=== PATIENT | male | born 1955 | race Caucasian/White ===

== ENCOUNTER 2020-04-12 06:48 | Outpatient (REF) | payer MEDICARE, SELFPAY ==
[2020-04-12 07:55] LABS: MANUAL DIFF FLAG NO
[2020-04-12 07:59] LABS: Basophils Percent Auto 0.5 % (0-2); Eosinophils Absolute Auto 0.1 X10*3/uL (0.0-0.4); Eosinophils Percent Auto 1.5 % (0-4); Hematocrit 43.8 % (42-52); Hemoglobin 14.5 g/dl (14.0-18.0); Imm Gran Abs Auto 0.02 X10*3/uL (0.00-0.03); Imm Gran Pct Auto 0.3 % (0.0-0.4); Lymphocytes Absolute Auto 2.3 X10*3/uL (1.2-4.9); Lymphocytes Percent Auto 30.8 % (20-40); Mean Corpuscular HGB Conc 33.1 g/dl (31.0-36.0); Mean Corpuscular Hemoglobin 32.1 pg (27.0-33.0); Mean Corpuscular Volume 96.9 fL (80-98); Mean Platelet Volume 10.2 fL (9.4-12.4); Monocytes Absolute Auto 0.8 X10*3/uL (0.1-1.2); Monocytes Percent Auto 10.4 % (2-11); Neutrophils Absolute Auto 4.1 X10*3/uL (2.0-8.3); Neutrophils Percent Auto 56.5 % (45-73); Platelet Count 214 X10*3/uL (160-400); Red Blood Count 4.52 X10*6/uL (4.60-5.80); Red Cell Distribution Width 13.6 % (11.0-16.0); White Blood Count 7.3 X10*3/uL (4.8-10.8)
[2020-04-12 08:23] LABS: Alanine Aminotransferase 30 U/L (0-40); Albumin Level 4.4 g/dL (3.5-5.0); Alkaline Phosphatase 46 U/L (39-117); Anion Gap 12 (12-20); Aspartate Amino Transferase 23 U/L (5-37); Bilirubin Total 0.9 mg/dL (0.0-1.0); Blood Urea Nitrogen 14 mg/dL (9-16); Carbon Dioxide 29 mmol/L (22-29); Chloride 103 mmol/L (96-108); Cholesterol 180 mg/dL; Estimated Glomerular Filt Rate > 60; Glucose Fasting 126 mg/dL (60-99); HDL Cholesterol 50 mg/dL; LDL Cholesterol Calculated 84 mg/dl; Potassium 4.6 mmol/l (3.3-5.1); Sodium 139 mmol/L (135-145); Total Protein 7.1 g/dL (6.5-8.0); Triglycerides 233 mg/dL
[2020-04-12 08:25] LABS: Estimated Average Glucose 128 mg/dL; Hemoglobin A1c % 6.1 %
== END 2020-04-12 06:49 | disposition home or self-care (01) ==
LOC: HO.LAB 06:48
PROVIDERS: Visit Provider Internal Medicine Medical Oncology
DX: E11.9 Type 2 diabetes mellitus without complications (principal); I10 Essential (primary) hypertension; E78.00 Pure hypercholesterolemia, unspecified
CPT/HCPCS: 36415; 80053; 80061; 83036; 85025

== ENCOUNTER 2020-07-12 06:51 | Outpatient (REF) | payer MEDICARE, SELFPAY ==
[2020-07-12 08:09] LABS: MANUAL DIFF FLAG NO
[2020-07-12 08:21] LABS: Basophils Absolute Auto 0.1 X10*3/uL (0.0-0.2); Basophils Percent Auto 0.9 % (0-2); Eosinophils Absolute Auto 0.2 X10*3/uL (0.0-0.4); Hematocrit 42.2 % (42-52); Hemoglobin 13.8 g/dl (14.0-18.0); Imm Gran Abs Auto 0.01 X10*3/uL (0.00-0.03); Imm Gran Pct Auto 0.2 % (0.0-0.4); Lymphocytes Absolute Auto 2.1 X10*3/uL (1.2-4.9); Lymphocytes Percent Auto 37.4 % (20-40); Mean Corpuscular HGB Conc 32.7 g/dl (31.0-36.0); Mean Corpuscular Hemoglobin 32.1 pg (27.0-33.0); Mean Corpuscular Volume 98.1 fL (80-98); Monocytes Absolute Auto 0.6 X10*3/uL (0.1-1.2); Monocytes Percent Auto 10.5 % (2-11); Neutrophils Absolute Auto 2.7 X10*3/uL (2.0-8.3); Platelet Count 222 X10*3/uL (160-400); Red Cell Distribution Width 14.6 % (11.0-16.0); White Blood Count 5.6 X10*3/uL (4.8-10.8)
[2020-07-12 08:27] LABS: Estimated Average Glucose 114 mg/dL; Hemoglobin A1C 140.7385 umol/L; Hemoglobin A1c % 5.6 %
[2020-07-12 08:42] LABS: Alanine Aminotransferase 23 U/L (0-40); Albumin Level 4.2 g/dL (3.5-5.0); Alkaline Phosphatase 45 U/L (39-117); Anion Gap 11 (12-20); Aspartate Amino Transferase 20 U/L (5-37); Blood Urea Nitrogen 18 mg/dL (9-16); Calcium 9.3 mg/dL (8.4-10.2); Carbon Dioxide 30 mmol/L (22-29); Chloride 105 mmol/L (96-108); Cholesterol 178 mg/dL; Estimated Glomerular Filt Rate > 60; Glucose Random 138 mg/dL (60-115); HDL Cholesterol 47 mg/dL; LDL Cholesterol Calculated 95 mg/dl; Potassium 4.8 mmol/L (3.3-5.1); Sodium 141 mmol/L (135-145); Total Protein 7.1 g/dL (6.5-8.0); Triglycerides 181 mg/dL
== END 2020-07-12 06:52 | disposition home or self-care (01) ==
LOC: HO.LAB 06:51
PROVIDERS: Visit Provider Internal Medicine Medical Oncology
DX: E11.9 Type 2 diabetes mellitus without complications (principal); I10 Essential (primary) hypertension; E78.49 Other hyperlipidemia
CPT/HCPCS: 36415; 80053; 80061; 83036; 85025

== ENCOUNTER 2020-10-18 06:38 | Outpatient (REF) | payer MEDICARE, SELFPAY ==
[2020-10-18 07:17] LABS: MANUAL DIFF FLAG NO
[2020-10-18 07:20] LABS: Basophils Percent Auto 0.6 % (0-2); Eosinophils Absolute Auto 0.1 X10*3/uL (0.0-0.4); Hematocrit 45.8 % (42-52); Imm Gran Abs Auto 0.01 X10*3/uL (0.00-0.03); Imm Gran Pct Auto 0.2 % (0.0-0.4); Lymphocytes Absolute Auto 2.2 X10*3/uL (1.2-4.9); Lymphocytes Percent Auto 34.3 % (20-40); Mean Corpuscular HGB Conc 32.8 g/dl (31.0-36.0); Mean Corpuscular Hemoglobin 31.5 pg (27.0-33.0); Mean Corpuscular Volume 96.2 fL (80-98); Mean Platelet Volume 10.2 fL (9.4-12.4); Monocytes Absolute Auto 0.6 X10*3/uL (0.1-1.2); Monocytes Percent Auto 10.1 % (2-11); Neutrophils Absolute Auto 3.4 X10*3/uL (2.0-8.3); Neutrophils Percent Auto 52.8 % (45-73); Platelet Count 209 X10*3/uL (160-400); Red Blood Count 4.76 X10*6/uL (4.60-5.80); Red Cell Distribution Width 13.5 % (11.0-16.0); White Blood Count 6.4 X10*3/uL (4.8-10.8)
[2020-10-18 07:44] LABS: Alanine Aminotransferase 25 U/L (0-40); Albumin Level 4.3 g/dL (3.5-5.0); Alkaline Phosphatase 45 U/L (39-117); Anion Gap 11 (12-20); Aspartate Amino Transferase 19 U/L (5-37); Bilirubin Total 0.8 mg/dL (0.0-1.0); Blood Urea Nitrogen 18 mg/dL (9-16); Calcium 9.7 mg/dL (8.4-10.2); Carbon Dioxide 30 mmol/L (22-29); Chloride 104 mmol/L (96-108); Cholesterol 180 mg/dL; Estimated Glomerular Filt Rate > 60; Glucose Fasting 145 mg/dL (60-99); HDL Cholesterol 46 mg/dL; LDL Cholesterol Calculated 93 mg/dl; Potassium 4.9 mmol/L (3.3-5.1); Sodium 140 mmol/L (135-145); Total Protein 7.2 g/dL (6.5-8.0); Triglycerides 205 mg/dL
[2020-10-18 09:04] LABS: Estimated Average Glucose 117 mg/dL; Hemoglobin A1C 149.8652 umol/L; Hemoglobin A1c % 5.7 %
== END 2020-10-18 06:39 | disposition home or self-care (01) ==
LOC: HO.LAB 06:38
PROVIDERS: PCP Internal Medicine Medical Oncology; Visit Provider Internal Medicine Medical Oncology
DX: I10 Essential (primary) hypertension (principal); E78.00 Pure hypercholesterolemia, unspecified; E11.42 Type 2 diabetes mellitus with diabetic polyneuropathy
CPT/HCPCS: 36415; 80053; 80061; 83036; 85025

== ENCOUNTER 2020-11-09 10:19 | Outpatient (REF) | payer MEDICARE, SELFPAY ==
--- NOTE | ~2020-11-09 | XR_ITS ---
EXAMINATION: CR X-RAY KNEE BILATERAL STANDING, KNEE LEFT 2 VIEW CLINICAL INFORMATION: Left knee pain. COMPARISON: 11/23/2019 the radiographs. TECHNIQUE: Bilateral standing AP views of the bilateral knees and 2 views of the left knee were obtained. FINDINGS: Left: Minimal tricompartmental degenerative joint changes are seen. No acute fractures seen. There is a small to moderate suprapatellar joint effusion. The soft tissues are unremarkable. Right: Mild femoral-tibial degenerative joint changes most pronounced medially without significant change. No acute abnormality. XR/XR knee LT 2V IMPRESSION: 1. Minimal left knee tricompartment degenerative joint changes with small to moderate suprapatellar joint effusion. 2. Mild right knee tricompartmental degenerative joint changes without significant change.
--- NOTE | ~2020-11-09 | XR_ITS ---
EXAMINATION: CR X-RAY KNEE BILATERAL STANDING, KNEE LEFT 2 VIEW CLINICAL INFORMATION: Left knee pain. COMPARISON: 11/23/2019 the radiographs. TECHNIQUE: Bilateral standing AP views of the bilateral knees and 2 views of the left knee were obtained. FINDINGS: Left: Minimal tricompartmental degenerative joint changes are seen. No acute fractures seen. There is a small to moderate suprapatellar joint effusion. The soft tissues are unremarkable. Right: Mild femoral-tibial degenerative joint changes most pronounced medially without significant change. No acute abnormality. XR/XR knee standing BI IMPRESSION: 1. Minimal left knee tricompartment degenerative joint changes with small to moderate suprapatellar joint effusion. 2. Mild right knee tricompartmental degenerative joint changes without significant change.
== END 2020-11-09 10:20 | disposition home or self-care (01) ==
LOC: HO.HOSX 10:19
PROVIDERS: Visit Provider Orthopaedic Surgery
DX: M17.12 Unilateral primary osteoarthritis, left knee (principal)
CPT/HCPCS: 20610; 73560; 73565; 99212; J1040

== ENCOUNTER 2020-12-22 10:29 | Emergency (ER) | payer MEDICARE, SELFPAY ==
--- NOTE | ~2020-12-22 | XR_ITS ---
EXAMINATION: XR SHOULDER, LEFT CLINICAL INFORMATION: Limited range of motion and pain. COMPARISON: None TECHNIQUE: AP external rotation, Grashey, scapular Y, and axillary views of the left shoulder. FINDINGS: The bones and soft tissues are normal. No fracture. Glenohumeral and acromioclavicular alignment is anatomic with normal joint space. No abnormal soft tissue calcifications. XR/XR shoulder LT min 2V IMPRESSION: Unremarkable left shoulder.
[2020-12-22 10:55] VITALS: BP 118/80; PULSE 88; RESP 18; TEMP 36.3; O2SAT 98; BMI 35.9
--- NOTE | 2020-12-22 11:44 | ED.FALL ---
HPI - Fall General Chief Complaint: Fall Stated Complaint: FALL Time Seen by Provider: 12/22/20 11:26 History of Present Illness HPI Narrative: Patient complains of left shoulder pain and left knee abrasion after a slip and fall this morning on the sidewalk, no other injury no loss consciousness no headache no neck pain no back pain no numbness weakness or tingling, shoulder pain is mild but worse with movement, no blood thinner and he did not hit his head Related Data Home Medications Medication Instructions Recorded Confirmed simvastatin 5 mg tablet 5 mg PO DAILY 11/09/20 Allergies Allergy/AdvReac Type Severity Reaction Status Date / Time No Known Allergies [NKA] Allergy Verified 11/09/20 13:00 Review of Systems Review of Systems: Positive for bilateral knee pain and left shoulder pain Negatives are no headache no head injury no neck pain no numbness weakness or tingling no back pain no chest pain no preceding dizziness or lightheadedness no fainting no feeling faint no chest pain no palpitations, no numbness weakness or tingling Yes all other systems are reviewed and are negative [facility] Past Medical History Source: nursing notes reviewed Medical History (Updated 12/23/20 @ 00:01 by Vinicius Colvin) High blood pressure High cholesterol History of neuropathy Social History Social History (Updated 11/09/20 @ 13:02 by Kendal Ojeda) Alcohol intake: never Smoked in Last 30 Days: No Use of substances other than those prescribed or required for medical reasons: No Advance Directives: Yes Advance Directives Information Provided: Yes Advance Directives on File: No Current occupational status: retired and disabled 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 Physical Exam Vital Signs: Vital Signs: Last Vital Signs Temp 97.3 F 12/22/20 10:55 Pulse 88 12/22/20 10:55 Resp 18 12/22/20 10:55 BP 118/80 12/22/20 10:55 Pulse Ox 98 12/22/20 10:55 Body Mass Index 35.9 General appearance no acute distress, cooperative Head is normocephalic atraumatic The neck is supple and nontender The chest is clear to auscultation bilateral with no tenderness to the chest wall no rib tenderness no pleuritic pain The abdomen soft nontender The extremities there is good range of motion in both knees but there is some tenderness and abrasion, neurovascular intact distal The left shoulder had some anterior and lateral tenderness, range of motion was mildly limited by discomfort there was no swelling no deformity it is neurovascular intact distal and the skin was normal without wound or laceration Neuro cranial nerves 2-12 intact as tested, no motor deficit Course Course Course Narrative: X-rays were negative and well-appearing patient is discharged to follow with orthopedics if needed X-rays of left shoulder and both knees were done with no acute fractures a low of both knees did show osteoarthritis Discharge Plan Discharge Clinical Impression: Sprain of left shoulder, Abrasion of knee, left Patient Disposition: Home, Self-Care Additional Instructions: X-ray did not show any broken bone in the shoulder, but most shoulder injuries are soft tissue injuries which do not show up on x-ray follow Follow with orthopedist for further evaluation We gave you a sling for the shoulder but if you use it for too long you lose muscle tone and range of motion, so make sure to move the arm and test range of motion whenever possible We gave you a tetanus shot for the abrasion on her knee You can use Tylenol, or Naprosyn occasionally for pain as needed Return any time any concerns Referrals: Howie Rico MD [Physician] - 10 days (Left shoulder sprain) Interventions: ED Discharge Assessment Last Done: 12/22/20 11:54 Discharge Date/Time: 12/22/20 11:55
[2020-12-22] MEDS: Diphth,Pertus(ACell),Tet Adult 0.5 ML SYRINGE IM (11:49)
== END 2020-12-22 11:55 | disposition home or self-care (01) ==
PROVIDERS: Emergency Provider Emergency Medicine; PCP Internal Medicine Medical Oncology
DX: S43.402A Unspecified sprain of left shoulder joint, initial encounter (principal); S80.212A Abrasion, left knee, initial encounter; W01.0XXA Fall on same level from slipping, tripping and stumbling without subsequent striking against object, initial encounter; Y93.01 Activity, walking, marching and hiking; Y92.480 Sidewalk as the place of occurrence of the external cause; Y99.9 Unspecified external cause status
CPT/HCPCS: 73030; 90471; 90715; 99284

== ENCOUNTER 2021-01-30 07:01 | Outpatient (REF) | payer MEDICARE, SELFPAY ==
[2021-01-30 07:38] LABS: MANUAL DIFF FLAG NO
[2021-01-30 07:44] LABS: Basophils Absolute Auto 0.1 X10*3/uL (0.0-0.2); Basophils Percent Auto 0.8 % (0-2); Eosinophils Absolute Auto 0.1 X10*3/uL (0.0-0.4); Eosinophils Percent Auto 1.9 % (0-4); Hematocrit 41.6 % (42-52); Hemoglobin 13.9 g/dl (14.0-18.0); Imm Gran Abs Auto 0.01 X10*3/uL (0.00-0.03); Imm Gran Pct Auto 0.2 % (0.0-0.4); Lymphocytes Absolute Auto 2.2 X10*3/uL (1.2-4.9); Lymphocytes Percent Auto 37.9 % (20-40); Mean Corpuscular HGB Conc 33.4 g/dl (31.0-36.0); Mean Corpuscular Hemoglobin 32.2 pg (27.0-33.0); Mean Corpuscular Volume 96.3 fL (80-98); Mean Platelet Volume 10.2 fL (9.4-12.4); Monocytes Absolute Auto 0.7 X10*3/uL (0.1-1.2); Monocytes Percent Auto 12.2 % (2-11); Neutrophils Absolute Auto 2.8 X10*3/uL (2.0-8.3); Platelet Count 218 X10*3/uL (160-400); Red Blood Count 4.32 X10*6/uL (4.60-5.80); Red Cell Distribution Width 13.5 % (11.0-16.0); White Blood Count 5.9 X10*3/uL (4.8-10.8)
[2021-01-30 07:57] LABS: Microalbum/Creatinine Ratio Ur 7.3 ug/mg cr
[2021-01-30 07:59] LABS: Estimated Average Glucose 111 mg/dL; Hemoglobin A1c % 5.5 %
[2021-01-30 08:00] LABS: Alanine Aminotransferase 20 U/L (0-40); Albumin Level 4.2 g/dL (3.5-5.0); Alkaline Phosphatase 48 U/L (39-117); Anion Gap 11 (12-20); Aspartate Amino Transferase 18 U/L (5-37); Blood Urea Nitrogen 18 mg/dL (9-16); Calcium 9.4 mg/dL (8.4-10.2); Carbon Dioxide 28 mmol/L (22-29); Chloride 105 mmol/L (96-108); Cholesterol 174 mg/dL; Estimated Glomerular Filt Rate > 60; Glucose Fasting 129 mg/dL (60-99); HDL Cholesterol 43 mg/dL; LDL Cholesterol Calculated 92 mg/dl; Potassium 4.8 mmol/L (3.3-5.1); Sodium 139 mmol/L (135-145); Triglycerides 198 mg/dL
== END 2021-01-30 07:02 | disposition home or self-care (01) ==
LOC: HO.LAB 07:01
PROVIDERS: PCP Internal Medicine Medical Oncology; Visit Provider Internal Medicine Medical Oncology
DX: E11.9 Type 2 diabetes mellitus without complications (principal); I10 Essential (primary) hypertension; E78.00 Pure hypercholesterolemia, unspecified
CPT/HCPCS: 36415; 80053; 80061; 82043; 83036; 85025

== ENCOUNTER 2021-05-01 07:01 | Outpatient (REF) | payer MEDICARE, SELFPAY ==
[2021-05-01 07:10] LABS: MANUAL DIFF FLAG NO
[2021-05-01 07:20] LABS: Basophils Percent Auto 0.6 % (0-2); Eosinophils Absolute Auto 0.1 X10*3/uL (0.0-0.4); Hematocrit 44.5 % (42.0-52.0); Hemoglobin 14.8 g/dl (14.0-18.0); Imm Gran Abs Auto 0.02 X10*3/uL (0.00-0.03); Imm Gran Pct Auto 0.3 % (0.0-0.4); Lymphocytes Absolute Auto 2.4 X10*3/uL (1.2-4.9); Lymphocytes Percent Auto 35.1 % (20-40); Mean Corpuscular HGB Conc 33.3 g/dl (31.0-36.0); Mean Corpuscular Volume 96.3 fL (80.0-98.0); Mean Platelet Volume 9.9 fL (9.4-12.4); Monocytes Absolute Auto 0.8 X10*3/uL (0.1-1.2); Monocytes Percent Auto 11.6 % (2-11); Neutrophils Absolute Auto 3.5 x10*3/uL (2.0-8.3); Neutrophils Percent Auto 50.4 % (45-73); Platelet Count 203 X10*3/uL (160-400); Red Blood Count 4.62 X10*6/uL (4.60-5.80); Red Cell Distribution Width 13.7 % (11.0-16.0); White Blood Count 6.9 X10*3/uL (4.8-10.8)
[2021-05-01 07:32] LABS: Estimated Average Glucose 123 mg/dL; Hemoglobin A1c % 5.9 %
[2021-05-01 07:47] LABS: Alanine Aminotransferase 22 U/L (0-40); Albumin Level 4.2 g/dL (3.5-5.0); Alkaline Phosphatase 51 U/L (39-117); Anion Gap 12 (12-20); Aspartate Amino Transferase 19 U/L (5-37); Blood Urea Nitrogen 18 mg/dL (9-16); Calcium 9.5 mg/dL (8.4-10.2); Carbon Dioxide 27 mmol/L (22-29); Chloride 106 mmol/L (96-108); Cholesterol 187 mg/dL; Estimated Glomerular Filt Rate > 60; Glucose Fasting 134 mg/dL (60-99); HDL Cholesterol 42 mg/dL; LDL Cholesterol Calculated 106 mg/dl; Potassium 4.9 mmol/L (3.3-5.1); Sodium 140 mmol/L (135-145); Total Protein 7.2 g/dL (6.5-8.0); Triglycerides 199 mg/dL
[2021-05-01 09:49] LABS: Creatinine Urine 171.95 mg/dL; Microalbum/Creatinine Ratio Ur 8.1 ug/mg cr
== END 2021-05-01 07:02 | disposition home or self-care (01) ==
LOC: HO.LAB 07:01
PROVIDERS: PCP Internal Medicine Medical Oncology; Visit Provider Internal Medicine Medical Oncology
DX: E11.9 Type 2 diabetes mellitus without complications (principal); E78.01 Familial hypercholesterolemia
CPT/HCPCS: 36415; 80053; 80061; 82043; 83036; 85025

== ENCOUNTER 2021-07-31 06:58 | Outpatient (REF) | payer MEDICARE, SELFPAY ==
[2021-07-31 07:21] LABS: MANUAL DIFF FLAG NO
[2021-07-31 08:12] LABS: Basophils Percent Auto 0.5 % (0-2); Eosinophils Absolute Auto 0.1 X10*3/uL (0.0-0.4); Eosinophils Percent Auto 1.6 % (0-4); Hematocrit 45.3 % (42.0-52.0); Hemoglobin 14.9 g/dl (14.0-18.0); Imm Gran Abs Auto 0.02 X10*3/uL (0.00-0.03); Imm Gran Pct Auto 0.3 % (0.0-0.4); Lymphocytes Absolute Auto 2.1 X10*3/uL (1.2-4.9); Lymphocytes Percent Auto 32.9 % (20-40); Mean Corpuscular HGB Conc 32.9 g/dl (31.0-36.0); Mean Corpuscular Hemoglobin 31.4 pg (27.0-33.0); Mean Corpuscular Volume 95.6 fL (80.0-98.0); Mean Platelet Volume 10.4 fL (9.4-12.4); Monocytes Absolute Auto 0.7 X10*3/uL (0.1-1.2); Monocytes Percent Auto 10.4 % (2-11); Neutrophils Absolute Auto 3.5 x10*3/uL (2.0-8.3); Neutrophils Percent Auto 54.3 % (45-73); Platelet Count 213 X10*3/uL (160-400); Red Blood Count 4.74 X10*6/uL (4.60-5.80); Red Cell Distribution Width 13.8 % (11.0-16.0); White Blood Count 6.4 X10*3/uL (4.8-10.8)
[2021-07-31 08:28] LABS: Estimated Average Glucose 120 mg/dL; Hemoglobin A1C 148.8465 umol/L; Hemoglobin A1c % 5.8 %
[2021-07-31 08:49] LABS: Alanine Aminotransferase 20 U/L (0-40); Albumin Level 4.3 g/dL (3.5-5.0); Alkaline Phosphatase 52 U/L (39-117); Anion Gap 11 (12-20); Aspartate Amino Transferase 18 U/L (5-37); Bilirubin Total 0.8 mg/dL (0.0-1.0); Blood Urea Nitrogen 19 mg/dL (9-16); Calcium 9.8 mg/dL (8.4-10.2); Carbon Dioxide 29 mmol/L (22-29); Chloride 105 mmol/L (96-108); Cholesterol 194 mg/dL; Estimated Glomerular Filt Rate > 60; Glucose Fasting 135 mg/dL (60-99); HDL Cholesterol 45 mg/dL; LDL Cholesterol Calculated 109 mg/dl; Potassium 5.1 mmol/L (3.3-5.1); Sodium 140 mmol/L (135-145); Total Protein 7.3 g/dL (6.5-8.0); Triglycerides 201 mg/dL
== END 2021-07-31 06:59 | disposition home or self-care (01) ==
LOC: HO.LAB 06:58
PROVIDERS: PCP Internal Medicine Medical Oncology; Visit Provider Internal Medicine Medical Oncology
DX: E11.9 Type 2 diabetes mellitus without complications (principal); E66.9 Obesity, unspecified; E78.01 Familial hypercholesterolemia
CPT/HCPCS: 36415; 80053; 80061; 83036; 85025

== ENCOUNTER → 2021-09-26 08:33 | Outpatient (BNVA) | payer MEDICARE, SELFPAY | PROVIDERS: PCP Internal Medicine Medical Oncology; Visit Provider Orthopaedic Surgery | DX: M17.12 Unilateral primary osteoarthritis, left knee (principal); E11.9 Type 2 diabetes mellitus without complications | CPT/HCPCS: 20610; 99212; J1100 ==

== ENCOUNTER 2021-10-30 06:25 | Outpatient (REF) | payer MEDICARE, SELFPAY ==
[2021-10-30 06:37] LABS: MANUAL DIFF FLAG NO
[2021-10-30 07:18] LABS: Basophils Absolute Auto 0.1 X10*3/uL (0.0-0.2); Basophils Percent Auto 0.7 % (0-2); Eosinophils Absolute Auto 0.1 X10*3/uL (0.0-0.4); Eosinophils Percent Auto 1.6 % (0-4); Hematocrit 42.6 % (42.0-52.0); Hemoglobin 14.2 g/dl (14.0-18.0); Imm Gran Abs Auto 0.01 X10*3/uL (0.00-0.03); Imm Gran Pct Auto 0.1 % (0.0-0.4); Lymphocytes Absolute Auto 2.1 X10*3/uL (1.2-4.9); Lymphocytes Percent Auto 31.5 % (20-40); Mean Corpuscular HGB Conc 33.3 g/dl (31.0-36.0); Mean Corpuscular Hemoglobin 32.2 pg (27.0-33.0); Mean Corpuscular Volume 96.6 fL (80.0-98.0); Mean Platelet Volume 10.2 fL (9.4-12.4); Monocytes Absolute Auto 0.8 X10*3/uL (0.1-1.2); Monocytes Percent Auto 11.5 % (2-11); Neutrophils Absolute Auto 3.7 x10*3/uL (2.0-8.3); Neutrophils Percent Auto 54.6 % (45-73); Platelet Count 208 X10*3/uL (160-400); Red Blood Count 4.41 X10*6/uL (4.60-5.80); Red Cell Distribution Width 14.2 % (11.0-16.0); White Blood Count 6.7 X10*3/uL (4.8-10.8)
[2021-10-30 07:39] LABS: Alanine Aminotransferase 26 U/L (0-40); Albumin Level 4.1 g/dL (3.5-5.0); Alkaline Phosphatase 53 U/L (39-117); Anion Gap 10 (12-20); Aspartate Amino Transferase 16 U/L (5-37); Bilirubin Total 0.7 mg/dL (0.0-1.0); Blood Urea Nitrogen 17 mg/dL (9-16); Calcium 9.6 mg/dL (8.4-10.2); Carbon Dioxide 30 mmol/L (22-29); Chloride 105 mmol/L (96-108); Cholesterol 173 mg/dL; Estimated Glomerular Filt Rate > 60; Glucose Fasting 148 mg/dL (60-99); HDL Cholesterol 41 mg/dL; LDL Cholesterol Calculated 91 mg/dl; Potassium 4.7 mmol/L (3.3-5.1); Sodium 140 mmol/L (135-145); Total Protein 6.9 g/dL (6.5-8.0); Triglycerides 209 mg/dL
[2021-10-30 07:44] LABS: Estimated Average Glucose 123 mg/dL; Hemoglobin A1c % 5.9 %
[2021-10-30 09:08] LABS: Creatinine Urine 152.28 mg/dL; Microalbum/Creatinine Ratio Ur 4.5 ug/mg cr
== END 2021-10-30 06:26 | disposition home or self-care (01) ==
LOC: HO.LAB 06:25
PROVIDERS: PCP Internal Medicine Medical Oncology; Visit Provider Internal Medicine Medical Oncology
DX: E11.9 Type 2 diabetes mellitus without complications (principal); E66.9 Obesity, unspecified; E78.01 Familial hypercholesterolemia
CPT/HCPCS: 36415; 80053; 80061; 82043; 83036; 85025

== ENCOUNTER 2022-03-25 06:30 | Outpatient (REF) | payer MEDICARE, SELFPAY ==
[2022-03-25 06:40] LABS: MANUAL DIFF FLAG NO
[2022-03-25 07:38] LABS: Basophils Absolute Auto 0.1 X10*3/uL (0.0-0.2); Basophils Percent Auto 0.7 % (0-2); Eosinophils Absolute Auto 0.2 X10*3/uL (0.0-0.4); Eosinophils Percent Auto 2.2 % (0-4); Hematocrit 39.7 % (42.0-52.0); Hemoglobin 13.3 g/dl (14.0-18.0); Imm Gran Abs Auto 0.02 X10*3/uL (0.00-0.03); Imm Gran Pct Auto 0.3 % (0.0-0.4); Lymphocytes Absolute Auto 2.3 X10*3/uL (1.2-4.9); Lymphocytes Percent Auto 33.1 % (20-40); Mean Corpuscular HGB Conc 33.5 g/dl (31.0-36.0); Mean Corpuscular Hemoglobin 33.1 pg (27.0-33.0); Mean Corpuscular Volume 98.8 fL (80.0-98.0); Mean Platelet Volume 10.4 fL (9.4-12.4); Monocytes Absolute Auto 0.8 X10*3/uL (0.1-1.2); Monocytes Percent Auto 11.5 % (2-11); Neutrophils Absolute Auto 3.6 x10*3/uL (2.0-8.3); Neutrophils Percent Auto 52.2 % (45-73); Platelet Count 236 X10*3/uL (160-400); Red Blood Count 4.02 X10*6/uL (4.60-5.80); Red Cell Distribution Width 15.5 % (11.0-16.0); White Blood Count 6.8 X10*3/uL (4.8-10.8)
[2022-03-25 10:39] LABS: Alanine Aminotransferase 14 U/L (0-40); Albumin Level 4.3 g/dL (3.5-5.0); Alkaline Phosphatase 61 U/L (39-117); Anion Gap 17 (12-20); Aspartate Amino Transferase 15 U/L (5-37); Bilirubin Total 0.9 mg/dL (0.0-1.0); Blood Urea Nitrogen 19 mg/dL (9-16); Calcium 9.3 mg/dL (8.4-10.2); Carbon Dioxide 26 mmol/L (22-29); Chloride 105 mmol/L (96-108); Cholesterol 182 mg/dL; Estimated Glomerular Filt Rate > 60; Glucose Fasting 126 mg/dL (60-99); HDL Cholesterol 45 mg/dL; LDL Cholesterol Calculated 97 mg/dl; Potassium 4.8 mmol/L (3.3-5.1); Sodium 143 mmol/L (135-145); Total Protein 7.2 g/dL (6.5-8.0); Triglycerides 201 mg/dL
== END 2022-03-25 06:31 | disposition home or self-care (01) ==
LOC: HO.LAB 06:30
PROVIDERS: PCP Internal Medicine Medical Oncology; Visit Provider Internal Medicine Medical Oncology
DX: E11.9 Type 2 diabetes mellitus without complications (principal); E66.9 Obesity, unspecified; I10 Essential (primary) hypertension
CPT/HCPCS: 36415; 80053; 80061; 85025

== ENCOUNTER 2022-06-11 06:24 | Outpatient (REF) | payer MEDICARE, SELFPAY ==
[2022-06-11 06:29] LABS: MANUAL DIFF FLAG NO
[2022-06-11 07:09] LABS: Basophils Percent Auto 0.6 % (0-2); Eosinophils Absolute Auto 0.1 X10*3/uL (0.0-0.4); Eosinophils Percent Auto 1.8 % (0-4); Hematocrit 42.5 % (42.0-52.0); Imm Gran Abs Auto 0.01 X10*3/uL (0.00-0.03); Imm Gran Pct Auto 0.2 % (0.0-0.4); Lymphocytes Absolute Auto 2.4 X10*3/uL (1.2-4.9); Lymphocytes Percent Auto 35.9 % (20-40); Mean Corpuscular HGB Conc 32.9 g/dl (31.0-36.0); Mean Corpuscular Hemoglobin 31.8 pg (27.0-33.0); Mean Corpuscular Volume 96.6 fL (80.0-98.0); Mean Platelet Volume 10.3 fL (9.4-12.4); Monocytes Absolute Auto 0.7 X10*3/uL (0.1-1.2); Monocytes Percent Auto 11.2 % (2-11); Neutrophils Absolute Auto 3.3 x10*3/uL (2.0-8.3); Neutrophils Percent Auto 50.3 % (45-73); Platelet Count 217 X10*3/uL (160-400); Red Cell Distribution Width 13.4 % (11.0-16.0); White Blood Count 6.6 X10*3/uL (4.8-10.8)
[2022-06-11 07:26] LABS: Estimated Average Glucose 111 mg/dL; Hemoglobin A1c % 5.5 %
[2022-06-11 07:47] LABS: Alanine Aminotransferase 22 U/L (0-40); Albumin Level 4.3 g/dL (3.5-5.0); Alkaline Phosphatase 50 U/L (39-117); Anion Gap 13 (12-20); Aspartate Amino Transferase 17 U/L (5-37); Bilirubin Total 0.9 mg/dL (0.0-1.0); Blood Urea Nitrogen 18 mg/dL (9-16); Calcium 9.9 mg/dL (8.4-10.2); Carbon Dioxide 29 mmol/L (22-29); Chloride 105 mmol/L (96-108); Cholesterol 195 mg/dL; Estimated Glomerular Filt Rate > 60; Glucose Fasting 128 mg/dL (60-99); HDL Cholesterol 54 mg/dL; LDL Cholesterol Calculated 105 mg/dl; Sodium 142 mmol/L (135-145); Total Protein 7.2 g/dL (6.5-8.0); Triglycerides 181 mg/dL
[2022-06-11 08:04] LABS: Prostate Specific Antigen 0.23 ng/mL (<0.05-4.0); Vitamin D 25-OH Total 23.3 ng/mL (>30)
== END 2022-06-11 06:25 | disposition home or self-care (01) ==
LOC: HO.LAB 06:24
PROVIDERS: PCP Internal Medicine Medical Oncology; Visit Provider Internal Medicine Medical Oncology
DX: Z12.5 Encounter for screening for malignant neoplasm of prostate (principal); E11.9 Type 2 diabetes mellitus without complications; E78.01 Familial hypercholesterolemia
CPT/HCPCS: 36415; 80053; 80061; 82306; 83036; 84153; 85025

== ENCOUNTER 2022-07-28 07:07 | Day surgery (SDC) | payer MEDICARE, SELFPAY ==
[2022-07-28 07:14] VITALS: BMI 33.2
[2022-07-28 07:27] VITALS: BP 137/71; PULSE 68; RESP 16; TEMP 36.2; O2SAT 98
[2022-07-28 07:35] LABS: Glucose, Whole Blood 117 mg/dL (60-115)
[2022-07-28 09:55] VITALS: BP 84/56; PULSE 74; RESP 16; TEMP 36.8; O2SAT 96
--- NOTE | 2022-07-28 09:56 | P.BOP_ITS ---
Brief Operative Note Date of Service: 07/28/22 Pre-op diagnosis: Screening Post-op diagnosis: other (Diverticulosis) Procedure: Colonoscopy to the cecum Surgeon: Damon Colbert Anesthesia: MAC Was an Commercial Real Estate Appraiser used for this Procedure?: No Estimated blood loss (mL): 0 Pathology: none sent Condition: stable Disposition: PACU
[2022-07-28 10:10] VITALS: BP 105/70; PULSE 54; RESP 16; TEMP 36.8; O2SAT 98
--- NOTE | 2022-07-28 11:08 | OP_ITS ---
SURGEON: Damon Colbert MD INDICATIONS: The patient presents for followup of personal history of tubular adenoma of the colon and need for colorectal cancer screening. Full consent has been obtained from him for this, including risks of bleeding and perforation. PREOPERATIVE DIAGNOSIS: POSTOPERATIVE DIAGNOSIS: PROCEDURE PERFORMED: Colonoscopy to the cecum. ESTIMATED BLOOD LOSS: COMPLICATIONS: ANESTHESIA: Monitored anesthesia care. ASSISTANTS: SPECIMENS: PREOPERATIVE DIAGNOSES: Colorectal cancer screening and personal history of tubular adenomas of the colon. POSTOPERATIVE DIAGNOSES: Colorectal cancer screening and personal history of tubular adenomas of the colon, diverticulosis, internal hemorrhoids and limited prep. DESCRIPTION OF PROCEDURE: The patient was placed in the left lateral decubitus position. The digital rectal exam revealed no abnormalities. The Olympus video pediatric colonoscope was entered into the rectum and advanced to the cecum. Advancement to the cecum was difficult and required abdominal wall pressure. Once in the cecum, I did identify a normal-appearing cecal pouch with appendiceal orifice and a normal-appearing ileocecal valve. The entire cecum was well visualized and appeared normal without any sign of mass or ulceration. The scope was slowly withdrawn assessing all mucosal surfaces carefully. Preparation of the ascending and transverse colon was good. Preparation of the sigmoid and descending colon was definitely limited by some solid and liquid stool which was all irrigated and suctioned away as best as possible, but still limited visualization. I did not visualize any polyps, colitis nor angiodysplasias. There was mild amount of sigmoid diverticulosis. In the rectum, the scope was retroflexed visualizing internal hemorrhoids, but no other pathology. The rectal mucosa appeared normal. The scope was straightened and withdrawn from the patient. He tolerated the procedure well and was returned to the recovery area in stable condition. IMPRESSION: 1. Diverticulosis. 2. Internal hemorrhoids. PLAN: Given his previous history, I would recommend a followup colonoscopy in 5 years for further surveillance. I would recommend that he will have a complete 2-day prep at that time to facilitate a better clean out. Given colonoscopies in 2006, 2011, 2018 and today, along with no GI symptoms and no family history of colon cancer, I do not think a colonoscopy needs to be done any sooner than in 5 years. MD NERI Vinson/JOSEPH / [phone] [facility]
--- NOTE | 2022-07-28 13:49 | HO.ANESPROP2 ---
HPI - Anesthesia Eval Consult details Narrative: screening [facility] Active Problems Active Problems: All Active Problems (Updated 07/24/22 @ 13:51 by Saima Feliz RN) Primary osteoarthritis of left knee (Acute) Past Medical History Medical History (Updated 07/24/22 @ 13:51 by Saima Feliz RN) Diabetes High blood pressure High cholesterol History of neuropathy Family History Family history of problems with anesthesia: No Surgical History Surgical History (Updated 07/24/22 @ 13:52 by Saima Feliz RN) History of arthroscopy of left knee History of back surgery Hx of colonoscopy History of Problems with Anesthesia: No Social History Social History (Updated 09/26/21 @ 08:56 by Gema Recinos Gómez) Alcohol intake: never Patient Tobacco Use Status: Never used Tobacco Second Hand Smoke Exposure: No Use of substances other than those prescribed or required for medical reasons: No Are you DNR?: No Advance Directives: No Advance Directives Information Provided: Yes Advance Directives on File: No Current occupational status: retired and disabled 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 Meds Allergies Allergy/AdvReac Type Severity Reaction Status Date / Time No Known Allergies [NKA] Allergy Verified 09/26/21 08:50 Home Medications Medication Instructions Recorded Confirmed Last Taken Type simvastatin 5 mg tablet 40 mg PO DAILY 11/09/20 07/28/22 Unknown History aspirin 81 mg tablet,delayed 81 mg PO DAILY 09/26/21 07/28/22 07/21/22 History release lisinopril 40 mg tablet 40 mg PO DAILY 09/26/21 07/28/22 07/28/22 History metformin 500 mg tablet 500 mg PO DAILY 09/26/21 07/28/22 Unknown History omega 0-ktc-jot-fish oil 1,200 mg 1 cap PO DAILY 09/26/21 07/21/22 History (144 mg-216 mg) capsule (Fish Oil) pregabalin 150 mg capsule (Lyrica) 150 mg PO DAILY 09/26/21 07/28/22 Unknown History Exam Exam Date and Time: July 28, 2022 1349 Height,Weight and Vital Signs: Height 5 ft 9 in Weight 102.058 kg Last Vital Signs Temp 98.2 F 07/28/22 10:10 Pulse 54 07/28/22 10:10 Resp 16 07/28/22 10:10 BP 105/70 07/28/22 10:10 Pulse Ox 98 07/28/22 10:10 O2 Del Method 07/28/22 10:10 Pertinent Lab Results Pertinent Lab Results: Laboratory Tests 07/28/22 07:29 POC Glucose 117 H Airway Mallampati Class: II TM Dist: >3cm Neck ROM: Full Heart: rr Lungs: cta Assessment and Plan Final Anesthetic Review Family History of Problems with Anesthesia: No History of Problems with Anesthesia: No NPO: Yes ASA Class: II Final Preanesthetic Review: No Changes in Pt Med Stat, Meds/Allgs Chart Reviewed, Consent Obtained/Reviewed and Anes Risks/Benef Reviewed Patient Risk: Low Procedure Risk: Low Anesthetic Plan Anesthetic Plan: MAC: Disposition: Standard PACU
== END 2022-07-28 11:03 | disposition home or self-care (01) ==
PROVIDERS: PCP Internal Medicine Medical Oncology; Visit Provider Internal Medicine
PROC: 0DJD8ZZ Inspection of Lower Intestinal Tract, Via Natural or Artificial Opening Endoscopic (ICD-10-PCS; CPT 45378; principal; 2022-07-28 08:40)
DX: Z12.11 Encounter for screening for malignant neoplasm of colon (principal); Z86.010 Personal history of colon polyps; K57.30 Diverticulosis of large intestine without perforation or abscess without bleeding; K64.8 Other hemorrhoids; I10 Essential (primary) hypertension; E78.5 Hyperlipidemia, unspecified; E11.9 Type 2 diabetes mellitus without complications; Z79.82 Long term (current) use of aspirin; Z79.84 Long term (current) use of oral hypoglycemic drugs; Z79.899 Other long term (current) drug therapy
CPT/HCPCS: G0105; 82947

== ENCOUNTER 2022-09-24 06:23 | Outpatient (REF) | payer MEDICARE, SELFPAY ==
[2022-09-24 06:33] LABS: MANUAL DIFF FLAG NO
[2022-09-24 07:19] LABS: Basophils Percent Auto 0.8 % (0-2); Eosinophils Absolute Auto 0.1 X10*3/uL (0.0-0.4); Eosinophils Percent Auto 1.7 % (0-4); Hematocrit 39.7 % (42.0-52.0); Hemoglobin 13.4 g/dl (14.0-18.0); Imm Gran Abs Auto 0.01 X10*3/uL (0.00-0.03); Imm Gran Pct Auto 0.2 % (0.0-0.4); Lymphocytes Absolute Auto 1.6 X10*3/uL (1.2-4.9); Lymphocytes Percent Auto 30.8 % (20-40); Mean Corpuscular HGB Conc 33.8 g/dl (31.0-36.0); Mean Corpuscular Hemoglobin 32.8 pg (27.0-33.0); Mean Corpuscular Volume 97.1 fL (80.0-98.0); Monocytes Absolute Auto 0.6 X10*3/uL (0.1-1.2); Monocytes Percent Auto 11.3 % (2-11); Neutrophils Absolute Auto 2.9 x10*3/uL (2.0-8.3); Neutrophils Percent Auto 55.2 % (45-73); Platelet Count 241 X10*3/uL (160-400); Red Blood Count 4.09 X10*6/uL (4.60-5.80); Red Cell Distribution Width 13.4 % (11.0-16.0); White Blood Count 5.3 X10*3/uL (4.8-10.8)
[2022-09-24 07:33] LABS: Estimated Average Glucose 103 mg/dL; Hemoglobin A1c % 5.2 %
[2022-09-24 07:42] LABS: Alanine Aminotransferase 21 U/L (0-40); Albumin Level 4.5 g/dL (3.5-5.0); Alkaline Phosphatase 58 U/L (39-117); Anion Gap 12 (12-20); Aspartate Amino Transferase 20 U/L (5-37); Blood Urea Nitrogen 18 mg/dL (9-16); Calcium 9.9 mg/dL (8.4-10.2); Carbon Dioxide 28 mmol/L (22-29); Chloride 105 mmol/L (96-108); Cholesterol 175 mg/dL; Estimated Glomerular Filt Rate > 60; Glucose Random 99 mg/dL (60-115); HDL Cholesterol 44 mg/dL; LDL Cholesterol Calculated 99 mg/dl; Potassium 4.8 mmol/L (3.3-5.1); Sodium 140 mmol/L (135-145); Total Protein 7.3 g/dL (6.5-8.0); Triglycerides 163 mg/dL
== END 2022-09-24 06:24 | disposition home or self-care (01) ==
LOC: HO.LAB 06:23
PROVIDERS: PCP Internal Medicine Medical Oncology; Visit Provider Internal Medicine Medical Oncology
DX: E11.42 Type 2 diabetes mellitus with diabetic polyneuropathy (principal); I10 Essential (primary) hypertension; E78.01 Familial hypercholesterolemia
CPT/HCPCS: 36415; 80053; 80061; 83036; 85025

== ENCOUNTER 2023-02-05 06:44 | Outpatient (REF) | payer MEDICARE, SELFPAY ==
[2023-02-05 07:01] LABS: MANUAL DIFF FLAG NO
[2023-02-05 08:25] LABS: Estimated Average Glucose 97 mg/dL
[2023-02-05 08:32] LABS: Basophils Percent Auto 0.5 % (0-2); Eosinophils Absolute Auto 0.1 X10*3/uL (0.0-0.4); Eosinophils Percent Auto 1.7 % (0-4); Hematocrit 42.1 % (42.0-52.0); Hemoglobin 14.1 g/dl (14.0-18.0); Imm Gran Abs Auto 0.01 X10*3/uL (0.00-0.03); Imm Gran Pct Auto 0.2 % (0.0-0.4); Lymphocytes Absolute Auto 1.5 X10*3/uL (1.2-4.9); Lymphocytes Percent Auto 25.1 % (20-40); Mean Corpuscular HGB Conc 33.5 g/dl (31.0-36.0); Mean Corpuscular Hemoglobin 32.2 pg (27.0-33.0); Mean Corpuscular Volume 96.1 fL (80.0-98.0); Monocytes Absolute Auto 0.7 X10*3/uL (0.1-1.2); Monocytes Percent Auto 11.4 % (2-11); Neutrophils Absolute Auto 3.6 x10*3/uL (2.0-8.3); Neutrophils Percent Auto 61.1 % (45-73); Platelet Count 227 X10*3/uL (160-400); Red Blood Count 4.38 X10*6/uL (4.60-5.80); Red Cell Distribution Width 13.6 % (11.0-16.0); White Blood Count 5.9 X10*3/uL (4.8-10.8)
[2023-02-05 08:40] LABS: Alanine Aminotransferase 19 U/L (0-40); Albumin Level 4.3 g/dL (3.5-5.0); Alkaline Phosphatase 44 U/L (39-117); Anion Gap 10 (12-20); Aspartate Amino Transferase 21 U/L (5-37); Bilirubin Total 0.9 mg/dL (0.0-1.0); Blood Urea Nitrogen 24 mg/dL (9-16); Calcium 9.8 mg/dL (8.4-10.2); Carbon Dioxide 29 mmol/L (22-29); Chloride 107 mmol/L (96-108); Cholesterol 171 mg/dL (<200); Estimated Glomerular Filt Rate > 60; Glucose Fasting 115 mg/dL (60-99); HDL Cholesterol 45 mg/dL (>40); LDL Cholesterol Calculated 91 mg/dL (<100); Potassium 4.6 mmol/L (3.3-5.1); Sodium 141 mmol/L (135-145); Total Protein 7.2 g/dL (6.5-8.0); Triglycerides 176 mg/dL (<150)
[2023-02-05 10:58] LABS: Creatinine Urine 177.75 mg/dL; Microalbum/Creatinine Ratio Ur 2.8 ug/mg cr (<30)
== END 2023-02-05 06:45 | disposition home or self-care (01) ==
LOC: HO.LAB 06:44
PROVIDERS: PCP Internal Medicine Medical Oncology; Visit Provider Internal Medicine Medical Oncology
DX: E11.9 Type 2 diabetes mellitus without complications (principal); E78.01 Familial hypercholesterolemia; I10 Essential (primary) hypertension; N40.0 Benign prostatic hyperplasia without lower urinary tract symptoms
CPT/HCPCS: 36415; 80053; 80061; 82043; 82570; 83036; 85025

== ENCOUNTER 2023-04-01 06:39 | Outpatient (REF) | payer MEDICARE, SELFPAY ==
[2023-04-01 06:49] LABS: MANUAL DIFF FLAG NO
[2023-04-01 07:03] LABS: Basophils Percent Auto 0.5 % (0-2); Eosinophils Absolute Auto 0.1 X10*3/uL (0.0-0.4); Eosinophils Percent Auto 2.1 % (0-4); Hematocrit 40.8 % (42.0-52.0); Hemoglobin 13.5 g/dl (14.0-18.0); Imm Gran Abs Auto 0.02 X10*3/uL (0.00-0.03); Imm Gran Pct Auto 0.3 % (0.0-0.4); Lymphocytes Absolute Auto 2.2 X10*3/uL (1.2-4.9); Lymphocytes Percent Auto 35.9 % (20-40); Mean Corpuscular HGB Conc 33.1 g/dl (31.0-36.0); Mean Corpuscular Volume 96.7 fL (80.0-98.0); Mean Platelet Volume 9.6 fL (9.4-12.4); Monocytes Absolute Auto 0.7 X10*3/uL (0.1-1.2); Neutrophils Percent Auto 50.2 % (45-73); Platelet Count 206 X10*3/uL (160-400); Red Blood Count 4.22 X10*6/uL (4.60-5.80); Red Cell Distribution Width 13.4 % (11.0-16.0); White Blood Count 6.1 X10*3/uL (4.8-10.8)
[2023-04-01 07:18] LABS: Alanine Aminotransferase 20 U/L (0-40); Albumin Level 4.2 g/dL (3.5-5.0); Alkaline Phosphatase 50 U/L (39-117); Anion Gap 14 (12-20); Aspartate Amino Transferase 20 U/L (5-37); Bilirubin Total 0.5 mg/dL (0.0-1.0); Blood Urea Nitrogen 17 mg/dL (9-16); Calcium 9.6 mg/dL (8.4-10.2); Carbon Dioxide 26 mmol/L (22-29); Chloride 107 mmol/L (96-108); Cholesterol 172 mg/dL (<200); Estimated Glomerular Filt Rate > 60; Glucose Random 117 mg/dL (60-115); HDL Cholesterol 49 mg/dL (>40); LDL Cholesterol Calculated 95 mg/dL (<100); Potassium 4.7 mmol/L (3.3-5.1); Sodium 142 mmol/L (135-145); Total Protein 7.3 g/dL (6.5-8.0); Triglycerides 142 mg/dL (<150)
[2023-04-01 07:29] LABS: Estimated Average Glucose 97 mg/dL
== END 2023-04-01 06:40 | disposition home or self-care (01) ==
LOC: HO.LAB 06:39
PROVIDERS: PCP Internal Medicine Medical Oncology; Visit Provider Internal Medicine Medical Oncology
DX: E11.9 Type 2 diabetes mellitus without complications (principal); I10 Essential (primary) hypertension; E78.01 Familial hypercholesterolemia
CPT/HCPCS: 36415; 80053; 80061; 83036; 85025

== ENCOUNTER 2023-08-03 10:42 | Outpatient (AMB) | payer MEDICARE, SELFPAY ==
--- NOTE | 2023-08-03 10:44 | MHC.OFFVIS ---
Intake Vital Signs 08/03/23 10:45 Height 5 ft 9 in Weight 227 lb BMI 33.5 Intake Visit Reasons: New prob- left shoulder s/p falling 10/2022 Intake Note: Ivan is a 68 right hand dominant male who presents today for a new problem visit with complaints of left shoulder pain. Patient reports that he took a fall while at [facility] in December. He reports that he reported to the ED after the fall where he was given a sling and discharged. Since this fall he has had increased pain with certain acitivities like over the head movements like putting on a shirt. Denies numbness and tingling. He is interested in a possible injection Allergies No Known Allergies [NKA] Allergy (Verified 09/26/21 08:50) HPI New prob- left shoulder s/p falling 10/2022 HPI Details Ivan is a 68 year old Diabetic man who presents with complains of left shoulder pain, after a fall in 12/2022. He complains of pain primarily with overhead activities, such as putting on a T-shirt. He would like to request an injection. He denies any numbness or tingling. 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 Review of Systems Const All systems reviewed & are unremarkable except as noted in HPI and below Physical Exam Vital Signs: BMI result Body Mass Index 33.5 Const General: no acute distress, alert and awake Orientation/consciousness: patient oriented x3 HEENT Head: Yes normocephalic and Yes atraumatic Eyes General: appearance normal, both eyes and all related structures Alignment and Position: alignment normal Conjunctivae: conjunctivae normal EOM: EOMs intact bilaterally Neck Neck: Yes normal visual inspection and Yes trachea midline Resp Other: No rerpiratory distress Effort & Inspection: normal respiratory effort and able to speak in complete sentences Cardio Other: Palpable radial pulse with no appreciable rythmic abnormalities Jugular venous distension: no JVD GI Other: No abdominal distension Back/Spine/Pelvis Cervical Spine: normal cervical lordosis and cervical ROM normal Skin General skin exam: turgor normal Rashes: no rashes Neuro General: patient oriented x3 Extrem Other: Left shoulder with active abduction to 90 degrees with pain. Positive Man and Neer Tenderness to palpation bicipital groove Negative lift-off 35/90/120/S1 Psych Appearance: grossly normal Affect: normal affect Attitude: cooperative Office Procedures Joint Injection/Drain Joint Injection/Drain Details: Injected 1 mL of Decadron and 3 mL 1% lidocaine and 3 mL of 0.25% Marcaine. Site was prepped using aseptic technique. Patient tolerated the procedure well. Primary Site: left shoulder Approach Used: posterolateral Coding - Large joint Procedure code (CPT) selection complete Assessment & Plan Assessment & Plan (1) Internal derangement of left shoulder: Code(s): M24.812 - Other specific joint derangements of left shoulder, not elsewhere classified Plan: Left shoulder likely internal derangement. We discussed therapy but he would like to see how the injection does 1st. He will contact me if he feels he is not improved. Plan Prepared for Howie Rico MD by Emmanuel Mccrary, mobile paramedical examiner, on 08/03/23 at 10:48 AM, EST. Coding Level of Care Code Est Pt Level 3 (92973) Diagnoses Internal derangement of left shoulder M24.812 CPT Codes Coding - Large joint: 58856 - Large joint ([id number])
[2023-08-03 10:45] VITALS: BMI 33.5
== END 2023-08-03 11:32 | disposition home or self-care (01) ==
PROVIDERS: PCP Internal Medicine Medical Oncology; Visit Provider Orthopaedic Surgery
DX: M24.812 Other specific joint derangements of left shoulder, not elsewhere classified (principal)
CPT/HCPCS: 20610; 99213

== ENCOUNTER → 2023-08-03 10:42 | Outpatient (BNVA) | payer MEDICARE, SELFPAY | PROVIDERS: PCP Internal Medicine Medical Oncology; Visit Provider Orthopaedic Surgery | DX: M24.812 Other specific joint derangements of left shoulder, not elsewhere classified (principal) | CPT/HCPCS: 20610; 99212; J0665; J1100 ==

== ENCOUNTER 2023-08-05 06:37 | Outpatient (REF) | payer MEDICARE, SELFPAY ==
[2023-08-05 06:53] LABS: MANUAL DIFF FLAG NO
[2023-08-05 07:45] LABS: Basophils Percent Auto 0.7 % (0-2); Eosinophils Absolute Auto 0.1 X10*3/uL (0.0-0.4); Eosinophils Percent Auto 1.5 % (0-4); Hematocrit 39.8 % (42.0-52.0); Hemoglobin 13.2 g/dl (14.0-18.0); Imm Gran Abs Auto 0.02 X10*3/uL (0.00-0.03); Imm Gran Pct Auto 0.4 % (0.0-0.4); Lymphocytes Absolute Auto 2.3 X10*3/uL (1.2-4.9); Lymphocytes Percent Auto 42.7 % (20-40); Mean Corpuscular HGB Conc 33.2 g/dl (31.0-36.0); Mean Corpuscular Hemoglobin 32.3 pg (27.0-33.0); Mean Corpuscular Volume 97.3 fL (80.0-98.0); Mean Platelet Volume 10.1 fL (9.4-12.4); Monocytes Absolute Auto 0.6 X10*3/uL (0.1-1.2); Monocytes Percent Auto 10.6 % (2-11); Neutrophils Absolute Auto 2.4 x10*3/uL (2.0-8.3); Neutrophils Percent Auto 44.1 % (45-73); Platelet Count 213 X10*3/uL (160-400); Red Blood Count 4.09 X10*6/uL (4.60-5.80); Red Cell Distribution Width 13.7 % (11.0-16.0); White Blood Count 5.4 X10*3/uL (4.8-10.8)
[2023-08-05 07:56] LABS: Estimated Average Glucose 103 mg/dL; Hemoglobin A1C 111.2118 umol/L; Hemoglobin A1c % 5.2 % (<6.0)
[2023-08-05 08:23] LABS: Creatinine Urine 127.71 mg/dL; Microalbum/Creatinine Ratio Ur 5.4 ug/mg cr (<30)
[2023-08-05 08:26] LABS: Alanine Aminotransferase 19 U/L (0-40); Albumin Level 4.2 g/dL (3.5-5.0); Alkaline Phosphatase 45 U/L (39-117); Anion Gap 11 (12-20); Aspartate Amino Transferase 20 U/L (5-37); Bilirubin Total 0.8 mg/dL (0.0-1.0); Blood Urea Nitrogen 23 mg/dL (9-16); Calcium 9.4 mg/dL (8.4-10.2); Carbon Dioxide 29 mmol/L (22-29); Chloride 105 mmol/L (96-108); Cholesterol 187 mg/dL (<200); Estimated Glomerular Filt Rate > 60; Glucose Fasting 112 mg/dL (60-99); HDL Cholesterol 49 mg/dL (>40); LDL Cholesterol Calculated 103 mg/dL (<100); Potassium 4.5 mmol/L (3.3-5.1); Sodium 140 mmol/L (135-145); Total Protein 7.3 g/dL (6.5-8.0); Triglycerides 175 mg/dL (<150)
== END 2023-08-05 06:38 | disposition home or self-care (01) ==
LOC: HO.LAB 06:37
PROVIDERS: PCP Internal Medicine Medical Oncology; Visit Provider Internal Medicine Medical Oncology
DX: Z00.00 Encounter for general adult medical examination without abnormal findings (principal); E11.9 Type 2 diabetes mellitus without complications; E66.9 Obesity, unspecified; E78.01 Familial hypercholesterolemia
CPT/HCPCS: 36415; 80053; 80061; 82043; 82570; 83036; 85025

== ENCOUNTER 2023-11-25 06:38 | Outpatient (REF) | payer MEDICARE, SELFPAY ==
[2023-11-25 06:51] LABS: MANUAL DIFF FLAG NO
[2023-11-25 07:21] LABS: Basophils Percent Auto 0.6 % (0-2); Eosinophils Absolute Auto 0.1 X10*3/uL (0.0-0.4); Eosinophils Percent Auto 1.7 % (0-4); Hematocrit 40.9 % (42.0-52.0); Hemoglobin 13.8 g/dl (14.0-18.0); Imm Gran Abs Auto 0.02 X10*3/uL (0.00-0.03); Imm Gran Pct Auto 0.3 % (0.0-0.4); Lymphocytes Absolute Auto 1.6 X10*3/uL (1.2-4.9); Lymphocytes Percent Auto 24.8 % (20-40); Mean Corpuscular HGB Conc 33.7 g/dl (31.0-36.0); Mean Corpuscular Hemoglobin 32.5 pg (27.0-33.0); Mean Corpuscular Volume 96.5 fL (80.0-98.0); Mean Platelet Volume 10.2 fL (9.4-12.4); Monocytes Absolute Auto 0.7 X10*3/uL (0.1-1.2); Monocytes Percent Auto 10.5 % (2-11); Neutrophils Absolute Auto 4.1 x10*3/uL (2.0-8.3); Neutrophils Percent Auto 62.1 % (45-73); Platelet Count 194 X10*3/uL (160-400); Red Blood Count 4.24 X10*6/uL (4.60-5.80); White Blood Count 6.6 X10*3/uL (4.8-10.8)
[2023-11-25 07:31] LABS: Estimated Average Glucose 108 mg/dL; Hemoglobin A1c % 5.4 % (<6.0)
[2023-11-25 07:51] LABS: Alanine Aminotransferase 22 U/L (0-40); Albumin Level 4.2 g/dL (3.5-5.0); Alkaline Phosphatase 48 U/L (39-117); Anion Gap 14 (12-20); Aspartate Amino Transferase 17 U/L (5-37); Bilirubin Total 0.7 mg/dL (0.0-1.0); Blood Urea Nitrogen 21 mg/dL (9-16); Calcium 9.9 mg/dL (8.4-10.2); Carbon Dioxide 28 mmol/L (22-29); Chloride 104 mmol/L (96-108); Cholesterol 181 mg/dL (<200); Estimated Glomerular Filt Rate > 60; Glucose Random 122 mg/dL (60-115); HDL Cholesterol 47 mg/dL (>40); LDL Cholesterol Calculated 94 mg/dL (<100); Potassium 4.8 mmol/L (3.3-5.1); Sodium 141 mmol/L (135-145); Total Protein 7.2 g/dL (6.5-8.0); Triglycerides 201 mg/dL (<150)
== END 2023-11-25 06:39 | disposition home or self-care (01) ==
LOC: HO.LAB 06:38
PROVIDERS: PCP Internal Medicine Medical Oncology; Visit Provider Internal Medicine Medical Oncology
DX: E11.9 Type 2 diabetes mellitus without complications (principal); I10 Essential (primary) hypertension; E66.9 Obesity, unspecified
CPT/HCPCS: 36415; 80053; 80061; 83036; 85025

== ENCOUNTER 2024-04-04 06:31 | Outpatient (REF) | payer MEDICARE, SELFPAY ==
[2024-04-04 06:49] LABS: MANUAL DIFF FLAG NO
[2024-04-04 07:40] LABS: Basophils Percent Auto 0.5 % (0-2); Eosinophils Absolute Auto 0.1 X10*3/uL (0.0-0.4); Eosinophils Percent Auto 2.1 % (0-4); Hemoglobin 13.4 g/dl (14.0-18.0); Imm Gran Abs Auto 0.02 X10*3/uL (0.00-0.03); Imm Gran Pct Auto 0.4 % (0.0-0.4); Lymphocytes Absolute Auto 1.8 X10*3/uL (1.2-4.9); Lymphocytes Percent Auto 31.9 % (20-40); Mean Corpuscular HGB Conc 33.5 g/dl (31.0-36.0); Mean Corpuscular Hemoglobin 32.4 pg (27.0-33.0); Mean Corpuscular Volume 96.6 fL (80.0-98.0); Mean Platelet Volume 9.7 fL (9.4-12.4); Monocytes Absolute Auto 0.6 X10*3/uL (0.1-1.2); Monocytes Percent Auto 11.3 % (2-11); Neutrophils Percent Auto 53.8 % (45-73); Platelet Count 244 X10*3/uL (160-400); Red Blood Count 4.14 X10*6/uL (4.60-5.80); Red Cell Distribution Width 13.9 % (11.0-16.0); White Blood Count 5.6 X10*3/uL (4.8-10.8)
[2024-04-04 08:03] LABS: Estimated Average Glucose 103 mg/dL; Hemoglobin A1C 117.7463 umol/L; Hemoglobin A1c % 5.2 % (<6.0); Total Hemoglobin (HGBA1C) 3592.1193 umol/L
[2024-04-04 08:42] LABS: Creatinine Urine 143.78 mg/dL; Microalbum/Creatinine Ratio Ur 15.9 ug/mg cr (<30)
[2024-04-04 08:45] LABS: Alanine Aminotransferase 31 U/L (0-40); Albumin Level 4.1 g/dL (3.5-5.0); Alkaline Phosphatase 66 U/L (39-117); Anion Gap 15 (12-20); Aspartate Amino Transferase 29 U/L (5-37); Bilirubin Total 0.5 mg/dL (0.0-1.0); Blood Urea Nitrogen 16 mg/dL (9-16); Calcium 9.6 mg/dL (8.4-10.2); Carbon Dioxide 26 mmol/L (22-29); Chloride 106 mmol/L (96-108); Cholesterol 150 mg/dL (<200); Estimated Glomerular Filt Rate > 60; Glucose Fasting 115 mg/dL (60-99); HDL Cholesterol 42 mg/dL (>40); LDL Cholesterol Calculated 70 mg/dL (<100); Potassium 5.2 mmol/L (3.3-5.1); Sodium 142 mmol/L (135-145); Total Protein 7.4 g/dL (6.5-8.0); Triglycerides 190 mg/dL (<150)
[2024-04-04 08:52] LABS: Prostate Specific Antigen 1.17 ng/mL (<0.05-4.0)
== END 2024-04-04 06:32 | disposition home or self-care (01) ==
LOC: HO.LAB 06:31
PROVIDERS: PCP Internal Medicine Medical Oncology; Visit Provider Internal Medicine Medical Oncology
DX: E11.9 Type 2 diabetes mellitus without complications (principal); E66.9 Obesity, unspecified; N40.0 Benign prostatic hyperplasia without lower urinary tract symptoms; E78.01 Familial hypercholesterolemia; Z12.5 Encounter for screening for malignant neoplasm of prostate
CPT/HCPCS: 36415; 80053; 80061; 82043; 82570; 83036; 84153; 85025

== ENCOUNTER 2024-06-08 15:57 | Outpatient (REF) | payer MEDICARE, SELFPAY ==
--- NOTE | ~2024-06-08 | XR_ITS ---
CLINICAL HISTORY: LEFT SCIATICA PAIN 5 views lumbar spine Comparison: None Findings: Normal alignment. No acute fractures or dislocation. Multilevel degenerative disc disease, most pronounced at L4-L5. Facet osteoarthritis at L4-L5 and L5-S1. IMPRESSION: No acute findings. This document has been electronically signed by: Bernice Devlin MD on 06/08/2024 16:37:27
--- NOTE | ~2024-06-08 | XR_ITS ---
CLINICAL HISTORY: LEFT SCIATICA PAIN 3 views sacrum and coccyx Comparison: None Findings No acute fractures. No significant degenerative change of the sacroiliac joints. No erosions. IMPRESSION: No acute findings This document has been electronically signed by: Bernice Devlin MD on 06/08/2024 16:37:40
--- OUTSIDE RECORDS SUMMARY | 2024-06-08 15:59 | XMS_ITS ---
Author Organization Damon Alexander III, MD Address [address] [place] [place] [address] Care Team Providers Care Poultry Husbandry Worker Name Role Phone Damon Alexander Primary Care Provider REASON FOR VISIT Message Social History Sex Assigned At : Social History Observation Description Sex Assigned At Male Encounters Encounter Location Date Provider Diagnosis Damon Alexander III, MD [address] [place] [address] [place] [address] 05/17/2024 Damon Alexander Plan Of Treatment Next Appt Details Provider Name:Damon Alexander, 06/15/2024 02:45:00 PM, [address] [place] [address] [place], [phone], Provider Name:Damon Alexander, 04/14/2025 09:30:00 AM, [address] [place] [address] [place], [address], Progress Notes * James PROOB:[birth year] (68 yo M)Acc No.[id number]:05/17/2024 Patient:?Ivan PRO :1955???Age:68 Y???Sex:Male Address[address] [place] [address] * true * Date:? Generated for Sridevi chiang/Mick/Robitting on:?06/08/2024 03:59 PM EST
--- OUTSIDE RECORDS SUMMARY | 2024-06-08 15:59 | XMS_ITS ---
Author Organization Damon Alexander III, MD Address [address] [place] [address] Care Team Providers Care Laboratory Tech Name Role Phone Damon Alexander Primary Care Provider [phone] REASON FOR VISIT follow up Social History Sex Assigned At : Social History Observation Description Sex Assigned At Male Encounters Encounter Location Date Provider Diagnosis Damon Alexander III, MD [address] [place] [address] [place] [address] 05/10/2024 Damon Alexander Plan Of Treatment Next Appt Details Provider Name:Damon Alexander, 06/15/2024 02:45:00 PM, [address] [place] [address] [place], [address], Provider Name:Damon Alexander, 04/14/2025 09:30:00 AM, [address] [place] [address] [place], [address], Progress Notes * James PROOB:[birth year] (69 yo M)Acc No.[id number]:05/10/2024 Progress Notes Patient:?Iavn PRO Provider:?Damon Alexander MD :1955???Age:68 Y???Sex:Male Arun e:05/10/2024 Address:[address] [id number] Subjective: * Chief Complaints: * ???1. Follow up. * Medical History:? Objective: * Vitals:? Assessment: Plan: * Treatment: * Images: * The named appointment provid er may or may not be the originator of this progress note, and it is not deemed complete until electronically signed by the appointment provider. Sign off status: Pending * Provider:?Damon Alexander MD Date:?05/01 Generated for Sridevi chiang/Mick/eTransmitting on:?06/08/2024 03:59 PM EST
--- OUTSIDE RECORDS SUMMARY | 2024-06-08 16:00 | XMS_ITS | Patient Health Record ---
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 Name Role Phone Damon Alexander Primary Care Provider Allergies Allergen (clinical drug ingredient) Drug/Non Drug Allergy documented on EMR Reaction Allergy Type Onset Date Status No Known Drug Allergy Unknown Drug Allergy Active Results Component Value Reference Range Notes URINE DIP STICK Reviewed date:04/11/2024 01:27:53 PM Interpretation: Performing Lab: Notes/Report: SG 1.000 1.005 - 1.025 pH 5.0 5.0 - 9.0 DAVE 70+ Negative - NIT neg Negative - PRO neg Negative - Trace GLU neg Negative - KET neg Negative - UBG 0.2 0.1 - 1.8 LOIDA neg 0.2 - 1.3 BLD neg Negative - Menstrating N/A Complete Blood Count Auto Di ff Reviewed date:08/06/2023 10:02:18 AM Interpretation: Performing Lab:[facility], [address] [place] [address] Notes/Report: White Blood Count 5.4 4.8-10.8 X10*3/uL Red Blood Count 4.09 4.60-5.80 X10*6/uL Hemoglobin 13.2 14.0-18.0 g/dl Hematocrit 39.8 42.0-52.0 % Mean Corpuscular Volume 97.3 80.0-98.0 fL Mean Corpuscular Hemoglobin 32.3 27.0-33.0 pg Mean Corpuscular HGB Conc 33.2 31.0-36.0 g/dl Red Cell Distribution Width 13.7 11.0-16.0 % Platelet Count 213 160-400 X10*3/uL Mean Platelet Volume 10.1 9.4-12.4 fL Neutrophils Percent Auto 44.1 45-73 % Imm Gran Pct Auto 0.4 0.0-0.4 % Lymphocytes Percent Auto 42.7 20-40 % Monocytes Percent Auto 10.6 2-11 % Eosinophils Percent Auto 1.5 0-4 % Basophils Percent Auto 0.7 0-2 % NRBC Pct Auto 0.0 0.0-0.2 /100WBC Neutrophils Absolute Auto 2.4 2.0-8.3 x10*3/u L Imm Gran Abs Auto 0.02 0.00-0.03 X10*3/uL Lymphocytes Absolute Auto 2.3 1.2-4.9 X10*3/u L Monocytes Absolute Auto 0.6 0.1-1.2 X10*3/uL Eosinophils Absolute Auto 0.1 0.0-0.4 X10*3/u L Basophils Absolute Auto 0.0 0.0-0.2 X10*3/uL NRBC Abs Auto 0.000 0.0-0.012 X10*3/uL Comprehensive [place]. Panel Fa st Reviewed date:08/06/2023 10:02:18 AM Interpretation: Performing Lab:[facility], [address] [place] [phone] Notes/Report: Sodium 140 135-145 mmol/L Potassium 4.5 3.3-5.1 mmol/L Chloride 105 96-108 mmol/L Carbon Dioxide 29 22-29 mmol/L Anion Gap 11 12-20 Blood Urea Nitrogen 23 9-16 mg/dL Creatinine 1.03 0.5-1.4 mg/dL Estimated Glomerular Filt Rate > 60 NOTE: For -[place] individuals, multiply the result by 1.210. Chronic Kidney Disease: Estimated GFR < 60 mL/min/1.73m2 Severe Kidney Disease: Estimated GFR < 15 mL/min/1.73m2 Glucose Fasting 112 60-99 mg/dL A fasting glucose from 100-125 mg/dl is considered impaired (pre-diabetes). Calcium 9.4 8.4-10.2 mg/dL Bilirubin Total 0.8 0.0-1.0 mg/dL Aspartate Amino Transferase 20 5-37 U/L Alanine Aminotransferase 19 0-40 U/L Total Protein 7.3 6.5-8.0 g/dL Albumin Level 4.2 3.5-5.0 g/dL Alkaline Phosphatase 45 39-117 U/L Lipid Panel Reviewed date:08/06/2023 10:02:18 AM Interpretation: Performing Lab:[address] [phone] Notes/Report: Triglycerides 175 <150 mg/dL Desirable Triglyceride: less than 150 mg/dL Borderline High Triglyceride 150-199 mg/dL High Triglyceride: 200-499 mg/dL Very High Triglyceride: greater than or equal to 5OO mg/dL Cholesterol 187 <200 mg/dL Desirable Cholesterol: less than 200 mg/dL Borderline High Cholesterol: 200-239 mg/dL High Cholesterol: greater than 239 mg/dL LDL Cholesterol Calculated 103 <100 mg/dL Desirable LDL: less than 100 mg/dL Near Optimal/Above Optimal LDL: 110-129 mg/dL Borderline High LDL: 130-159 mg/dL High LDL: 160-189 mg/dL Very High LDL: greater than or equal to 190 mg/dL HDL Cholesterol 49 >40 mg/dL Desirable HDL: greater than 40 mg/dL Note: This HDL assay may give artificially low results in patients with liver disease. Microalbumin, Random Reviewed date:08/06/2023 10:02:18 AM Interpretation: Performing Lab:[facility], [address] [place] [phone] Notes/Report: Creatinine Urine 127.71 Microalbumin Urine 7.0 Microalbum/Creatinine Ratio Ur 5.4 <30 ug/mg cr Albumin/Creatinine Ratio Reference Ranges: Normal: < 30 ug/mg creatinine Microalbuminuria: 30 - 300 ug/mg creatinine Clinical Albuminuria: > 300 ug/mg creatinine Hemoglobin A1c Reviewed date:08/06/2023 10:02:18 AM Interpretation: Performing Lab:[address] [address] Notes/Report: Hemoglobin A1c % 5.2 <6.0 % Hemoglobin A1C Reference Range Adults: 4.8 - 6.0 % Non diabetic: < 6.0 % Goal: < 7.0 % Additional Action Suggested: > 8.0 % Note: Hemoglobin A1c results are invalid for patients with abnormal amounts of HbF. Blood transfusions may impact the HbA1c concentration in the patient sample. Estimated Average Glucose 103 eAG = Estimated average glucose which is %A1C expressed as average glucose, using the formula of the [id number] Average Glucose study (ADAG), Diabetes Care, Vol.31,#8, 2007 Complete Blood Count Auto Di ff Reviewed date:11/30/2023 04:41:12 PM Interpretation: Performing Lab:[facility], [address] [place] [phone] Notes/Report: White Blood Count 6.6 4.8-10.8 X10*3/uL Red Blood Count 4.24 4.60-5.80 X10*6/uL Hemoglobin 13.8 14.0-18.0 g/dl Hematocrit 40.9 42.0-52.0 % Mean Corpuscular Volume 96.5 80.0-98.0 fL Mean Corpuscular Hemoglobin 32.5 27.0-33.0 pg Mean Corpuscular HGB Conc 33.7 31.0-36.0 g/dl Red Cell Distribution Width 14.0 11.0-16.0 % Platelet Count 194 160-400 X10*3/uL Mean Platelet Volume 10.2 9.4-12.4 fL Neutrophils Percent Auto 62.1 45-73 % Imm Gran Pct Auto 0.3 0.0-0.4 % Lymphocytes Percent Auto 24.8 20-40 % Monocytes Percent Auto 10.5 2-11 % Eosinophils Percent Auto 1.7 0-4 % Basophils Percent Auto 0.6 0-2 % NRBC Pct Auto 0.0 0.0-0.2 /100WBC Neutrophils Absolute Auto 4.1 2.0-8.3 x10*3/u L Imm Gran Abs Auto 0.02 0.00-0.03 X10*3/uL Lymphocytes Absolute Auto 1.6 1.2-4.9 X10*3/u L Monocytes Absolute Auto 0.7 0.1-1.2 X10*3/uL Eosinophils Absolute Auto 0.1 0.0-0.4 X10*3/u L Basophils Absolute Auto 0.0 0.0-0.2 X10*3/uL NRBC Abs Auto 0.000 0.0-0.012 X10*3/uL Comprehensive Met. Panel Reviewed date:11/30/2023 04:41:12 PM Interpretation: Performing Lab:[facility], [address] [place] [phone] Notes/Report: Sodium 141 135-145 mmol/L Potassium 4.8 3.3-5.1 mmol/L Chloride 104 96-108 mmol/L Carbon Dioxide 28 22-29 mmol/L Anion Gap 14 12-20 Blood Urea Nitrogen 21 9-16 mg/dL Creatinine 1.16 0.5-1.4 mg/dL Estimated Glomerular Filt Rate > 60 NOTE: For -[place] individuals, multiply the result by 1.210. Chronic Kidney Disease: Estimated GFR < 60 mL/min/1.73m2 Severe Kidney Disease: Estimated GFR < 15 mL/min/1.73m2 Glucose Random 122 60-115 mg/dL Calcium 9.9 8.4-10.2 mg/dL Bilirubin Total 0.7 0.0-1.0 mg/dL Aspartate Amino Transferase 17 5-37 U/L Alanine Aminotransferase 22 0-40 U/L Total Protein 7.2 6.5-8.0 g/dL Albumin Level 4.2 3.5-5.0 g/dL Alkaline Phosphatase 48 39-117 U/L Lipid Panel Reviewed date:11/30/2023 04:41:12 PM Interpretation: Performing Lab:[facility], [address] [place] [phone] Notes/Report: Triglycerides 201 <150 mg/dL Desirable Triglyceride: less than 150 mg/dL Borderline High Triglyceride 150-199 mg/dL High Triglyceride: 200-499 mg/dL Very High Triglyceride: greater than or equal to 5OO mg/dL Cholesterol 181 <200 mg/dL Desirable Cholesterol: less than 200 mg/dL Borderline High Cholesterol: 200-239 mg/dL High Cholesterol: greater than 239 mg/dL LDL Cholesterol Calculated 94 <100 mg/dL Desirable LDL: less than 100 mg/dL Near Optimal/Above Optimal LDL: 110-129 mg/dL Borderline High LDL: 130-159 mg/dL High LDL: 160-189 mg/dL Very High LDL: greater than or equal to 190 mg/dL HDL Cholesterol 47 >40 mg/dL Desirable HDL: greater than 40 mg/dL Note: This HDL assay may give artificially low results in patients with liver disease. Hemoglobin A1c Reviewed date:11/30/2023 04:41:12 PM Interpretation: Performing Lab:[facility], [address] [place] [phone] Notes/Report: Hemoglobin A1c % 5.4 <6.0 % Hemoglobin A1C Reference Range Adults: 4.8 - 6.0 % Non diabetic: < 6.0 % Goal: < 7.0 % Additional Action Suggested: > 8.0 % Note: Hemoglobin A1c results are invalid for patients with abnormal amounts of HbF. Blood transfusions may impact the HbA1c concentration in the patient sample. Estimated Average Glucose 108 eAG = Estimated average glucose which is %A1C expressed as average glucose, using the formula of the [id number] Average Glucose study (ADAG), Diabetes Care, Vol.31,#8, Dec. 2007 Diabetic Eye Exam Reviewed date:05/09/2024 10:31:29 AM Interpretation:undefined Performing Lab: Notes/Report: undefined Complete Blood Count Auto Di ff Reviewed date:04/11/2024 09:48:47 AM Interpretation: Performing Lab:[facility], [address] [place] [phone] Notes/Report: White Blood Count 5.6 4.8-10.8 X10*3/uL Red Blood Count 4.14 4.60-5.80 X10*6/uL Hemoglobin 13.4 14.0-18.0 g/dl Hematocrit 40.0 42.0-52.0 % Mean Corpuscular Volume 96.6 80.0-98.0 fL Mean Corpuscular Hemoglobin 32.4 27.0-33.0 pg Mean Corpuscular HGB Conc 33.5 31.0-36.0 g/dl Red Cell Distribution Width 13.9 11.0-16.0 % Platelet Count 244 160-400 X10*3/uL Mean Platelet Volume 9.7 9.4-12.4 fL Neutrophils Percent Auto 53.8 45-73 % Imm Gran Pct Auto 0.4 0.0-0.4 % Lymphocytes Percent Auto 31.9 20-40 % Monocytes Percent Auto 11.3 2-11 % Eosinophils Percent Auto 2.1 0-4 % Basophils Percent Auto 0.5 0-2 % NRBC Pct Auto 0.0 0.0-0.2 /100WBC Neutrophils Absolute Auto 3.0 2.0-8.3 x10*3/u L Imm Gran Abs Auto 0.02 0.00-0.03 X10*3/uL Lymphocytes Absolute Auto 1.8 1.2-4.9 X10*3/u L Monocytes Absolute Auto 0.6 0.1-1.2 X10*3/uL Eosinophils Absolute Auto 0.1 0.0-0.4 X10*3/u L Basophils Absolute Auto 0.0 0.0-0.2 X10*3/uL NRBC Abs Auto 0.000 0.0-0.012 X10*3/uL Comprehensive [facility]. Panel Fa st Reviewed date:04/11/2024 09:48:47 AM Interpretation: Performing Lab:[address] [phone] Notes/Report: Sodium 142 135-145 mmol/L Potassium 5.2 3.3-5.1 mmol/L Chloride 106 96-108 mmol/L Carbon Dioxide 26 22-29 mmol/L Anion Gap 15 12-20 Blood Urea Nitrogen 16 9-16 mg/dL Creatinine 0.93 0.5-1.4 mg/dL Estimated Glomerular Filt Rate > 60 NOTE: For -[place] individuals, multiply the result by 1.210. Chronic Kidney Disease: Estimated GFR < 60 mL/min/1.73m2 Severe Kidney Disease: Estimated GFR < 15 mL/min/1.73m2 Glucose Fasting 115 60-99 mg/dL A fasting glucose from 100-125 mg/dl is considered impaired (pre-diabetes). Calcium 9.6 8.4-10.2 mg/dL Bilirubin Total 0.5 0.0-1.0 mg/dL Aspartate Amino Transferase 29 5-37 U/L Alanine Aminotransferase 31 0-40 U/L Total Protein 7.4 6.5-8.0 g/dL Albumin Level 4.1 3.5-5.0 g/dL Alkaline Phosphatase 66 39-117 U/L Lipid Panel Reviewed date:04/11/2024 09:48:47 AM Interpretation: Performing Lab:[facility], [address] [place] [phone] Notes/Report: Triglycerides 190 <150 mg/dL Desirable Triglyceride: less than 150 mg/dL Borderline High Triglyceride 150-199 mg/dL High Triglyceride: 200-499 mg/dL Very High Triglyceride: greater than or equal to 5OO mg/dL Cholesterol 150 <200 mg/dL Desirable Cholesterol: less than 200 mg/dL Borderline High Cholesterol: 200-239 mg/dL High Cholesterol: greater than 239 mg/dL LDL Cholesterol Calculated 70 <100 mg/dL Desirable LDL: less than 100 mg/dL Near Optimal/Above Optimal LDL: 110-129 mg/dL Borderline High LDL: 130-159 mg/dL High LDL: 160-189 mg/dL Very High LDL: greater than or equal to 190 mg/dL HDL Cholesterol 42 >40 mg/dL Desirable HDL: greater than 40 mg/dL Note: This HDL assay may give artificially low results in patients with liver disease. Prostate Specific Antigen Reviewed date:04/11/2024 09:48:47 AM Interpretation: Performing Lab:[facility], [address] [place] [phone] Notes/Report: Prostate Specific Antigen 1.17 <0.05-4.0 ng/mL PSA methodology: [employer] Alinity i Chemiluminescent Microparticle Immunoassay (CMIA) Microalbumin, Random Reviewed date:04/11/2024 09:48:47 AM Interpretation: Performing Lab:[facility], [address] [place] [phone] Notes/Report: Creatinine Urine 143.78 Microalbumin Urine 23.0 Microalbum/Creatinine Ratio Ur 15.9 <30 ug/mg cr Albumin/Creatinine Ratio Reference Ranges: Normal: < 30 ug/mg creatinine Microalbuminuria: 30 - 300 ug/mg creatinine Clinical Albuminuria: > 300 ug/mg creatinine Hemoglobin A1c Reviewed date:04/11/2024 09:48:47 AM Interpretation: Performing Lab:[facility], [address] [place] [phone] Notes/Report: Hemoglobin A1c % 5.2 <6.0 % Hemoglobin A1C Reference Range Adults: 4.8 - 6.0 % Non diabetic: < 6.0 % Goal: < 7.0 % Additional Action Suggested: > 8.0 % Note: Hemoglobin A1c results are invalid for patients with abnormal amounts of HbF. Blood transfusions may impact the HbA1c concentration in the patient sample. Estimated Average Glucose 103 eAG = Estimated average glucose which is %A1C expressed as average glucose, using the formula of the [id number] Average Glucose study (ADAG), Diabetes Care, Vol.31,#8, Dec. 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 Referral Priority Routine Medications Medication SIG (Take, Route, Frequency, Duration) Notes Start Date End Date Status OneTouch Test - as directed In Vitro Check blood glucose on Thursday, Thursday and Thursday Active Fish Oil 1000 MG 1 capsule with a yao l Orally Once a day Active Lisinopril 40 MG TAKE 1 TABLET BY NANCY TH EVERY DAY Active StreamTouch Ultra System w/Device Check blood glucose on Thursday, Thursday, and Thursday06/15/2023 Active StreamTouch Delica Lancing Dev Check blood glucose Thursday, Thursday and Thursday06/15/2023 Active OneTouch Delica Lancets 30G - as directed Test blood sugar Thursday, Thursday and thursday Active Lyrica 75 MG 1 capsule Orally twi ce a day Active dexAMETHasone 2 MG 1 tablet Orally ever y 12 hrs for 10 days 06/08/2024 Active metFORMIN HCl 500 MG TAKE 1 TABLET BY MO UTH EVERY DAY Active Ozempic (0.25 or 0.5 MG/DOSE) 2 MG/3ML 0.25 mg Subcutaneous weekly 12/02/2023 Active Simvastatin 40 MG TAKE 1 TABLET BY NANCY TH EVERYDAY AT BEDTIME Active Adult Aspirin EC Low Strength 81 MG 1 tablet Orally Once a day Active Immunizations Vaccine Route Administration Date Status Comme nts Pneumococcal Unknown 03/04/2014 Administered Influenza Unknown 01/26/2014 Administered Influenza IM Intramuscular 04/04/2015 Administered Influenza Unknown 02/27/2016 Administered Influenza IM Intramuscular 02/10/2017 Administered Influenza no Preserv 3 and > IM Intramuscular 02/11/2018 Administered Influenza no Preserv 3 and > IM Intramuscular 04/11/2019 Administered COVID- 19 Vaccine Unknown 06/10/2021 Administered Zostavax IM Intramuscular 01/03/2023 Administered This w as given to pt by [facility] pharmacy PCV20 Unknown 02/26/2023 Administered Tdap Unknown 12/22/2020 Administered COVID 19 Leesa Unknown 09/10/2020 Administered Influenza, quad Unknown 02/26/2023 Administered SHINGRIX Unknown 01/03/2023 Administered SHINGRIX Unknown 07/02/2023 Administered PPV 23 Unknown 03/04/2014 Administered Influenza, quad IM Intramuscular 04/19/2020 Pending Social History Tobacco Use: Social History Observation Description Date Details (start date - stop date) Never Smoker NA - NA Sex Assigned At : Social History Observation Description Sex Assigned At Male Tobacco Use/Smoking Question Answer Notes Patient is a nonsmoker Additional Findings: Tobacco Non-User Aggressive non-smoker Alcohol Screen Question Answer Notes Did you have a drink containing alcohol in the p ast year? No Points 0 Interpretation Negative Problems Problem Type SNOMED Code ICD Code Onset Dates Problem Status W/U Status Risk Notes Problem 384369438 Obesity (E66.9) Active confirmed His weight is stable. His body mass index is 33. We discussed diet and nutrition. We reviewed a diabetic weight loss diet. We made a plan to lose weight at a rate of one half of a pound per week. Problem [id number] Type 2 diabetes mellitus without complications (E11.9) Active confirmed He has been compliant with diet and therapy. His hemoglobin A1c was 5.2. His fasting glucose was 115. No change in his regimen was made. He was given an appointment to come to the office. Problem [id number] Tinea corporis (B35.4) Active confirmed The rash has resolved. Problem Benign prostatic hyperplasia (162469854) BPH (benign prostatic hyperplasia) (N40.0) Active confirmed He says he drinks fluids copiously after dinner and rises to her 3 times a night to urinate. We have addressed this issue by discussing lifestyle modification. Problem 71209208 Essential hypertension (I10) Active confirmed His blood pressure is currently stable. I have strongly recommended aggressive weight loss and sodium restriction. He will return to the office regularly for measurement of his vital signs. Problem 84179849 Diabetic polyneuropathy associated with type 2 diabetes mellitus (E11.42) Active confirmed He has mild sensory deficits in his lower extremities but is able to conduct all of the activities of daily living. Problem Pure hypercholesterolemi a (353491620) Hyperlipidemia type II (E78.01) Active confirmed His cholesterol values are in near target range. His triglycerides are slightly elevated. I strongly recommended a diet low in fat and calories and concentrated sweets. Vital Signs Heart Rate 60 /min 06/08/2024 Temperature 97.3 degrees Fahrenheit 06/08/2024 Blood pressure diastolic 75 mm Hg 06/08/2024 Height 69 in 06/08/2024 Blood pressure systolic 131 mm Hg 06/08/2024 Weight 223 lbs 06/08/2024 BMI 32.93 kg/m2 06/08/2024 Encounters Encounter Location Date Provider Diagnosis Damon Alexander III, MD [address] [place] [address] [place] [address] 06/08/2024 Damon Alexander Type 2 diabetes leonardo itus without complications E11.9 and Lumbar back pain M54.50 Damon Alexander III, MD [address] [place] [address] [place] [address] 08/12/2023 Damon Alexander Type 2 diabetes leonardo itus without complications E11.9 ; Essential hypertension I10 and Obesity E66.9 Damon Alexander III, MD [address] [place] [address] [place] [address] 12/02/2023 Damon Alexander Type 2 diabetes leonardo itus without complications E11.9 ; Obesity E66.9 ; BPH (benign prostatic hyperplasia) N40.0 and Hyperlipidemia type II E78.01 Damon Alexander III, MD [address] [place] [address] [place] [address] 12/07/2023 Damon Alexander Type 2 diabetes leonardo itus without complications E11.9 ; Obesity E66.9 ; Essential hypertension I10 and Acute midline low back pain without sciatica M54.50 Damon Alexander III, MD [address] [place] [address] [place] [address] 12/23/2023 Damon Alexander Type 2 diabetes leonardo itus without complications E11.9 ; Essential hypertension I10 ; Obesity E66.9 ; Diabetic polyneuropathy associated with type 2 diabetes mellitus E11.42 and Hyperlipidemia type II E78.01 Damon Alexander III, MD [address] [place] [address] [place] [address] 01/11/2024 Damon Alexander Type 2 diabetes leonardo itus without complications E11.9 ; Obesity E66.9 and Essential hypertension I10 Damon Alexander III, MD [address] [place] [address] [place] [address] 02/15/2024 Damon Alexander Type 2 diabetes leonardo itus without complications E11.9 ; Essential hypertension I10 ; Obesity E66.9 ; Diabetic polyneuropathy associated with type 2 diabetes mellitus E11.42 ; BPH (benign prostatic hyperplasia) N40.0 and Hyperlipidemia type II E78.01 Damon Alexander III, MD [address] [place] [address] [place] [address] 04/11/2024 Damon Alexander Type 2 diabetes leonardo itus without complications E11.9 ; Obesity E66.9 ; Essential hypertension I10 ; Hyperlipidemia type II E78.0 ; Tinea corporis B35.4 and BPH (benign prostatic hyperplasia) N40.0 Damon Alexander III, MD [address] [place] [address] [place] [address] 06/15/2023 Damon Alexander III, MD [address] [place] [address] [place] [address] 06/16/2023 Damon Alexander III, MD [address] [place] [address] [place] [address] 05/03/2024 Damon Alexander III, MD [address] [place] [address] [place] [address] 05/17/2024 Damon Alexander Assessments Encounter Date Diagnosis (ICD Code) Assessment Notes Treat ment Notes Treatment Clinical Notes 06/08/2024 Type 2 diabetes mellitus without complications (ICD-10 - E11.9) He has been compliant with diet and therapy. His hemoglobin A1c was 5.2. His fasting glucose was 115. No change in his regimen was made. He was given an appointment to come to the office. 08/12/2023 Type 2 diabetes mellitus without complications (ICD-10 - E11.9) He has been compliant with diet and therapy. His hemoglobin A1c is 5.2 No change in his regimen was made. I recommended weight loss. 08/12/2023 Essential hypertension (ICD-10 - I10) His blood pressure is currently stable. I have strongly recommended aggressive weight loss and sodium restriction. He will return to the office regularly for measurement of his vital signs. 12/02/2023 Obesity (ICD-10 - E66.9) He has gained 4 pounds. We discussed diet and nutrition. We reviewed a diabetic weight loss diet. We made a plan to lose weight at a rate of one half of a pound per week. 12/02/2023 Type 2 diabetes mellitus without complications (ICD-10 - E11.9) He has been compliant with diet and therapy. His hemoglobin A1c is 5.4 No change in his regimen was made. I recommended weight loss. 12/07/2023 Obesity (ICD-10 - E66.9) He has gained 4 pounds. We discussed diet and nutrition. We reviewed a diabetic weight loss diet. We made a plan to lose weight at a rate of one half of a pound per week. 12/07/2023 Type 2 diabetes mellitus without complications (ICD-10 - E11.9) He has been compliant with diet and therapy. His hemoglobin A1c is 5.4 No change in his regimen was made. I recommended weight loss. 12/23/2023 Type 2 diabetes mellitus without complications (ICD-10 - E11.9) He has been compliant with diet and therapy. His hemoglobin A1c is 5.4 No change in his regimen was made. I recommended weight loss. 12/23/2023 Essential hypertension (ICD-10 - I10) His blood pressure is currently stable. I have strongly recommended aggressive weight loss and sodium restriction. He will return to the office regularly for measurement of his vital signs. 01/11/2024 Obesity (ICD-10 - E66.9) He has gained 4 pounds. We discussed diet and nutrition. We reviewed a diabetic weight loss diet. We made a plan to lose weight at a rate of one half of a pound per week. 01/11/2024 Type 2 diabetes mellitus without complications (ICD-10 - E11.9) He has been compliant with diet and therapy. His hemoglobin A1c was 5.4 No change in his regimen was made. He was given an appointment to come to the office. 02/15/2024 Type 2 diabetes mellitus without complications (ICD-10 - E11.9) He has been compliant with diet and therapy. His hemoglobin A1c was 5.4 No change in his regimen was made. He was given an appointment to come to the office. 02/15/2024 Essential hypertension (ICD-10 - I10) His blood pressure is currently stable. I have strongly recommended aggressive weight loss and sodium restriction. He will return to the office regularly for measurement of his vital signs. 04/11/2024 Obesity (ICD-10 - E66.9) His weight is stable. His body mass index is 33. We discussed diet and nutrition. We reviewed a diabetic weight loss diet. We made a plan to lose weight at a rate of one half of a pound per week. 04/11/2024 Type 2 diabetes mellitus without complications (ICD-10 - E11.9) He has been compliant with diet and therapy. His hemoglobin A1c was 5.2. His fasting glucose was 115. No change in his regimen was made. He was given an appointment to come to the office. 06/08/2024 Lumbar back pain (ICD-10 - M54.50) 08/12/2023 Obesity (ICD-10 - E66.9) He has gained 8 pounds and his body mass index is 34.5. We discussed his diet and nutrition. We reviewed his weight loss strategy. We made a plan to lose weight at a rate of one half of a pound per week through regular physical activity and a diet restricted in flexion and sodium. 12/02/2023 BPH (benign prostati c hyperplasia) (ICD-10 - N40.0) He says he drinks fluids copiously after dinner and rises to her 3 times a night to urinate. We have addressed this issue by discussing lifestyle modification. 12/07/2023 Essential hypertension (ICD-10 - I10) His blood pressure is currently stable. I have strongly recommended aggressive weight loss and sodium restriction. He will return to the office regularly for measurement of his vital signs. 12/23/2023 Obesity (ICD-10 - E66.9) He has gained 4 pounds. We discussed diet and nutrition. We reviewed a diabetic weight loss diet. We made a plan to lose weight at a rate of one half of a pound per week. 01/11/2024 Essential hypertension (ICD-10 - I10) His blood pressure is currently stable. I have strongly recommended aggressive weight loss and sodium restriction. He will return to the office regularly for measurement of his vital signs. 02/15/2024 Obesity (ICD-10 - E66.9) He has lost 13 pounds. We discussed diet and nutrition. We reviewed a diabetic weight loss diet. We made a plan to lose weight at a rate of one half of a pound per week. 04/11/2024 Essential hypertension (ICD-10 - I10) His blood pressure is currently stable. I have strongly recommended aggressive weight loss and sodium restriction. He will return to the office regularly for measurement of his vital signs. 12/02/2023 Hyperlipidemia type II (ICD-10 - E78.01) His cholesterol values are in near target range. His triglycerides are slightly elevated. I strongly recommended a diet low in fat and calories and concentrated sweets. 12/07/2023 Acute midline low back pain without sciatica (ICD-10 - M54.50) Undergo conservative approach of the rest and ibuprofen 12/23/2023 Diabetic polyneuropathy associated with type 2 diabetes mellitus (ICD-10 - E11.42) He has mild sensory deficits in his lower extremities but is able to conduct all of the activities of daily living. 02/15/2024 Diabetic polyneuropathy associated with type 2 diabetes mellitus (ICD-10 - E11.42) He has mild sensory deficits in his lower extremities but is able to conduct all of the activities of daily living. 04/11/2024 Hyperlipidemia type II (ICD-10 - E78.0) His current fasting lipid profile shows good control of his lipids. I recommended a diet low in animal fat combined with aggressive weight loss. 12/23/2023 Hyperlipidemia type II (ICD-10 - E78.01) His cholesterol values are in near target range. His triglycerides are slightly elevated. I strongly recommended a diet low in fat and calories and concentrated sweets. 02/15/2024 BPH (benign prostati c hyperplasia) (ICD-10 - N40.0) He says he drinks fluids copiously after dinner and rises to her 3 times a night to urinate. We have addressed this issue by discussing lifestyle modification. 04/11/2024 Tinea corporis (ICD-10 - B35.4) The rash has resolved. 02/15/2024 Hyperlipidemia type II (ICD-10 - E78.01) His cholesterol values are in near target range. His triglycerides are slightly elevated. I strongly recommended a diet low in fat and calories and concentrated sweets. 04/11/2024 BPH (benign prostati c hyperplasia) (ICD-10 - N40.0) He says he drinks fluids copiously after dinner and rises to her 3 times a night to urinate. We have addressed this issue by discussing lifestyle modification. Plan Of Treatment Pending Test Test Name Order Date PROFILE, FASTING (COMPREHENSIVE METABOLI C) 02/07/2021 PROFILE, FASTING (COMPREHENSIVE METABOLI C) 10/25/2020 PROFILE, FASTING (COMPREHENSIVE METABOLI C) 10/02/2022 PROFILE, FASTING (COMPREHENSIVE METABOLI C) 04/02/2022 PROFILE, FASTING (COMPREHENSIVE METABOLI C) 07/19/2020 PROFILE, FASTING (COMPREHENSIVE METABOLI C) 12/02/2023 PROFILE, FASTING (COMPREHENSIVE METABOLI C) 01/09/2022 PROFILE, FASTING (COMPREHENSIVE METABOLI C) 08/08/2021 PROFILE, FASTING (COMPREHENSIVE METABOLI C) 04/08/2023 PROFILE, FASTING (COMPREHENSIVE METABOLI C) 04/11/2019 PROFILE, FASTING (COMPREHENSIVE METABOLI C) 01/26/2020 PROFILE, FASTING (COMPREHENSIVE METABOLI C) 08/11/2019 PROFILE, FASTING (COMPREHENSIVE METABOLI C) 05/09/2021 PROFILE, RANDOM (COMPREHENSIVE METABOLIC ) 02/12/2023 PROFILE, RANDOM (COMPREHENSIVE METABOLIC ) 06/18/2022 PROFILE, RANDOM (COMPREHENSIVE METABOLIC ) 04/19/2020 PROFILE, RANDOM (COMPREHENSIVE METABOLIC ) 08/12/2023 HEMOGLOBIN A1C (GLYCOHEMOGLOBIN) 020 HEMOGLOBIN A1C (GLYCOHEMOGLOBIN) 020 HEMOGLOBIN A1C (GLYCOHEMOGLOBIN) 021 HEMOGLOBIN A1C (GLYCOHEMOGLOBIN) 021 HEMOGLOBIN A1C (GLYCOHEMOGLOBIN) 023 HEMOGLOBIN A1C (GLYCOHEMOGLOBIN) 021 HEMOGLOBIN A1C (GLYCOHEMOGLOBIN) 023 HEMOGLOBIN A1C (GLYCOHEMOGLOBIN) 021 HEMOGLOBIN A1C (GLYCOHEMOGLOBIN) 023 HEMOGLOBIN A1C (GLYCOHEMOGLOBIN) 020 HEMOGLOBIN A1C (GLYCOHEMOGLOBIN) 022 HEMOGLOBIN A1C (GLYCOHEMOGLOBIN) 019 LIPID PANEL 04/11/2019 LIPID PANEL 01/26/2020 LIPID PANEL 08/11/2019 LIPID PANEL 02/12/2023 LIPID PANEL 10/25/2020 LIPID PANEL 10/02/2022 LIPID PANEL 07/19/2020 LIPID PANEL 06/18/2022 LIPID PANEL 01/09/2022 LIPID PANEL 04/19/2020 PSA, TOTAL 04/11/2019 PSA, TOTAL 04/02/2022 PSA, TOTAL 12/02/2023 MICROALBUMIN, RANDOM 08/08/2021 MICROALBUMIN, RANDOM 02/07/2021 MICROALBUMIN, RANDOM 08/11/2019 MICROALBUMIN, RANDOM 04/11/2019 MICROALBUMIN, RANDOM 10/25/2020 MICROALBUMIN, RANDOM 10/02/2022 CBC w DIFF 01/09/2022 CBC w DIFF 04/19/2020 CBC w DIFF 08/08/2021 CBC w DIFF 05/09/2021 CBC w DIFF 01/26/2020 CBC w DIFF 02/12/2023 CBC w DIFF 02/07/2021 CBC w DIFF 04/02/2022 CBC w DIFF 08/11/2019 CBC w DIFF 04/11/2019 CBC w DIFF 10/25/2020 CBC w DIFF 10/02/2022 CBC w DIFF 08/12/2023 CBC w DIFF 07/19/2020 CBC w DIFF 06/18/2022 CBC WITH AUTO DIFF 12/02/2023 CBC WITH AUTO DIFF 04/08/2023 Lipid Panel 12/02/2023 Lipid Panel 08/12/2023 Lipid Panel 04/08/2023 Lipid Panel 08/08/2021 Lipid Panel 05/09/2021 Lipid Panel 02/07/2021 Lipid Panel 04/02/2022 Vitamin D 25-OH Total 04/02/2022 Microalbumin, Random 12/02/2023 Microalbumin, Random 04/08/2023 XR lumbar spine 4V min 06/08/2024 XR sacrum coccyx min 2V 06/08/2024 Hemoglobin A1c 04/02/2022 Hemoglobin A1c 08/12/2023 Hemoglobin A1c 12/02/2023 Hemoglobin A1c 04/08/2023 Next Appt Details Provider Name:Damon Alexander, 06/15/2024 02:45:00 PM, [address] [place] [address] [place], [address], Provider Name:Damon Alexander, 04/14/2025 09:30:00 AM, [address] [place] [address] [address], [place], [address], Insurance Providers Payer Name Payer Address Payer Phone Subscriber Number Group Number Insured Name Patient Relationship to Insured Coverage Start Date Coverage End Date [employer] Medicare [address] [place] [phone] [id number] Ivan Haley Self - patient is the insured MEDICARE NGS [address] [place] [phone] [id number] Ivan Haley Self - patient is the insured Medical (General) History Medical History History ICD Code hypertension hyperlipidemia fracture right foot obesity adult-onset diabetes mellitus The patient has a history of colonoscopy, which is up to date. He also has a history of tingling in his feet and hearing loss in his right ear. Surgical History Surgery Date(Month/Year) No history Colonoscopy 07/2022 right knee surgery torn 07/2019 colonoscopy, tubular adenoma removed 06/02 018 colonoscopy 2010 neurogenic bladder after disc surgery 20 07 cataract removal - Dr. Dumont right ear surgery age 15 HNP [facility] - surgery 2006 Hospitalization History Reason Date(Month/Year) No history
--- OUTSIDE RECORDS SUMMARY | 2024-06-08 16:00 | XMS_ITS | Patient Health Record ---
Author Organization [facility] Address [address] [place] [address] Care Team Providers [employer] Consultant Name Role Phone Shon Alexander MD Primary Care Provider Shon Montejo Unavailable [phone] ALLERGIES No Known Allergies REASON FOR REFERRAL No Information MEDICATIONS Medication SIG (Take, Route, Fr equency, Duration) Notes Start Date End Date Status Lyrica 150 MG 1 capsule Orally Once a day Active Lisinopril 40 MG 1 tablet Orally Once a day Active Aspir-81 81 MG 1 tablet Orally Once a day Active metFORMIN HCl 500 MG 1 tablet with meals Orally Once a day Active Simvastatin 40 MG 1 tablet in the even ing Orally Once a day Active Fish Oil 1200 MG 1 capsule Orally Once a day Active IMMUNIZATIONS Vaccine Route Administration Date Status Comme nts Flu vaccine no Preserv 3 and > Unknown 02/04/2017 Admin istered Influenza Unknown 05/01/2022 Administered SOCIAL HISTORY Tobacco Use: Social History Observation Description Date Details (start date - stop date) Never Smoker NA - NA Sex Assigned At : Social History Observation Description Sex Assigned At Unknown Tobacco Use/Smoking Question Answer Notes Patient is a nonsmoker Alcohol Screen Question Answer Notes Did you have a drink contain ing alcohol in the past year? Yes How often did you have a dri nk containing alcohol in the past year? 4 or more times a week (4 points) How many drinks did you have on a typical day when you were drinking in the past year? 1 or 2 drinks (0 point) How often did you have 6 or more drinks on one occasion in the past year? Never (0 point) Points 4 Interpretation Positive PROBLEMS Problem Type ICD Code Onset Dates Problem Status W/U Status Risk SNOMED Code Notes Problem History of adenomatous polyp of colon (Z86.010) Active confirmed 119970575 Problem Encounter for screening for malignant neoplasm of colon (Z12.11) Active confirmed 566426198 Problem Long-term use of aspirin therapy (Z79.82) Active confirmed 579914632 Problem History of colon polyps (Z86.010) Active confirmed History of polyp of colon (242195332) Problem Diverticulosis of colon (K57.30) Active confirmed Diverticulosi s of colon (386083938) PLAN OF TREATMENT Future Test Test Name Order Date COLONOSCOPY 04/01/2017 COLONOSCOPY 05/14/2022 Insurance Providers Payer Name Payer Address Payer Phone Subscriber Number Group Number Insured Name Patient Relationship to Insured Coverage Start Date Coverage End Date MEDICARE OF [place] [address] [facility] [place] [id number] ELIJAH LAUREN Self - patient is the insured [facility] SUPPLEMENTAL PLAN [address] [place] [address] [phone] [id number] ELIJAH LAUREN Self - patient is the insured MEDICAL (GENERAL) HISTORY Medical History History ICD Code Denies OH,CVA,Lung disease,renal disease NIDDM HTN Hyperlipidemia Colonoscopies in 06/2006--rem oval of small tubular adenomas, mild diverticulosis, internal hemorrhoids; colonoscopy in January of 2012 at [facility] with removal of a small tubular adenoma. Colonoscopy 06/2017 with smal l tubular adenomas--incomplete colonoscopy but had a negative CT-colonography Surgical History Surgery Date(Month/Year) Back surgery x 2 2006 Left knee
== END 2024-06-08 15:58 | disposition home or self-care (01) ==
LOC: HO.XRAY 15:57
PROVIDERS: PCP Internal Medicine Medical Oncology; Visit Provider Internal Medicine Medical Oncology
DX: M54.50 Low back pain, unspecified (principal)
CPT/HCPCS: 72110; 72220

== ENCOUNTER → 2024-06-08 16:01 | Outpatient (BNV) | payer MEDICARE, SELFPAY | PROVIDERS: PCP Internal Medicine Medical Oncology; Visit Provider Radiology Diagnostic Radiology | DX: M54.32 Sciatica, left side (principal) | CPT/HCPCS: 72110; 72220 ==

== ENCOUNTER 2024-11-30 08:17 | Outpatient (AMB) | payer MEDICARE, SELFPAY ==
--- OUTSIDE RECORDS SUMMARY | 2024-11-15 05:30 | XMS_ITS ---
Author Organization Damon Alexander III, MD Address [address] [place] [address] Care Team Providers Care Fire Crew Worker Name Role Phone Damon Alexander Primary [...] 1 capsule Orally twice a day Active Wouzee Mediauch Delica Lancets 30G - as directed Test blood sugar Thursday, Thursday and thursday Active OneTouch Test - as directed In Vitro Check blood glucose on Thursday, Thursday and Thursday Active Fish Oil 1000 MG 1 capsule with a yao l Orally Once a day Active Adult Aspirin EC Low Strength 81 MG 1 tablet Orally Once a day Active Lisinopril 40 MG TAKE 1 TABLET BY MOUTH EVERY DAY Active TyraTechTouch Ultra System w/Device Check blood glucose on Thursday, Thursday, and Thursday06/15/2023 Active Simvastatin 40 MG TAKE 1 TABLET BY MOUTH EVERYDAY AT BEDTIME Active Ozempic (0.25 or 0.5 MG/DOSE) 2 MG/3ML 0.5mg once a week (increased from 0.25mg) Subcutaneous once a week for four weeks DX: Diabetes E 11.9 and Obesity E66.1 12/02/2023 Active Lino Mo Check blood glucose Thursday, Thursday and Thursday06/15/2023 [...] Date Provider Diagnosis Damon Alexander III, MD [address] [place] [address] [place] [address] 11/15/2024 Damon Alexander Type 2 diabetes leonardo [...] 500 MG TAKE 1 TABLET BY MO UT EVERY DAY Pending Test Test Name Order Date PROFILE, FASTING (COMPREHENSIVE METABOLI C) 11/15/2024 PSA, TOTAL 11/15/2024 CBC w DIFF 11/15/2024 Lipid Panel 11/15/2024 Microalbumin, Random 11/15/2024 Hemoglobin A1c 11/15/2024 Next Appt Details Follow Up: 6 Weeks, Reason: OV Provider Name:Damon Alexander, 12/27/2024 09:45:00 AM, [address] [facility] [place], [place], [phone], Provider Name:Damon Alexander, 04/14/2025 09:30:00 AM, [address] [facility] [place], [place], [phone], Progress Notes * Hans PROgeDOB:[birth year] (69 yo M)Acc No.[id number]:11/15/2024 Progress Notes Patient: Ivan PINZON Provider: Melissa Alexander MD :1955 A ge:69 Y S ex:Male Date:11/15/2024 Address:[place], [id number] Subjective: * Chief Complaints: * O zempic [...] * Medical History: * Surgical History: 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 He was born in [facility]. He has no toxic exposures. The [...] 1 TABLET BY MOUTH EVERY DAY; C ontinue OneTouch Ultra System Kit, w/Device, Check blood glucose on Thursday, Thursday, and Thursday; C ontinue OneTouch Delica Lancing Dev, Check blood glucose Thursday, Thursday and Thursday; C ontinue OneTouch Delica Lancets 30G Miscellaneous, -, as [...] MD Date: 0 11/15/2024 Generated for Sridevi chiang/Mick/eTsindyitting on: 11/30/2024 08:19 AM EDT History and Physical Notes * [...]
--- NOTE | 2024-11-30 08:32 | A.OFFVIS_ITS ---
Intake Visit Reasons: 3 month f/u Allergies No Known Allergies (NKA) Allergy (Verified 11/30/24 08:37) Medication List - Last Reconciled 11/30/24 by Jyoti Zuleta CNP aspirin 81 mg PO DAILY diltiazem HCl CD (Cardizem CD) 240 mg PO DAILY lisinopril 40 mg PO DAILY metformin 850 mg PO DAILY omega 3-rzv-ljc-fish oil 1,200 (144-216) mg (Fish Oil) 1 cap PO DAILY pregabalin (Lyrica) 200 mg PO BID semaglutide (Ozempic) 0.5 mg subcut QWEEK simvastatin 40 mg PO DAILY HPI Comments Details: Pain in legs was better with increased dose of pregabalin. No medication side effects. Sleep was okay and not waking with pain anymore. Still has some occasional numbness and tingling, mostly on the left, usually early in the morning. Goes for walks. No falls. Blood sugar has been under control, blood sugar this morning was 124. Started Ozempic about a month ago and has lost some weight. Previously was having more pain in legs when laying down, throbbing and not sleeping well because of pain.?Sometimes gets numbness/tingling in feet. No gout attacks. LBP is under control also. s/p 2 lumbar discectomies around [address] Patel for back pain. He presented with numbness in the lateral aspect of both feet but not on the dorsum of the soles. There was no sciatic or no significant back pain, no complaints of any gait problems. 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 Review of Systems Const Denies chills, Denies daytime sleepiness, Denies difficulty sleeping, Denies fatigue, Denies fever(s), Denies frequent falls, Denies headache(s), Denies increased appetite, Denies poor appetite, Denies snoring, Denies weakness, Denies weight gain and Denies weight loss Eyes Denies loss of vision ENT Denies vertigo, Denies dizziness, Denies headache(s) and Denies neck pain Card Denies chest pain at rest, Denies chest pain with activity, Denies syncope, Denies leg edema, Denies palpitations, Denies dyspnea and Denies dyspnea on exertion Resp Denies cough, Denies dyspnea, Denies dyspnea on exertion and Denies snoring GI Denies abdominal pain, Denies constipation, Denies heartburn, Denies diarrhea and Denies nausea Denies urinary frequency, Denies urinary incontinence and Denies urinary urgency Musc Denies abnormal gait, Denies back pain, Denies myalgias, Denies arthralgias, De nies neck pain, Reports numbness, Denies stiffness and Reports tingling Neuro Denies abnormal gait, Denies vertigo, Denies dizziness, Denies syncope, Denies frequent falls, Denies headache(s), Denies lack of coordination, Denies loss of vision, Denies memory loss, Reports numbness, Denies Other visual disturbances, Denies restless legs, Denies seizure-like activity, Reports tingling, Denies paresthesias, Denies tremor(s) and Denies weakness Psych Denies anxiety, Denies depression, Denies memory loss, Denies visual hallucinations and Denies hallucinations Endo Denies fatigue and Denies palpitations Physical Exam Const Other: General Appearance:? normal, in no acute distress. Heart:? S1, S2 normal, no murmurs. Lungs:? clear anteriorly and posteriorly. Musculoskeletal:? normal. Extremities:? no edema. Psych:? alert, oriented, cognitive function intact, cooperative with exam. Neuro Other: Abnormal Neurological Findings:?Inverted Linwood bottle legs. Absent ankle reflexes. High arches. Atrophy of the intrinsic foot muscles with weakness of EDB and toe flexors and everters of the ankle. Sensory exam is intact. Unable to walk on his heels or toes. Left dorsiflexors are 4+/ 5 Mental Status: alert and oriented X 3. Normal attention, orientation, memory, and affect. Cranial Nerves: Pupils are equal, round, and reactive to light. External ocular muscles are intact. Visual sexton are full, no ptosis. Face is symmetrical, no facial weakness or droop. Facial sensations are normal. Tongue protrudes in midline. Palate elevates symmetrically. Shoulder shrugging is normal Motor Examination: Weakness and atrophy in the foot muscles as reported above, otherwise Normal muscle tone, bulk and strength, No atrophy or fasciculations, No drift of the extended upper extremities, Deep tendon reflexes are 2+ with absent ankle reflexes , Plantars are flexor Straight Leg Raisin degrees. Sensory Exam: Normal light touch, temperature, pinprick, vibration, and joint- position sensations. Rhomberg sign is absent. Coordination: No ataxia. No titubation. Oqgnfr-mw-sxak, bawu-bpmu-wmwc test, and rapid alternating movements were normal. Gait Exam: Within normal limits. Cerebellar Signs: Fqaaon-en-mcwv and qvuc-gd-qifo is normal. No dysdiadochokinesia. Extrapyramidal System: No tremor, rigidity with normal facial expressions. No bradykinesia. No bradyphrenia. Normal arm swing and posture. No propulsion or retropulsion. Speech: Normal. No dysphasia or dysarthria. Assessment & Plan Assessment & Plan (1) Peripheral neuropathy: Code(s): G62.9 - Polyneuropathy, unspecified Category: Medical Qualifiers: Peripheral neuropathy type: polyneuropathy, unspecified Qualified Code(s): G62.9 - Polyneuropathy, unspecified Plan: Continue pregabalin 200mg 1 capsule orally twice a day (2) Diabetic peripheral neuropathy: Code(s): E11.42 - Type 2 diabetes mellitus with diabetic polyneuropathy Category: Medical Plan: He was educated on the importance of controlling blood sugar, stay physically active. Plan . Coding Level of Care Code Est Pt Level 3 (78172) Diagnoses Peripheral polyneuropathy G62.9 Peripheral neuropathy type: polyneuropathy, unspecified Diabetic peripheral neuropathy E11.42
== END 2024-11-30 08:50 | disposition home or self-care (01) ==
LOC: HO.HSM 08:18
PROVIDERS: Family Provider Internal Medicine Medical Oncology; PCP Internal Medicine Medical Oncology; Visit Provider Registered Nurse
DX: E11.42 Type 2 diabetes mellitus with diabetic polyneuropathy (principal)
CPT/HCPCS: 99213

== ENCOUNTER → 2024-11-30 08:17 | Outpatient (BNVA) | payer MEDICARE, SELFPAY | PROVIDERS: Family Provider Internal Medicine Medical Oncology; PCP Internal Medicine Medical Oncology; Visit Provider Registered Nurse | DX: E11.42 Type 2 diabetes mellitus with diabetic polyneuropathy (principal); Z79.84 Long term (current) use of oral hypoglycemic drugs; Z79.85 Long-term (current) use of injectable non-insulin antidiabetic drugs | CPT/HCPCS: 99212 ==

== ENCOUNTER 2024-12-20 06:38 | Outpatient (REF) | payer MEDICARE, SELFPAY ==
--- OUTSIDE RECORDS SUMMARY | 2024-11-15 05:30 | XMS_ITS ---
Author Organization Damon Alexander III, MD Address [address] [place] [address] Care Team Providers Care Freight Manager Name Role Phone Damon Alexander Primary Care [...] 1 capsule Orally twice a day Active Mimetogen Pharmaceuticalsuch Delica Lancets 30G - as directed Test [...] 1 TABLET BY MOUTH EVERY DAY Active FolioDynamixTouch Ultra System w/Device Check blood glucose on [...] Provider Diagnosis Damon Alexander III, MD [address] [place] [address] [place] [address] 11/15/2024 Damon Alexander Type 2 diabetes leonardo [...] Provider Name:Damon Alexander, 12/27/2024 09:45:00 AM, [address] [facility] [place], [place], [address], Provider Name:Damon Alexander, 04/14/2025 09:30:00 AM, [address] [facility] [place], [place], [address], Progress Notes * Hans PROgeDOB:[birth year] (69 yo M)Acc No.[id number]:11/15/2024 Progress Notes Patient: Ivan PINZON Provider: Melissa Alexander MD :1955 A ge:69 Y S ex:Male Date:11/15/2024 Address:[place], [id number] Subjective: * Chief Complaints: * O zempic [...] * Medical History: * Surgical History: 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 He was born in [facility]. He has no toxic exposures. The patient [...] 0 11/15/2024 Generated for Sridevi chiang/Mick/eTsindyitting on: 0 12/20/2024 06:40 AM EDT History and Physical Notes * [...]
[2024-12-20 06:48] LABS: MANUAL DIFF FLAG NO
[2024-12-20 07:23] LABS: Hematocrit 39.4 % (42.0-52.0); Hemoglobin 13.5 g/dl (14.0-18.0); Imm Gran Abs Auto 0.01 X10*3/uL (0.00-0.03); Imm Gran Pct Auto 0.2 % (0.0-0.4); Lymphocytes Absolute Auto 1.6 X10*3/uL (1.2-4.9); Mean Corpuscular HGB Conc 34.3 g/dl (31.0-36.0); Mean Corpuscular Hemoglobin 32.9 pg (27.0-33.0); Mean Corpuscular Volume 96.1 fL (80.0-98.0); NRBC Abs Auto 0.000 X10*3/uL (0.0-0.012); NRBC Pct Auto 0.0 /100WBC (0.0-0.2); Platelet Count 192 X10*3/uL (160-400); Red Blood Count 4.10 X10*6/uL (4.60-5.80); White Blood Count 5.2 X10*3/uL (4.8-10.8)
[2024-12-20 07:32] LABS: Hemoglobin A1C 119.0770 umol/L; Total Hemoglobin (HGBA1C) 3577.8016 umol/L
[2024-12-20 07:50] LABS: Alanine Aminotransferase 23 U/L (0-40); Albumin Level 4.5 g/dL (3.5-5.0); Alkaline Phosphatase 51 U/L (39-117); Anion Gap 10 (12-20); Aspartate Amino Transferase 23 U/L (5-37); Blood Urea Nitrogen 19 mg/dL (9-16); Calcium 9.1 mg/dL (8.4-10.2); Carbon Dioxide 27 mmol/L (22-29); Chloride 109 mmol/L (96-108); Cholesterol 159 mg/dL (<200); Estimated Glomerular Filt Rate > 60; HDL Cholesterol 45 mg/dL (>40); Potassium 5.4 mmol/L (3.3-5.1); Sodium 141 mmol/L (135-145); Total Protein 7.5 g/dL (6.5-8.0); Triglycerides 181 mg/dL (<150)
[2024-12-20 08:10] LABS: Prostate Specific Antigen 0.21 ng/mL (<0.05-4.0)
[2024-12-20 08:50] LABS: Microalbum/Creatinine Ratio Ur 15.2 ug/mg cr (<30)
== END 2024-12-20 06:39 | disposition home or self-care (01) ==
LOC: HO.LAB 06:38
PROVIDERS: PCP Internal Medicine Medical Oncology; Visit Provider Internal Medicine Medical Oncology
DX: E11.9 Type 2 diabetes mellitus without complications (principal); E66.9 Obesity, unspecified; N40.0 Benign prostatic hyperplasia without lower urinary tract symptoms; E78.49 Other hyperlipidemia
CPT/HCPCS: 36415; 80053; 80061; 82043; 82570; 83036; 84153; 85025

== ENCOUNTER 2025-02-02 08:35 | Outpatient (AMB) | payer MEDICARE, SELFPAY ==
--- OUTSIDE RECORDS SUMMARY | 2024-10-11 07:50 | XMS_ITS ---
Author Organization Damon Alexander III, MD Address [address] [place] [address] Care Team Providers Care Melter Loader Name Role Phone Damon Alexander Primary Care Provider REASON FOR VISIT [employer] Social History Sex Assigned At : Social History Observation Description Sex Assigned At Male Encounters Encounter Location Date Provider Diagnosis Damon Alexander III, MD [address] [place] [address] [place] [address] 10/11/2024 Damon Alexander Plan Of Treatment Next Appt Details Provider Name:Damon Alexander, 02/24/2025 09:15:00 AM, [address] [place] [address] [place], [address], Provider Name:Damon Alexander, 04/14/2025 09:30:00 AM, [address] [place] [address] [place], [address], Progress Notes * James PROOB:[birth year] (69 yo M)Acc No.[id number]:10/11/2024 Patient: Rachel Ivan JUAREZ :1955 A ge:69 Y S ex:Male Address[address] [place] [address] * true * Date: Generated for Sridevi chiang/Mick/Thuan on: 0 02/02/2025 09:07 AM EDT
--- OUTSIDE RECORDS SUMMARY | 2024-10-20 06:30 | XMS_ITS ---
Author Organization Damon Alexander III, MD Address [address] [place] [address] Care Team Providers Care Special Equipment Technician Name Role Phone Damon Alexander Primary Care Provider [phone] Allergies Allergen (clinical drug ingredient) Drug/Non Drug [...] 1 tablet Orally Once a day Active EdaytownTouch Delica Lancing Dev Check blood glucose Thursday, Thursday and Thursday06/15/2023 Active EdaytownTouch Ultra System w/Device Check blood glucose on [...] Date Provider Diagnosis Damon Alexander III, MD [address] [place] [address] [place] [address] 10/20/2024 Damon Alexander Type 2 diabetes mellitus [...] Weeks, Reason: ov no tests Provider Name:Damon Alexander, 02/24/2025 09:15:00 AM, [address] [place] [address] [place], [address], Provider Name:Damon Alexander, 04/14/2025 09:30:00 AM, [address] [place] [address] [place], [address], Progress Notes * Breana PRO:[birth year] (69 yo M)Acc No.[id number]:10/20/2024 Progress Notes Patient: Ivan PINZON Provider: Melissa Alexander MD :1955 A ge:69 Y S ex:Male Date:10/20/2024 Address: [id number] Subjective: * Chief Complaints: * O zempic [...] * Medical History: * Surgical History: 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 He was [facility] in [facility]. He has no toxic exposures. The patient [...] and Obesity E66.1, Notes: 09/23/[address] Benjamin Sorianoempic increased to 0.5mg once a week starting [...] and Obesity E66.1, Notes: 09/23/[address] Benjamin Sorianoempic increased to 0.5mg once a week starting [...] Examination: G eneral Examination: GENERAL APPEARANCE: p alexis, well nourished, well developed, in no acute [...] 1 TABLET BY MOUTH EVERY DAY; C [employer] EdaytownTouch Ultra System Kit, w/Device, Check blood glucose on Thursday, Thursday, and Thursday; C [employer] EdaytownTouch Delica Lancing Dev, Check blood glucose Thursday, Thursday and Thursday; C [employer] OneTouch Delica Lancets 30G Miscellaneous, -, as directed, Test blood sugar Thursday, Thursday and thursday; C [employer] OneTouch Test Strip, -, as directed, In Vitro, [...] MD Date: 0 10/20/2024 Generated for Sridevi chiang/Mick/Robitting on: 0 02/02/2025 09:07 AM EDT History and Physical Notes * [...]
--- OUTSIDE RECORDS SUMMARY | 2024-11-15 05:30 | XMS_ITS ---
Author Organization Damon Alexander III, MD Address [address] [place] [address] Care Team Providers Care Grill Prep Cook Name Role Phone Damon Alexander Primary Care [...] 1 capsule Orally twice a day Active AMKAIuch Delica Lancets 30G - as directed Test [...] 1 TABLET BY MOUTH EVERY DAY Active GeoOPTouch Ultra System w/Device Check blood glucose on [...] Date Provider Diagnosis Damon Alexander III, MD [address] [place] [address] [place] [address] 11/15/2024 Damon Alexander Type 2 diabetes leonardo [...] 6 Weeks, Reason: OV Provider Name:Damon Alexander, 02/24/2025 09:15:00 AM, [address] [place] [address] [address], [place], [address], Provider Name:Damon Alexander, 04/14/2025 09:30:00 AM, [address] [place] [address] [address], [place], [phone], Progress Notes * Hans PROgeDOB:[birth year] (69 yo M)Acc No.[id number]:11/15/2024 Progress Notes Patient: Ivan PINZON Provider: Melissa Alexander MD :1955 A ge:69 Y S ex:Male Date:11/15/2024 Address:[place], [id number] Subjective: * Chief Complaints: * O zempic [...] * Medical History: * Surgical History: 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 He was born in [facility]. He has no toxic exposures. The patient [...] 11/15/2024 Generated for Sridevi chiang/Mick/eTsindyitting on: 0 02/02/2025 09:06 AM EDT History and Physical Notes * [...]
--- OUTSIDE RECORDS SUMMARY | 2024-12-27 05:45 | XMS_ITS ---
Author Organization Damon Alexander III, MD Address [address] [place] [address] Care Team Providers Care Neon Pumper Name Role Phone Damon Alexander Primary Care Provider Allergies Allergen (clinical drug ingredient) Drug/Non Drug Allergy documented on EMR Reaction Allergy Type Onset Date Status No Known Drug Allergy Unknown Drug Allergy Active REASON FOR VISIT Obesity, diabetes, Hypertension, Lumbar back pain Medications Medication SIG (Take, Route, Frequency, Duration) Notes Start Date End Date Status Fish Oil 1000 MG 1 capsule with a yao l Orally Once a day Active Adult Aspirin EC Low Strength 81 MG 1 tablet Orally Once a day Active FoodistTouch Test - as directed In Vitro Check blood glucose on Thursday, Thursday and Thursday Active Lyrica 75 MG 1 capsule Orally twice a day Active metFORMIN HCl 500 MG TAKE 1 TABLET BY MOUTH EVERY DAY Active [employer] Delica Lancets 30G - as directed Test blood sugar Thursday, Thursday and thursday Active Ozempic (0.25 or 0.5 MG/DOSE) 2 MG/3ML 0.5mg once a week (increased from 0.25mg) Subcutaneous once a week for four weeks DX: Diabetes E 11.9 and Obesity E66.1 12/02/2023 Active Lisinopril 40 MG TAKE 1 TABLET BY MOUTH EVERY DAY Active Health Catalyst Ultra System w/Device Check blood glucose on Thursday, Thursday, and Thursday06/15/2023 Active Lino Govea Dev Check blood glucose Thursday, Thursday and Thursday06/15/2023 Active Simvastatin 40 MG TAKE 1 TABLET BY MOUTH EVERYDAY AT BEDTIME Active Social History Tobacco Use: Social History Observation Description Date Details (start date - stop date) Never Smoker NA - NA Sex Assigned At : Social History Observation Description Sex Assigned At Male Tobacco Use/Smoking Question Answer Notes Patient is a nonsmoker Additional Findings: Tobacco Non-User Aggressive non-smoker Problems Problem Type SNOMED Code ICD Code Onset Dates Problem Status W/U Status Risk Notes Problem [id number] Obesity (E66.9) Active confirmed He has decided to stop the Ozempic. We made a plan to lose weight at a rate of 1 pound per week through physical activity a healthy diet. Vital Signs Temperature 98.4 degrees Fahrenheit 12/28/19 25 Blood pressure systolic 119 mm Hg 12/28/19 25 Blood pressure diastolic 73 mm Hg 025 Heart Rate 71 /min 12/27/2024 Height 69 in 12/27/2024 Weight 227 lbs 12/27/2024 BMI 33.52 kg/m2 12/27/2024 Encounters Encounter Location Date Provider Diagnosis Damon Alexander III, MD [address] [place] [address] [place] [address] 12/27/2024 Damon Alexander Type 2 diabetes leonardo itus without complications E11.9 ; Hyperlipidemia type II E78.0 ; Obesity E66.9 ; Essential hypertension I10 ; BPH (benign prostatic hyperplasia) N40.0 and Lumbar back pain M54.50 Assessments Encounter Date Diagnosis (ICD Code) Assessment Notes Treat ment Notes Treatment Clinical Notes 12/27/2024 Type 2 diabetes mellitus without complications (ICD-10 - E11.9) His hemoglobin A1c is quite low as is his fasting glucose. He has been compliant with his treatment.. No change in his regimen was made. He was given A requisition for blood work to be done in the near future to include a hemoglobin A1c microalbumin and fasting glucose. 12/27/2024 Hyperlipidemia type II (ICD-10 - E78.0) His lipids are currently stable and controlled and no change in his regimen was needed. 12/27/2024 Obesity (ICD-10 - E66.9) He has decided to stop the Ozempic. We made a plan to lose weight at a rate of 1 pound per week through physical activity a healthy diet. 12/27/2024 Essential hypertension (ICD-10 - I10) His blood pressure is currently stable. I have strongly recommended aggressive weight loss and sodium restriction. He will return to the office regularly for measurement of his vital signs. 12/27/2024 BPH (benign prostati c hyperplasia) (ICD-10 - N40.0) He has been rising from sleep once a night to urinate. We discussed lifestyle modifications he could make to reduce nocturia. 12/27/2024 Lumbar back pain (ICD-10 - M54.50) He had a laminectomy many years ago for the same problem. This appears to be a disc problem at L5-S1. He was given gabapentin and dexamethasone. An MRI was requested. He was referred to physical therapy. Plan Of Treatment Medication Medication Name Sig Start Date Stop Date Notes Fish Oil 1000 MG 1 capsule with a yao l Orally Once a day Adult Aspirin EC Low Strength 81 MG 1 tablet Orally Once a day OneTouch Test - as directed In Vitro Check blood glucose on Thursday, Thursday and Thursday Lyrica 75 MG 1 capsule Orally twi ce a day metFORMIN HCl 500 MG TAKE 1 TABLET BY MO UTH EVERY DAY OneTouch Delica Lancets 30G - as directed Test blood sugar Thursday, Thursday and thursday Ozempic (0.25 or 0.5 MG/DOSE) 2 MG/3ML 0.5mg once a week (increased from 0.25mg) Subcutaneous once a week for four weeks 12/02/2023 DX: Diabetes E 11.9 and Obesity E66.1 Lisinopril 40 MG TAKE 1 TABLET BY NANCY TH EVERY DAY FoodistTouch Ultra System w/Device Check blood glucose on Thursday, Thursday, and Thursday06/15/2023 OneTouch Delica Lancing Dev Check blood glucose Thursday, Thursday and Thursday06/15/2023 Simvastatin 40 MG TAKE 1 TABLET BY NANCY TH EVERYDAY AT BEDTIME Next Appt Details Follow Up: 2 Months, Reason: OV Provider Name:Damon Alexander, 02/24/2025 09:15:00 AM, [address] [place] [address] , [place] [address], [place], [address], Provider Name:Damon Alexander, 04/14/2025 09:30:00 AM, [address] [place] [address] [place], [place], [address], Progress Notes * James PROOB:[birth year] (69 yo M)Acc No.[id number]:12/27/2024 Progress Notes Patient: Ivan PINZON Provider: Melissa Alexander MD :1955 A ge:69 Y S ex:Male Date:12/27/2024 Address: [place], [id number] Subjective: * Chief Complaints: * O besityDiabetesHypertensionLumbar back pain * HPI: C OVID-19 Screening: . He returns for a scheduled medical management. His disappointed with his Ozempic as he has not lost much weight. He does not want to continue that medication. He is determined to stop it and therefore I have not refilled it. He has had an episode of epistaxis but not recently. His hips and knees are painful but his back is not. Her worst joint of his right knee where thien has had surgery in the past. His left shoulder hurts as well. He is going back to orthopedics to discuss these issues with his orthopedic surgeon.His blood work was reviewed with him in detail. Questions H ave you had any new onset fever, chills, cough, congestion, sore throat, shortness of breath, muscle aches? N o * ROS: G eneral/Constitutional: pain R ight knee and left shoulder, hips. C hills d enies. F atigue a [...] enies.?Headache d enies. L ow back pain t hat is chronic. P sychiatric: Depressed mood d enies. 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 He was born in [facility]. He has no toxic exposures. The [...] for four weeks , Notes to Pharmacist: BETO: Diabetes E 11.9 and Obesity E66.1, Notes: [...] Verified] Objective: * Vitals: H t: 69, Wt:227, BMI:33.52, BP:119/73, HR:71, Temp:98.4, Ht-cm: 175.26, Wt-k.97. * P ast Orders: Lab:Prostate Specific Antige n * Collection Date 12/20/2024 04/04/2024 06/11/2022 Collection Time 06:47 AM 06:48 AM 06:27 AM Order Date 12/20/2024 04/04/2024 06/11/2022 Prostate Specific Antigen 0.21 (Ref Range: <0.05-4.0 ng/mL) 1.17 (Ref Range: <0.05-4.0 ng/mL) 0.23 (Ref Range: <0.05-4.0 ng/mL) * Lab:Microalbumin, Random * Collection Date 12/20/2024 04/04/2024 08/05/2023 Collection Time 06:44 AM 06:47 AM 06:40 AM Order Date 12/20/2024 04/04/2024 08/05/2023 Creatinine Urine 105.09 (Ref Range: mg/dL) 143.78 (Ref Range: mg/dL) 127.71 (Ref Range: mg/dL) Microalbumin Urine 16.0 (Ref Range: mg/L) 23.0 (Ref Range: mg/L) 7.0 (Ref Range: mg/L) Microalbum Creatinine Ratio Ur 15.2 (Ref Range: <30 ug/mg cr) 15.9 (Ref Range: <30 ug/mg cr) 5.4 (Ref Range: <30 ug/mg cr) * Lab:Hemoglobin A1c * Collection Date 12/20/2024 04/04/2024 11/25/2023 Collection Time 06:47 AM 06:48 AM 06:50 AM Order Date 12/20/2024 04/04/2024 11/25/2023 Hemoglobin A1c % 5.2 (Ref Range: <6.0 %) 5.2 (Ref Range: <6.0 %) 5.4 (Ref Range: <6.0 %) Estimated Average Glucose 103 (Ref Range: mg/dL) 103 (Ref Range: mg/dL) 108 (Ref Range: mg/dL) * Lab:Complete Blood Count Aut o Diff * Collection Date 12/20/2024 04/04/2024 11/25/2023 Collection Time 06:47 AM 06:48 AM 06:50 AM Order Date 12/20/2024 04/04/2024 11/25/2023 White Blood Count 5.2 (Ref Range: 4.8-10.8 X10*3/uL) 5.6 (Ref Range: 4.8-10.8 X10*3/uL) 6.6 (Ref Range: 4.8-10.8 X10*3/uL) Red Blood Count 4.10 L (Ref Range: 4.60-5.80 X10*6/uL) 4.14 L (Ref Range: 4.60-5.80 X10*6/uL) 4.24 L (Ref Range: 4.60-5.80 X10*6/uL) Hemoglobin 13.5 L (Ref Range: 14.0-18.0 g/dl) 13.4 L (Ref Range: 14.0-18.0 g/dl) 13.8 L (Ref Range: 14.0-18.0 g/dl) Hematocrit 39.4 L (Ref Range: 42.0-52.0 %) 40.0 L (Ref Range: 42.0-52.0 %) 40.9 L (Ref Range: 42.0-52.0 %) Mean Corpuscular Volume 96.1 (Ref Range: 80.0-98.0 fL) 96.6 (Ref Range: 80.0-98.0 fL) 96.5 (Ref Range: 80.0-98.0 fL) Mean Corpuscular Hemoglobin 32.9 (Ref Range: 27.0-33.0 pg) 32.4 (Ref Range: 27.0-33.0 pg) 32.5 (Ref Range: 27.0-33.0 pg) Mean Corpuscular HGB Conc 34.3 (Ref Range: 31.0-36.0 g/dl) 33.5 (Ref Range: 31.0-36.0 g/dl) 33.7 (Ref Range: 31.0-36.0 g/dl) Red Cell Distribution Width 14.1 (Ref Range: 11.0-16.0 %) 13.9 (Ref Range: 11.0-16.0 %) 14.0 (Ref Range: 11.0-16.0 %) Platelet Count 192 (Ref Range: 160-400 X10*3/uL) 244 (Ref Range: 160-400 X10*3/uL) 194 (Ref Range: 160-400 X10*3/uL) Mean Platelet Volume 9.8 (Ref Range: 9.4-12.4 fL) 9.7 (Ref Range: 9.4-12.4 fL) 10.2 (Ref Range: 9.4-12.4 fL) Neutrophils Percent Auto 52.2 (Ref Range: 45-73 %) 53.8 (Ref Range: 45-73 %) 62.1 (Ref Range: 45-73 %) Imm Gran Pct Auto 0.2 (Ref Range: 0.0-0.4 %) 0.4 (Ref Range: 0.0-0.4 %) 0.3 (Ref Range: 0.0-0.4 %) Lymphocytes Percent Auto 30.3 (Ref Range: 20-40 %) 31.9 (Ref Range: 20-40 %) 24.8 (Ref Range: 20-40 %) Monocytes Percent Auto 13.6 H (Ref Range: 2-11 %) 11.3 H (Ref Range: 2-11 %) 10.5 (Ref Range: 2-11 %) Eosinophils Percent Auto 3.1 (Ref Range: 0-4 %) 2.1 (Ref Range: 0-4 %) 1.7 (Ref Range: 0-4 %) Basophils Percent Auto 0.6 (Ref Range: 0-2 %) 0.5 (Ref Range: 0-2 %) 0.6 (Ref Range: 0-2 %) NRBC Pct Auto 0.0 (Ref Range: 0.0-0.2 /100WBC) 0.0 (Ref Range: 0.0-0.2 /100WBC) 0.0 (Ref Range: 0.0-0.2 /100WBC) Neutrophils Absolute Auto 2.7 (Ref Range: 2.0-8.3 x10*3/uL) 3.0 (Ref Range: 2.0-8.3 x10*3/uL) 4.1 (Ref Range: 2.0-8.3 x10*3/uL) Imm Gran Abs Auto 0.01 (Ref Range: 0.00-0.03 X10*3/uL) 0.02 (Ref Range: 0.00-0.03 X10*3/uL) 0.02 (Ref Range: 0.00-0.03 X10*3/uL) Lymphocytes Absolute Auto 1.6 (Ref Range: 1.2-4.9 X10*3/uL) 1.8 (Ref Range: 1.2-4.9 X10*3/uL) 1.6 (Ref Range: 1.2-4.9 X10*3/uL) Monocytes Absolute Auto 0.7 (Ref Range: 0.1-1.2 X10*3/uL) 0.6 (Ref Range: 0.1-1.2 X10*3/uL) 0.7 (Ref Range: 0.1-1.2 X10*3/uL) Eosinophils Absolute Auto 0.2 (Ref Range: 0.0-0.4 X10*3/uL) 0.1 (Ref Range: 0.0-0.4 X10*3/uL) 0.1 (Ref Range: 0.0-0.4 X10*3/uL) Basophils Absolute Auto 0.0 (Ref Range: 0.0-0.2 X10*3/uL) 0.0 (Ref Range: 0.0-0.2 X10*3/uL) 0.0 (Ref Range: 0.0-0.2 X10*3/uL) NRBC Abs Auto 0.000 (Ref Range: 0.0-0.012 X10*3/uL) 0.000 (Ref Range: 0.0-0.012 X10*3/uL) 0.000 (Ref Range: 0.0-0.012 X10*3/uL) * Lab:Candi Tracy * Collection Date 12/20/2024 04/04/2024 08/05/2023 Collection Time 06:47 AM 06:48 AM 06:52 AM Order Date 12/20/2024 04/04/2024 08/05/2023 Sodium 141 (Ref Range: 135-145 mmol/L) 142 (Ref Range: 135-145 mmol/L) 140 (Ref Range: 135-145 mmol/L) Bilirubin Total 1.0 (Ref Range: 0.0-1.0 mg/dL) 0.5 (Ref Range: 0.0-1.0 mg/dL) 0.8 (Ref Range: 0.0-1.0 mg/dL) Aspartate Amino Transferase 23 (Ref Range: 5-37 U/L) 29 (Ref Range: 5-37 U/L) 20 (Ref Range: 5-37 U/L) Alanine Aminotransferase 23 (Ref Range: 0-40 U/L) 31 (Ref Range: 0-40 U/L) 19 (Ref Range: 0-40 U/L) Total Protein 7.5 (Ref Range: 6.5-8.0 g/dL) 7.4 (Ref Range: 6.5-8.0 g/dL) 7.3 (Ref Range: 6.5-8.0 g/dL) Albumin Level 4.5 (Ref Range: 3.5-5.0 g/dL) 4.1 (Ref Range: 3.5-5.0 g/dL) 4.2 (Ref Range: 3.5-5.0 g/dL) Alkaline Phosphatase 51 (Ref Range: 39-117 U/L) 66 (Ref Range: 39-117 U/L) 45 (Ref Range: 39-117 U/L) Potassium 5.4 H (Ref Range: 3.3-5.1 mmol/L) 5.2 H (Ref Range: 3.3-5.1 mmol/L) 4.5 (Ref Range: 3.3-5.1 mmol/L) Chloride 109 H (Ref Range: 96-108 mmol/L) 106 (Ref Range: 96-108 mmol/L) 105 (Ref Range: 96-108 mmol/L) Carbon Dioxide 27 (Ref Range: 22-29 mmol/L) 26 (Ref Range: 22-29 mmol/L) 29 (Ref Range: 22-29 mmol/L) Anion Gap 10 L (Ref Range: 12-20) 15 (Ref Range: 12-20) 11 L (Ref Range: 12-20) Blood Urea Nitrogen 19 H (Ref Range: 9-16 mg/dL) 16 (Ref Range: 9-16 mg/dL) 23 H (Ref Range: 9-16 mg/dL) Creatinine 0.99 (Ref Range: 0.5-1.4 mg/dL) 0.93 (Ref Range: 0.5-1.4 mg/dL) 1.03 (Ref Range: 0.5-1.4 mg/dL) Estimated Glomerular Filt Rate > 60 > 60 > 60 Glucose Fasting 97 (Ref Range: 60-99 mg/dL) 115 H (Ref Range: 60-99 mg/dL) 112 H (Ref Range: 60-99 mg/dL) Calcium 9.1 (Ref Range: 8.4-10.2 mg/dL) 9.6 (Ref Range: 8.4-10.2 mg/dL) 9.4 (Ref Range: 8.4-10.2 mg/dL) * Lab:Lipid Panel * Collection Date 12/20/2024 04/04/2024 11/25/2023 Collection Time 06:47 AM 06:48 AM 06:50 AM Order Date 12/20/2024 04/04/2024 11/25/2023 Triglycerides 181 H (Ref Range: <150 mg/dL) 190 H (Ref Range: <150 mg/dL) 201 H (Ref Range: <150 mg/dL) Cholesterol 159 (Ref Range: <200 mg/dL) 150 (Ref Range: <200 mg/dL) 181 (Ref Range: <200 mg/dL) LDL Cholesterol Calculated 78 (Ref Range: <100 mg/dL) 70 (Ref Range: <100 mg/dL) 94 (Ref Range: <100 mg/dL) HDL Cholesterol 45 (Ref Range: >40 mg/dL) 42 (Ref Range: >40 mg/dL) 47 (Ref Range: >40 mg/dL) * Examination: G eneral Examination: GENERAL APPEARANCE: p leasant, well nourished, well developed, in no acute distress, calm and relaxed: obese: man. HEAD: a traumatic, normocephalic. EYES: e katie, perrla, anicteric, conjugate. EARS: n ormal. NOSE: s eptum intact, No current bleeding. ORAL CAVITY: n ormal, unremarkable. NECK/THYROID: n [...] sounds normal, no ascites, no organomegaly, no mass: centripital obesity. RECTAL EXAM: n ot examined. MUSCULOSKELETAL: e xtremities unremarkable, no clubbing, cyanosis or edema. PERIPHERAL PULSES: n ormal. NEUROLOGIC: a lert and oriented, cranial nerves 2-12 grossly intact, deep tendon reflexes 2+ symmetrical, motor strength normal upper and lower extremities, sensory exam intact. PSYCH: a lert, oriented. Assessment: * Assessment: 1. H yperlipidemia type II - E78.0 (Primary) N otes :His lipids are currently stable and controlled and no change in his regimen was needed. 2 . T ype 2 diabetes mellitus without complications - E11.9 N otes :His hemoglobin A1c is quite low as is his fasting glucose. He has been compliant with his treatment.. No change in his regimen was made. He was given A requisition for blood work to be done in the near future to include a hemoglobin A1c microalbumin and fasting glucose. 3 . O besity - E66.9 N otes :He has decided to stop the Ozempic. We made a plan to lose weight at a rate of 1 pound per week through physical activity a healthy diet. 4 . E ssential hypertension - I10 N otes :His blood pressure is currently stable. I have strongly recommended aggressive weight loss and sodium restriction. He will return to the office regularly for measurement of his vital signs. 5 . B PH (benign prostatic hyperplasia) - N40.0 N otes :He has been rising from sleep once a night to urinate. We discussed lifestyle modifications he could make to reduce nocturia. 6 . L umbar back pain - M54.50 N otes :He had a laminectomy many years ago for the same problem. This appears to be a disc problem at L5-S1. He was given gabapentin and dexamethasone. An MRI was requested. He was referred to physical therapy. Plan: * Treatment: 2. O thers Continue [...] Follow-up D ietary management education, guidance, and counseling DM Care Plan: P atient Lifestyle Goals P atient wants to be able to manage diabetes without too much effort. T reatment Goals H bA1C < 7.0. B arriers n o barriers. S elf-Managment Goals W ork on weight loss, with a goal of losing 1 lb per week. * Follow Up: 2 Months (Reason: OV) * Images: * Sign off status: Completed true * Provider: Melissa Alexander MD Date: 12/27/2024 Generated for Sridevi chiang/Mick/Robitting on: 02/02/2025 09:07 AM EDT History and Physical Notes * HPI (History of Present Illness) Category Sub-Category Detail Notes COVID-19 Screening Questions Have you had any new onset fever, chills, cough, congestion, sore throat, shortness of breath, muscle aches?: No Examination Category Sub-Category Detail Notes General Examination GENERAL APPEARANCE: pleasant , well nourished, well developed, in no acute distress, calm and relaxed: obese: man HEAD: atraumatic, normocep halic EYES: eomi, perrla, anicte caroline, conjugate EARS: normal NOSE: septum intact, No cu rrent bleeding NECK/THYROID: no jugular venous di stention, no carotid bruit, thyroid normal HEART: no clicks, gallops, murmurs, or rubs, regular rhythm, S1, S2 normal, no s3, or vascular bruits LUNGS: clear to auscultatio n ABDOMEN: bowel sounds normal, no ascites, no organomegaly, no mass: centripital obesity NEUROLOGIC: alert and oriented, cranial [...]
--- OUTSIDE RECORDS SUMMARY | 2025-01-12 05:46 | XMS_ITS ---
Author Organization Damon Alexander III, MD Address [address] [place] [address] Care Team Providers Care Sales Outfitter Name Role Phone Damon Alexander Primary Care Provider REASON FOR VISIT stopped taking Ozempic Social History Sex Assigned At : Social History Observation Description Sex Assigned At Male Encounters Encounter Location Date Provider Diagnosis Damon Alexander III, MD [address] [place] [address] [place] [address] 01/12/2025 Damon Alexander Plan Of Treatment Next Appt Details Provider Name:Damon Alexander, 02/24/2025 09:15:00 AM, [address] [place] [address] [place], [phone], Provider Name:Damon Alexander, 04/14/2025 09:30:00 AM, [address] [place] [address] [place], [address], Progress Notes * James PROOB:[birth year] (69 yo M)Acc No.[id number]:01/12/2025 Patient: Rachel Ivan JUAREZ :1955 A ge:69 Y S ex:Male [address] [place] [address] * true * Date: Generated for Sridevi chiang/Mick/Robitting on: 0 02/02/2025 09:06 AM EDT
--- NOTE | 2025-02-02 08:38 | MHC.OFFVIS ---
Vital Signs 02/02/25 08:50 Height 5 ft 9 in Weight 222 lb BMI 32.8 Intake Visit Reasons: OV-left shoulder s/p falling last inj 08/02/24 Intake Note: Ivan is a 68 right hand dominant male who presents today for a follow up of his Left Shoulder. Injury while [place] in December. At his last visit on 08/03/23 we injected the left shoulder. He reports that this injection was helpful for more than three months, since then this pain has returned. He continues to have limited ROM. Allergies No Known Allergies (NKA) Allergy (Verified 11/30/24 08:37) HPI HPI OV-left shoulder s/p falling last inj 08/02/24: Details: Ivan is a 68 right hand dominant male who presents today for a follow up of his Left Shoulder. Injury while [place] in December. At his last visit on 08/03/23 we injected the left shoulder. He reports that this injection was helpful for more than three months, since then this pain has returned. He continues to have limited ROM. He describes benefitting tremendously from the last shoulder injection. 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 Physical Exam Exam Exam: Pleasant gentleman in no acute distress 30/90/130/L5 4+/5 empty can Negative lift-off Positive Man/Neer Vital Signs: BMI result Body Mass Index 32.8 Const General: no acute distress, alert and awake Orientation/consciousness: patient oriented x3 HEENT Head: Yes normocephalic and Yes atraumatic Eyes General: appearance normal, both eyes and all related structures Alignment and Position: alignment normal Conjunctivae: conjunctivae normal EOM: EOMs intact bilaterally Neck Neck: Yes normal visual inspection and Yes trachea midline Resp Other: No rerpiratory distress Effort & Inspection: normal respiratory effort and able to speak in complete sentences Cardio Other: Palpable radial pulse with no appreciable rythmic abnormalities Jugular venous distension: no JVD GI Other: No abdominal distension Back/Spine/Pelvis Cervical Spine: normal cervical lordosis and cervical ROM normal Skin General skin exam: turgor normal Rashes: no rashes Neuro General: patient oriented x3 Psych Appearance: grossly normal Affect: normal affect Attitude: cooperative Office Procedures Joint Inj/Aspir; Non-Pain Clin Joint Injection/Drain Details: Injected 1 mL of Decadron and 3 mL 1% lidocaine and 3 mL of 0.25% Marcaine. Site was prepped using aseptic technique. Patient tolerated the procedure well. Shoulders, Hips, Knees, Shoulder Injection Large joint : Left Shoulder Coding Procedure code (CPT) selection complete Assessment & Plan Assessment & Plan (1) Dysfunction of left rotator cuff: Code(s): M67.912 - Unspecified disorder of synovium and tendon, left shoulder Category: Medical Plan: This is a 69-year-old with dysfunction of his left rotator cuff. Injections have been helpful and I injected his shoulder again today. I also ordered an MRI as he is pretty weak in abduction I suspect he has underlying rotator cuff arthropathy. Coding Level of Care Code Est Pt Level 3 (27750) Diagnoses Dysfunction of left rotator cuff M67.912 CPT Codes Shoulders, Hips, Knees, - Shoulder Injection Large joint : Left Shoulder ([id number])
[2025-02-02 08:50] VITALS: BMI 32.8
--- OUTSIDE RECORDS SUMMARY | 2025-02-02 09:07 | XMS_ITS | Patient Health Record ---
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 Panel Fa st Reviewed date:04/11/2024 09:48:47 AM Interpretation: Performing Lab:[facility], [address] [place] [phone] Notes/Report: Sodium 142 135-145 mmol/L Potassium 5.2 3.3-5.1 mmol/L Chloride 106 96-108 mmol/L Carbon Dioxide 26 22-29 mmol/L Anion Gap 15 12-20 Blood Urea Nitrogen 16 9-16 mg/dL Creatinine 0.93 0.5-1.4 mg/dL Estimated Glomerular Filt Rate > 60 NOTE: For -[place] individuals, multiply the result by 1.210. Chronic [...] Panel Reviewed date:04/11/2024 09:48:47 AM Interpretation: Performing Lab:[address] [address] Notes/Report: Triglycerides 190 <150 mg/dL Desirable Triglyceride: [...] Antigen Reviewed date:04/11/2024 09:48:47 AM Interpretation: Performing Lab:[facility], [address] [place] [phone] Notes/Report: Prostate Specific Antigen 1.17 <0.05-4.0 ng/mL PSA methodology: [employer] Alinity i Chemiluminescent Microparticle Immunoassay (CMIA) Microalbumin, Random Reviewed date:04/11/2024 09:48:47 AM Interpretation: Performing Lab:[address] [address] Notes/Report: Creatinine Urine 143.78 Microalbumin Urine 23.0 Microalbum/Creatinine Ratio Ur 15.9 <30 ug/mg cr Albumin/Creatinine Ratio Reference Ranges: Normal: < 30 ug/mg creatinine Microalbuminuria: 30 - 300 ug/mg creatinine Clinical Albuminuria: > 300 ug/mg creatinine Hemoglobin A1c Reviewed date:04/11/2024 09:48:47 AM Interpretation: Performing Lab:[facility], [address] [place] [phone] Notes/Report: Hemoglobin A1c % 5.2 <6.0 % [...] average glucose, using the formula of the U1R-Fxrxywt Average Glucose study (ADAG), Diabetes Care, Vol.31,#8, 2007 Complete Blood Count Auto Di ff Reviewed date:12/27/2024 09:58:12 AM Interpretation: Performing Lab:[facility], [address] [place] [phone] Notes/Report: White Blood Count 5.2 4.8-10.8 X10*3/uL Red Blood Count 4.10 4.60-5.80 X10*6/uL Hemoglobin 13.5 14.0-18.0 g/dl Hematocrit 39.4 42.0-52.0 % Mean Corpuscular Volume 96.1 80.0-98.0 fL Mean Corpuscular Hemoglobin 32.9 27.0-33.0 pg Mean Corpuscular HGB Conc 34.3 31.0-36.0 g/dl Red Cell Distribution Width 14.1 11.0-16.0 % Platelet Count 192 160-400 X10*3/uL Mean Platelet Volume 9.8 9.4-12.4 fL Neutrophils Percent Auto 52.2 45-73 % Imm Gran Pct Auto 0.2 0.0-0.4 % Lymphocytes Percent Auto 30.3 20-40 % Monocytes Percent Auto 13.6 2-11 % Eosinophils Percent Auto 3.1 0-4 % Basophils Percent Auto 0.6 0-2 % NRBC Pct Auto 0.0 0.0-0.2 /100WBC Neutrophils Absolute Auto 2.7 2.0-8.3 x10*3/u L Imm Gran Abs Auto 0.01 0.00-0.03 X10*3/uL Lymphocytes Absolute Auto 1.6 1.2-4.9 X10*3/u L Monocytes Absolute Auto 0.7 0.1-1.2 X10*3/uL Eosinophils Absolute Auto 0.2 0.0-0.4 X10*3/u L Basophils Absolute Auto 0.0 0.0-0.2 X10*3/uL NRBC Abs Auto 0.000 0.0-0.012 X10*3/uL Comprehensive [place]. Panel Fa st Reviewed date:12/27/2024 09:58:12 AM Interpretation: Performing Lab:[address] [address] Notes/Report: Sodium 141 135-145 mmol/L Potassium 5.4 3.3-5.1 mmol/L Chloride 109 96-108 mmol/L Carbon Dioxide 27 22-29 mmol/L Anion Gap 10 12-20 Blood Urea Nitrogen 19 9-16 mg/dL Creatinine 0.99 0.5-1.4 mg/dL Estimated Glomerular Filt Rate > 60 Chronic Kidney Disease: Estimated GFR < 60 mL/min/1.73m2 Severe Kidney Disease: Estimated GFR < 15 mL/min/1.73m2 Glucose Fasting 97 60-99 mg/dL Calcium 9.1 8.4-10.2 mg/dL Bilirubin Total 1.0 0.0-1.0 mg/dL Aspartate Amino Transferase 23 5-37 U/L Alanine Aminotransferase 23 0-40 U/L Total Protein 7.5 6.5-8.0 g/dL Albumin Level 4.5 3.5-5.0 g/dL Alkaline Phosphatase 51 39-117 U/L Lipid Panel Reviewed date:12/27/2024 09:58:12 AM Interpretation: Performing Lab:[address] [address] Notes/Report: Triglycerides 181 <150 mg/dL Desirable Triglyceride: less than 150 mg/dL Borderline High Triglyceride 150-199 mg/dL High Triglyceride: 200-499 mg/dL Very High Triglyceride: greater than or equal to 5OO mg/dL Cholesterol 159 <200 mg/dL Desirable Cholesterol: less than 200 mg/dL Borderline High Cholesterol: 200-239 mg/dL High Cholesterol: greater than 239 mg/dL LDL Cholesterol Calculated 78 <100 mg/dL Desirable LDL: less than 100 mg/dL Near Optimal/Above Optimal LDL: 110-129 mg/dL Borderline High LDL: 130-159 mg/dL High LDL: 160-189 mg/dL Very High LDL: greater than or equal to 190 mg/dL HDL Cholesterol 45 >40 mg/dL Desirable HDL: greater than 40 mg/dL Note: This HDL assay may give artificially low results in patients with liver disease. Prostate Specific Antigen Reviewed date:12/27/2024 09:58:12 AM Interpretation: Performing Lab:[address] [address] Notes/Report: Prostate Specific Antigen 0.21 <0.05-4.0 ng/mL PSA methodology: [employer] Alinity i Chemiluminescent Microparticle Immunoassay (CMIA) Microalbumin, Random Reviewed date:12/27/2024 09:58:12 AM Interpretation: Performing Lab:[address] [address] Notes/Report: Creatinine Urine 105.09 Microalbumin Urine 16.0 Microalbum/Creatinine Ratio Ur 15.2 <30 ug/mg cr Albumin/Creatinine Ratio Reference Ranges: Normal: < 30 ug/mg creatinine Microalbuminuria: 30 - 300 ug/mg creatinine Clinical Albuminuria: > 300 ug/mg creatinine Hemoglobin A1c Reviewed date:12/27/2024 09:58:12 AM Interpretation: Performing Lab:[address] [address] Notes/Report: Hemoglobin A1c % 5.2 <6.0 % [...] average glucose, using the formula of the O3L-Ptpgrhk Average Glucose study (ADAG), Diabetes Care, Vol.31,#8, 2007 Reason For Referral Reason Evaluate and Treat Lumbar Back Pain Diagnosis 1 Acute midline low ba ck pain without sciatica (M54.50) Diagnosis 2 Lumbar back pain (M5 4.50) Referral Organization Damon Alexander III, MD Referring Provider First Name Damon Referring Provider Last Name Benjamin Referring Provider Speciality Internal M edicine Referred Organization [facility] nter Referred Provider [facility] [employer] [facility], [facility] Referred Address [address] [place] [address],[place], [id number], Referred Provider Specialty Physical [employer] Notes Brooke Ricardo 06/13/2024 04:34:06 PM > Referral faxed with progress note, Brooke Ricardo 09/26/2024 03:17:53 PM > Office stated they have reached out to patient and patient stated he is doing better and does not need physical therapy. Referral Priority Routine Medications Medication SIG (Take, Route, Frequency, Duration) Notes Start Date End Date Status Fish Oil 1000 MG 1 capsule with a yao l Orally Once a day Active Adult Aspirin EC Low Strength 81 MG 1 tablet Orally Once a day Active NexampTouch Delica Lancets 30G - as directed Test blood sugar Thursday, Thursday and thursday Active OneTouch Test - as directed In Vitro Check blood glucose on Thursday, Thursday and Thursday Active Simvastatin 40 MG TAKE 1 TABLET BY MOUTH EVERYDAY AT BEDTIME Active Ozempic (0.25 or 0.5 MG/DOSE) 2 MG/3ML 0.5mg once a week (increased from 0.25mg) Subcutaneous once a week for four weeks DX: Diabetes E 11.9 and Obesity E66.1 12/02/2023 Active Lyrica 75 MG 1 capsule Orally twice a day Active metFORMIN HCl 500 MG TAKE 1 TABLET BY MOUTH EVERY DAY Active Lisinopril 40 MG TAKE 1 TABLET BY MOUTH EVERY DAY Active NexampTouch Ultra System w/Device Check blood glucose on Thursday, Thursday, and Thursday06/15/2023 Active OneTouch Delica Lancing Dev Check blood glucose Thursday, Thursday and Thursday06/15/2023 Active Immunizations Vaccine Route Administration Date Status [...] This w as given to pt by [facility] pharmacy [id number] Unknown 02/26/2023 Administered Tdap [...] Problem Status W/U Status Risk Notes Problem Obesity (390662796) Obesity (BMI 30-39.9) (278.00) Active confirmed Problem 044637459 Obesity (E66.9) Active confirmed He has decided to stop the Ozempic. We made a plan to lose weight at a rate of 1 pound per week through physical activity a healthy diet. Problem 81256484 Type 2 diabetes mellitus without complications (E11.9) Active confirmed His hemoglobin A1c is quite low as is his fasting glucose. He has been compliant with his treatment.. No change in his regimen was made. He was given A requisition for blood work to be done in the near future to include a hemoglobin A1c microalbumin and fasting glucose. Problem 93758773 Tinea corporis (B35.4) Active confirmed The rash has resolved. Problem Low back pain (559829369) Low back pain (M54.5) Active confirmed Problem Benign prostatic hyperplasia (303378334) BPH (benign prostatic hyperplasia) (N40.0) Active confirmed He has been rising from sleep once a night to urinate. We discussed lifestyle modifications he could make to reduce nocturia. Problem 59580088 Essential hypertension (I10) Active confirmed His blood pressure is currently stable. I have strongly recommended aggressive weight loss and sodium restriction. He will return to the office regularly for measurement of his vital signs. 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 His memory will be tested next month and action taken if necessary. Problem 780606979 Hyperlipidemia type II (E78.0) Active confirmed His lipids a re currently stable and controlled and no change in his regimen was needed. Problem 12962782 Diabetic polyneuropathy associated with type 2 diabetes mellitus (E11.42) Active confirmed He has mild sensory deficits in his lower extremities but is able to conduct all of the activities of daily living.He saw a nneurologist recently for foot pain and was begun on Lyrica 75 mg by mouth twice a day. This has improved the pain some. Problem Pure hypercholesterolemi a (206497879) Hyperlipidemia type II (E78.01) Active confirmed In the near future. He will have a fasting lipid profile done to assess the status of his lipids. Current therapy was continued. We discussed a healthy diet. Problem Low back pain (finding) (843160565) Lumbar back pain (M54.50) Active confirmed He had a laminectomy many years ago for the same problem. This appears to be a disc problem at L5-S1. He was given gabapentin and dexamethasone. An MRI was requested. He was referred to physical therapy. Problem [id number] Recurrent epistaxis (R04.0) Active confirmed He has fitted for recent episodes of epistaxis from the ight nostril.He takes 81 mg of aspirin daily. We discussed how to stop epistaxis. We discussed the effect of aspirin on platelet function. He will put a coating a petroleum jelly on the right side of his nasal septum twice a day for the next week. If bleeding occurs it will not stopped he will go to the emergency room for silver nitrate. Vital Signs Heart Rate 71 /min 12/27/2024 Temperature 98.4 degrees Fahrenheit 12/27/2024 Blood pressure diastolic 73 mm Hg 12/27/2024 Height 69 in 12/27/2024 Blood pressure systolic 119 mm Hg 12/27/2024 Weight 227 lbs 12/27/2024 BMI 33.52 kg/m2 12/27/2024 Encounters Encounter Location Date Provider Diagnosis Damon Alexander III, MD [address] [place] [address] [place] [address] 02/15/2024 Damon Alexander Type 2 diabetes leonardo itus without complications E11.9 ; Essential hypertension I10 ; Obesity E66.9 ; Diabetic polyneuropathy associated with type 2 diabetes mellitus E11.42 ; BPH (benign prostatic hyperplasia) N40.0 and Hyperlipidemia type II E78.01 Damon Alexander III, MD [address] [place] [address] [place] [address] 04/11/2024 Damon Alexander Type 2 diabetes leonardo itus without complications E11.9 ; Obesity E66.9 ; Essential hypertension I10 ; Hyperlipidemia type II E78.0 ; Tinea corporis B35.4 and BPH (benign prostatic hyperplasia) N40.0 Damon Alexander III, MD [address] [place] [address] [place] [address] 06/08/2024 Damon Alexander Type 2 diabetes leonardo itus without complications E11.9 ; Lumbar back pain M54.50 ; Essential hypertension I10 ; Obesity E66.9 ; Hyperlipidemia type II E78.0 and BPH (benign prostatic hyperplasia) N40.0 Damon Alexander III, MD [address] [place] [address] [place] [address] 06/15/2024 Damon Alexander Type 2 diabetes leonardo itus without complications E11.9 ; Obesity E66.9 ; Essential hypertension I10 ; Hyperlipidemia type II E78.0 ; BPH (benign prostatic hyperplasia) N40.0 and Low back pain M54.5 Damon Alexander III, MD [address] [place] [address] [place] [address] 07/06/2024 Damon Alexander Type 2 diabetes leonardo itus without complications E11.9 ; Low back pain M54.5 ; Recurrent epistaxis R04.0 ; Essential hypertension I10 and Obesity E66.9 Damon Alexander III, MD [address] [place] [address] [place] [address] 08/19/2024 Damon Alexander Type 2 diabetes leonardo itus without complications E11.9 ; Diabetic polyneuropathy associated with type 2 diabetes mellitus E11.42 ; Essential hypertension I10 ; Obesity E66.9 ; Lumbar back pain M54.50 ; BPH (benign prostatic hyperplasia) N40.0 and Hyperlipidemia type II E78.01 Damon Alexander III, MD [address] [place] [address] [place] [address] 09/23/2024 Damon Alexander Type 2 diabetes leonardo itus without complications E11.9 ; Essential hypertension I10 ; Obesity E66.9 ; Lumbar back pain M54.50 ; Hyperlipidemia type II E78.01 and Memory loss R41.3 Damon Alexander III, MD [address] [place] [address] [place] [address] 10/20/2024 Damon Alexander Type 2 diabetes leonardo itus without complications E11.9 ; Obesity E66.9 ; Essential hypertension I10 ; Lumbar back pain M54.50 and BPH (benign prostatic hyperplasia) N40.0 Damon Alexander III, MD [address] [place] [address] [place] [address] 11/15/2024 Damon Alexander Type 2 diabetes leonardo itus without complications E11.9 ; Obesity E66.9 ; BPH (benign prostatic hyperplasia) N40.0 ; Hyperlipidemia type II E78.01 and Lumbar back pain M54.50 Damon Alexander III, MD [address] [place] [address] [place] [address] 12/27/2024 Damon Alexander Type 2 diabetes leonardo itus without complications E11.9 ; Hyperlipidemia type II E78.0 ; Obesity E66.9 ; Essential hypertension I10 ; BPH (benign prostatic hyperplasia) N40.0 and Lumbar back pain M54.50 Damon Alexander III, MD [address] [place] [address] [place] [address] 05/03/2024 Damon Alexander III, MD [address] [place] [address] [place] [address] 05/17/2024 Damon Alexander III, MD [address] [place] [address] [place] [address] 06/10/2024 Damon Alexander III, MD [address] [place] [address] [place] [address] 06/17/2024 Damon Alexander III, MD [address] [place] [address] [place] [address] 07/12/2024 Damon Alexander Type 2 diabetes leonardo itus without complications E11.9 Damon Alexander III, MD [address] [place] [address] [place] [address] 08/30/2024 Damon Alexander III, MD [address] [place] [address] [place] [address] 10/05/2024 Damon Alexander III, MD [address] [place] [address] [place] [address] 10/11/2024 Damon Alexander III, MD [address] [place] [address] [place] [address] 01/12/2025 Damon Alexander Assessments Encounter Date Diagnosis (ICD Code) Assessment Notes Treat ment Notes Treatment Clinical Notes 02/15/2024 Type 2 diabetes mellitus without complications [...] appointment to come to the office. 06/08/2024 Type 2 diabetes mellitus without complications (ICD-10 - E11.9) He has been compliant with diet and therapy. His hemoglobin A1c was 5.2. His fasting glucose was 115. No change in his regimen was made. He was given an appointment to come to the office. 06/08/2024 Lumbar back pain (ICD-10 - M54.50) He had a laminectomy many years ago for the same problem. This appears to be a disc problem at L5-S1. He was given gabapentin and dexamethasone. An MRI was requested. He was referred to physical therapy. 06/15/2024 Obesity (ICD-10 - E66.9) His weight is stable. His body mass index is 32. We discussed diet and nutrition. We reviewed a diabetic weight loss diet. We made a plan to lose weight at a rate of one half of a pound per week. 06/15/2024 Type 2 diabetes mellitus without complications (ICD-10 - E11.9) He has been compliant with diet and therapy. His hemoglobin A1c was 5.2. His fasting glucose was 115. No change in his regimen was made. He was given an appointment to come to the office. 07/06/2024 Type 2 diabetes mellitus without complications (ICD-10 - E11.9) He has been compliant with diet and therapy. His hemoglobin A1c was 5.2. His fasting glucose was 115. No change in his regimen was made. He was given an appointment to come to the office. 07/06/2024 Low back pain (ICD-1 0 - M54.5) 08/19/2024 Type 2 diabetes mellitus without complications (ICD-10 - E11.9) He has been compliant with diet and therapy. His hemoglobin A1c was 5.2 In April 2024. His fasting glucose was 115. No change in his regimen was made. He was given an appointment to come to the office. 08/19/2024 Diabetic polyneuropathy associated with type 2 diabetes mellitus (ICD-10 - E11.42) He has mild sensory deficits in his lower extremities but is able to conduct all of the activities of daily living.He saw a nneurologist recently for foot pain and was begun on Lyrica 75 mg by mouth twice a day. This has improved the pain some. 09/23/2024 Type 2 diabetes mellitus without complications (ICD-10 - E11.9) He has been compliant with diet and therapy. His hemoglobin A1c was 5.2 In April 2024. His fasting glucose was 115. No change in his regimen was made. He was given an appointment to come to the office after comprehensive blood work to evaluate his A1c. 09/23/2024 Essential hypertension (ICD-10 - I10) His blood pressure is currently stable at 139/71. I have strongly recommended aggressive weight loss and sodium restriction. He will return to the office regularly for measurement of his vital signs. 10/20/2024 Obesity (ICD-10 - E66.9) His weight is stable. His body mass index is 32. We discussed diet and nutrition. We reviewed a diabetic weight loss diet. We made a plan to lose weight at a rate of one half of a pound per week.He was continued on the same dose of Ozempic. 10/20/2024 Type 2 diabetes mellitus without complications [...] in his regimen was made today. 11/15/2024 Type 2 diabetes mellitus without complications (ICD-10 - E11.9) He has been compliant with diet and therapy. His hemoglobin A1c was 5.2 In April 2024. His fasting glucose was 115. No change in his regimen was made. He was given A requisition for blood work to be done in the near future to include a hemoglobin A1c microalbumin and fasting glucose. 12/27/2024 Type 2 diabetes mellitus without complications [...] no change in his regimen was needed. 07/12/2024 Type 2 diabetes mellitus without complications (ICD-10 - E11.9) He has been compliant with diet and therapy. His hemoglobin A1c was 5.2. His fasting glucose was 115. No change in his regimen was made. He was given an appointment to come to the office. 02/15/2024 Obesity (ICD-10 - E66.9) He has [...] regularly for measurement of his vital signs. 06/08/2024 Essential hypertension (ICD-10 - I10) His blood pressure is currently stable. I have strongly recommended aggressive weight loss and sodium restriction. He will return to the office regularly for measurement of his vital signs. 06/15/2024 Essential hypertension (ICD-10 - I10) His blood pressure is currently stable. I have strongly recommended aggressive weight loss and sodium restriction. He will return to the office regularly for measurement of his vital signs. 07/06/2024 Recurrent epistaxis (ICD-10 - R04.0) He has fitted for recent episodes of epistaxis from the ight nostril.He takes 81 mg of aspirin daily. We discussed how to stop epistaxis. We discussed the effect of aspirin on platelet function. He will put a coating a petroleum jelly on the right side of his nasal septum twice a day for the next week. If bleeding occurs it will not stopped he will go to the emergency room for silver nitrate. 08/19/2024 Essential hypertension (ICD-10 - I10) His blood pressure is currently stable at 139/71. I have strongly recommended aggressive weight loss and sodium restriction. He will return to the office regularly for measurement of his vital signs. 09/23/2024 Obesity (ICD-10 - E66.9) His weight is stable. His body mass index is 32. We discussed diet and nutrition. We reviewed a diabetic weight loss diet. We made a plan to lose weight at a rate of one half of a pound per week.He has gained a pound. 10/20/2024 Essential hypertension (ICD-10 - I10) His blood pressure is currently stable at 139/71. I have strongly recommended aggressive weight loss and sodium restriction. He will return to the office regularly for measurement of his vital signs. 11/15/2024 BPH (benign prostati c hyperplasia) (ICD-10 - N40.0) He has been rising from sleep once a night to urinate. We discussed lifestyle modifications he could make to reduce nocturia. 12/27/2024 Obesity (ICD-10 - E66.9) He has decided to stop the Ozempic. We made a plan to lose weight at a rate of 1 pound per week through physical activity a healthy diet. 02/15/2024 Diabetic polyneuropathy associated with type 2 [...] animal fat combined with aggressive weight loss. 06/08/2024 Obesity (ICD-10 - E66.9) His weight is stable. His body mass index is 32. We discussed diet and nutrition. We reviewed a diabetic weight loss diet. We made a plan to lose weight at a rate of one half of a pound per week. 06/15/2024 Hyperlipidemia type II (ICD-10 - E78.0) His current fasting lipid profile shows good control of his lipids. I recommended a diet low in animal fat combined with aggressive weight loss. 07/06/2024 Essential hypertension (ICD-10 - I10) His blood pressure is currently stable. I have strongly recommended aggressive weight loss and sodium restriction. He will return to the office regularly for measurement of his vital signs. 08/19/2024 Obesity (ICD-10 - E66.9) His weight is stable. His body mass index is 32. We discussed diet and nutrition. We reviewed a diabetic weight loss diet. We made a plan to lose weight at a rate of one half of a pound per week. 09/23/2024 Lumbar back pain (ICD-10 - M54.50) He had a laminectomy many years ago for the same problem. This appears to be a disc problem at L5-S1. He was given gabapentin and dexamethasone. An MRI was requested. He was referred to physical therapy. 10/20/2024 Lumbar back pain (ICD-10 - M54.50) He had a laminectomy many years ago for the same problem. This appears to be a disc problem at L5-S1. He was given gabapentin and dexamethasone. An MRI was requested. He was referred to physical therapy. 11/15/2024 Hyperlipidemia type II (ICD-10 - E78.01) In the near future. He will have a fasting lipid profile done to assess the status of his lipids. Current therapy was continued. We discussed a healthy diet. 12/27/2024 Essential hypertension (ICD-10 - I10) His blood pressure is currently stable. I have strongly recommended aggressive weight loss and sodium restriction. He will return to the office regularly for measurement of his vital signs. 02/15/2024 BPH (benign prostati c hyperplasia) (ICD-10 - N40.0) He says he drinks fluids copiously after dinner and rises to her 3 times a night to urinate. We have addressed this issue by discussing lifestyle modification. 04/11/2024 Tinea corporis (ICD-10 - B35.4) The rash has resolved. 06/08/2024 Hyperlipidemia type II (ICD-10 - E78.0) His current fasting lipid profile shows good control of his lipids. I recommended a diet low in animal fat combined with aggressive weight loss. 06/15/2024 BPH (benign prostati c hyperplasia) (ICD-10 - N40.0) He says he drinks fluids copiously after dinner and rises to her 3 times a night to urinate. We have addressed this issue by discussing lifestyle modification. 07/06/2024 Obesity (ICD-10 - E66.9) His weight is stable. His body mass index is 32. We discussed diet and nutrition. We reviewed a diabetic weight loss diet. We made a plan to lose weight at a rate of one half of a pound per week. 08/19/2024 Lumbar back pain (ICD-10 - M54.50) He had a laminectomy many years ago for the same problem. This appears to be a disc problem at L5-S1. He was given gabapentin and dexamethasone. An MRI was requested. He was referred to physical therapy. 09/23/2024 Hyperlipidemia type II (ICD-10 - E78.01) His cholesterol values are in near target range. His triglycerides are slightly elevated. I strongly recommended a diet low in fat and calories and concentrated sweets. 10/20/2024 BPH (benign prostati c hyperplasia) (ICD-10 - N40.0) He says he drinks fluids copiously after dinner and rises to her 3 times a night to urinate. We have addressed this issue by discussing lifestyle modification. 11/15/2024 Lumbar back pain (ICD-10 - M54.50) He had a laminectomy many years ago for the same problem. This appears to be a disc problem at L5-S1. He was given gabapentin and dexamethasone. An MRI was requested. He was referred to physical therapy. 12/27/2024 BPH (benign prostati c hyperplasia) (ICD-10 - N40.0) He has been rising from sleep once a night to urinate. We discussed lifestyle modifications he could make to reduce nocturia. 02/15/2024 Hyperlipidemia type II (ICD-10 - E78.01) [...] addressed this issue by discussing lifestyle modification. 06/08/2024 BPH (benign prostati c hyperplasia) (ICD-10 - N40.0) He says he drinks fluids copiously after dinner and rises to her 3 times a night to urinate. We have addressed this issue by discussing lifestyle modification. 06/15/2024 Low back pain (ICD-1 0 - M54.5) 08/19/2024 BPH (benign prostati c hyperplasia) (ICD-10 - N40.0) He says he drinks fluids copiously after dinner and rises to her 3 times a night to urinate. We have addressed this issue by discussing lifestyle modification. 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 His memory will be tested next month and action taken if necessary. 12/27/2024 Lumbar back pain (ICD-10 - M54.50) He had a laminectomy many years ago for the same problem. This appears to be a disc problem at L5-S1. He was given gabapentin and dexamethasone. An MRI was requested. He was referred to physical therapy. 08/19/2024 Hyperlipidemia type II (ICD-10 - E78.01) His cholesterol values are in near target range. His triglycerides are slightly elevated. I strongly recommended a diet low in fat and calories and concentrated sweets. Plan Of Treatment Pending Test Test Name Order Date PROFILE, FASTING (COMPREHENSIVE METABOLI C) 12/02/2023 PROFILE, FASTING (COMPREHENSIVE METABOLI C) 01/09/2022 PROFILE, FASTING (COMPREHENSIVE METABOLI C) 08/08/2021 PROFILE, FASTING (COMPREHENSIVE METABOLI C) 04/11/2019 PROFILE, FASTING (COMPREHENSIVE METABOLI C) 04/08/2023 PROFILE, FASTING (COMPREHENSIVE METABOLI C) 01/26/2020 PROFILE, FASTING (COMPREHENSIVE METABOLI C) 08/11/2019 PROFILE, FASTING (COMPREHENSIVE METABOLI C) 05/09/2021 PROFILE, FASTING (COMPREHENSIVE METABOLI C) 02/07/2021 PROFILE, FASTING (COMPREHENSIVE METABOLI C) 10/02/2022 PROFILE, FASTING (COMPREHENSIVE METABOLI C) 11/15/2024 PROFILE, FASTING (COMPREHENSIVE METABOLI C) 10/25/2020 PROFILE, FASTING (COMPREHENSIVE METABOLI C) 04/02/2022 PROFILE, FASTING (COMPREHENSIVE METABOLI C) 07/19/2020 PROFILE, RANDOM (COMPREHENSIVE METABOLIC ) 04/19/2020 PROFILE, RANDOM (COMPREHENSIVE METABOLIC ) 08/12/2023 PROFILE, RANDOM (COMPREHENSIVE METABOLIC ) 02/12/2023 PROFILE, RANDOM (COMPREHENSIVE METABOLIC ) 06/18/2022 HEMOGLOBIN A1C (GLYCOHEMOGLOBIN) 023 HEMOGLOBIN A1C (GLYCOHEMOGLOBIN) 021 HEMOGLOBIN A1C (GLYCOHEMOGLOBIN) 020 HEMOGLOBIN A1C (GLYCOHEMOGLOBIN) 022 HEMOGLOBIN A1C (GLYCOHEMOGLOBIN) 019 HEMOGLOBIN A1C (GLYCOHEMOGLOBIN) 020 HEMOGLOBIN A1C (GLYCOHEMOGLOBIN) 020 HEMOGLOBIN A1C (GLYCOHEMOGLOBIN) 021 HEMOGLOBIN A1C (GLYCOHEMOGLOBIN) 023 HEMOGLOBIN A1C (GLYCOHEMOGLOBIN) 021 HEMOGLOBIN A1C (GLYCOHEMOGLOBIN) 023 HEMOGLOBIN A1C (GLYCOHEMOGLOBIN) 021 LIPID PANEL 10/02/2022 LIPID PANEL 10/25/2020 LIPID PANEL 06/18/2022 LIPID PANEL 07/19/2020 LIPID PANEL 01/09/2022 LIPID PANEL 04/19/2020 LIPID PANEL 04/11/2019 LIPID PANEL 01/26/2020 LIPID PANEL 08/11/2019 LIPID PANEL 02/12/2023 PSA, TOTAL 12/02/2023 PSA, TOTAL 11/15/2024 PSA, TOTAL 04/11/2019 PSA, TOTAL 04/02/2022 MICROALBUMIN, RANDOM 08/11/2019 MICROALBUMIN, RANDOM 04/11/2019 MICROALBUMIN, RANDOM 10/02/2022 MICROALBUMIN, RANDOM 10/25/2020 MICROALBUMIN, RANDOM 08/08/2021 MICROALBUMIN, RANDOM 02/07/2021 CBC w DIFF 11/15/2024 CBC w DIFF 04/02/2022 CBC w DIFF 02/12/2023 CBC w DIFF 02/07/2021 CBC w DIFF 08/11/2019 CBC w DIFF 04/11/2019 CBC w DIFF 10/02/2022 CBC w DIFF 10/25/2020 CBC w DIFF 06/18/2022 CBC w DIFF 08/12/2023 CBC w DIFF 07/19/2020 CBC w DIFF 01/09/2022 CBC w DIFF 04/19/2020 CBC w DIFF 08/08/2021 CBC w DIFF 05/09/2021 CBC w DIFF 01/26/2020 CBC WITH AUTO DIFF 12/02/2023 CBC WITH AUTO DIFF 04/08/2023 Lipid Panel 08/08/2021 Lipid Panel 05/09/2021 Lipid Panel 11/15/2024 Lipid Panel 04/02/2022 Lipid Panel 02/07/2021 Lipid Panel 12/02/2023 Lipid Panel 08/12/2023 Lipid Panel 04/08/2023 Vitamin D 25-OH Total 04/02/2022 Microalbumin, Random 11/15/2024 Microalbumin, Random 12/02/2023 Microalbumin, Random 04/08/2023 XR lumbar spine 4V min 06/08/2024 XR sacrum coccyx min 2V 06/08/2024 Hemoglobin A1c 04/08/2023 Hemoglobin A1c 11/15/2024 Hemoglobin A1c 04/02/2022 Hemoglobin A1c 08/12/2023 Hemoglobin A1c 12/02/2023 Next Appt Details Provider Name:Damon Alexander, 02/24/2025 09:15:00 AM, [address] [place] [address] [place], [address], Provider Name:Damon Alexander, 04/14/2025 09:30:00 AM, [address] [place] [address] [place], [address], Insurance Providers Payer Name Payer Address Payer Phone Subscriber Number Group Number Insured Name Patient Relationship to Insured Coverage Start Date Coverage End Date [employer] Medicare [address] [place] [phone] [id number] Ricarda jimenesHanskatherine Self - patient is the insured MEDICARE NGS [address] [place] [phone] [id number] Ricarda jimenesHanskatherine Self - patient is the insured Medical (General) History Medical History History ICD Code hypertension hyperlipidemia fracture right foot obesity adult-onset diabetes mellitus The patient has a history of colonoscopy, which is up to date. He also has a history of tingling in his feet and hearing loss in his right ear. No history Surgical History Surgery Date(Month/Year) Back surgery - date not specified No history Colonoscopy 07/2022 right knee surgery torn 07/2019 colonoscopy, tubular adenoma removed 06/02 018 colonoscopy 2010 neurogenic bladder after disc surgery 20 07 cataract removal - Dr. Dumont right ear surgery age 15 HNP LSS - surgery 2006 Hospitalization History Reason Date(Month/Year) No history
== END 2025-02-02 09:24 | disposition home or self-care (01) ==
LOC: HO.HOS 08:36
PROVIDERS: PCP Internal Medicine Medical Oncology; Visit Provider Orthopaedic Surgery
DX: M67.912 Unspecified disorder of synovium and tendon, left shoulder (principal)
CPT/HCPCS: 20610; 99213

== ENCOUNTER → 2025-02-02 08:35 | Outpatient (BNVA) | payer MEDICARE, SELFPAY | PROVIDERS: PCP Internal Medicine Medical Oncology; Visit Provider Orthopaedic Surgery | DX: M67.912 Unspecified disorder of synovium and tendon, left shoulder (principal) | CPT/HCPCS: 20610; 99212; J0665; J1100; J2003 ==

== ENCOUNTER → 2025-03-03 07:16 | Outpatient (BNV) | payer MEDICARE, SELFPAY | PROVIDERS: PCP Internal Medicine Medical Oncology; Visit Provider Radiology Diagnostic Radiology | DX: M75.122 Complete rotator cuff tear or rupture of left shoulder, not specified as traumatic (principal); M19.012 Primary osteoarthritis, left shoulder; M25.462 Effusion, left knee | CPT/HCPCS: 73221 ==

== ENCOUNTER 2025-03-03 07:21 | Outpatient (REF) | payer MEDICARE, SELFPAY ==
--- OUTSIDE RECORDS SUMMARY | 2024-10-20 06:30 | XMS_ITS ---
Author Organization Damon Alexander III, MD Address [address] [place] [address] Care Team Providers Care Calibration Engineer Name Role Phone Dr. Damon Alexander III Primary Care Provider Allergies Allergen (clinical drug ingredient) Drug/Non Drug Allergy documented on EMR Reaction Allergy Type Onset Date Status No Known Drug Allergy Unknown Drug Allergy Active REASON FOR VISIT Ozempic weight loss program, Type 2 diabetes, Hypertension, Obesity, Lumbar spine pain, Recent recurrent epistaxis Medications Medication SIG (Take, Route, Frequency, Duration) Notes Start Date End Date Status Lyrica 75 MG 1 capsule Orally twice a day Active Simvastatin 40 MG TAKE 1 TABLET BY MOUTH EVERYDAY AT BEDTIME Active metFORMIN HCl 500 MG TAKE 1 TABLET BY MOUTH EVERY DAY Active Lisinopril 40 MG TAKE 1 TABLET BY MOUTH EVERY DAY Active Ozempic (0.25 or 0.5 MG/DOSE) 2 MG/3ML 0.5mg once a week (increased from 0.25mg) Subcutaneous once a week for four weeks DX: Diabetes E 11.9 and Obesity E66.1 12/02/2023 Active OneTouch Delica Lancets 30G - as directed Test blood sugar Thursday, Thursday and thursday Active Fish Oil 1000 MG 1 capsule with a yao l Orally Once a day Active OneTouch Test - as directed In Vitro Check blood glucose on Thursday, Thursday and Thursday Active Adult Aspirin EC Low Strength 81 MG 1 tablet Orally Once a day Active ShopAdvisorTouch Delica Lancing Dev Check blood glucose Thursday, Thursday and Thursday06/15/2023 Active ShopAdvisorTouch Ultra System w/Device Check blood glucose on Thursday, Thursday, and Thursday06/15/2023 Active Social History Tobacco Use: Social History Observation Description Date Details (start date - stop date) Never Smoker NA - NA Sex Assigned At : Social History Observation Description Sex Assigned At Male Tobacco Use/Smoking Question Answer Notes Patient is a nonsmoker Additional Findings: Tobacco Non-User Aggressive non-smoker Vital Signs Temperature 97.5 degrees Fahrenheit 10/21/19 25 Blood pressure systolic 140 mm Hg 10/21/19 25 Blood pressure diastolic 75 mm Hg 025 Heart Rate 59 /min 10/20/2024 Height 69 in 10/20/2024 Weight 224 lbs 10/20/2024 BMI 33.08 kg/m2 10/20/2024 Encounters Encounter Location Date Provider Diagnosis Damon Alexander III, MD [address] [place] [address] [place] [address] 10/20/2024 Damon Alexander Type 2 diabetes mellitus without complications E11.9 ; Obesity E66.9 ; Essential hypertension I10 ; Lumbar back pain M54.50 and BPH (benign prostatic hyperplasia) N40.0 Assessments Encounter Date Diagnosis (ICD Code) Assessment Notes Treat ment Notes Treatment Clinical Notes 10/20/2024 Type 2 diabetes mellitus without complications (ICD-10 - E11.9) He has been compliant with diet and therapy. His hemoglobin A1c was 5.2 In April 2024. His fasting glucose was 115. No change in his regimen was made. He was given A requisition for blood work to be done in the near future to include a hemoglobin A1c microalbumin and fasting glucose. 10/20/2024 Obesity (ICD-10 - E66.9) His weight is stable. His body mass index is 32. We discussed diet and nutrition. We reviewed a diabetic weight loss diet. We made a plan to lose weight at a rate of one half of a pound per week.He was continued on the same dose of Ozempic. 10/20/2024 Essential hypertension (ICD-10 - I10) His blood pressure is currently stable at 139/71. I have strongly recommended aggressive weight loss and sodium restriction. He will return to the office regularly for measurement of his vital signs. 10/20/2024 Lumbar back pain (ICD-10 - M54.50) He had a laminectomy many years ago for the same problem. This appears to be a disc problem at L5-S1. He was given gabapentin and dexamethasone. An MRI was requested. He was referred to physical therapy. 10/20/2024 BPH (benign prostatic hyperplasia) (ICD-10 - N40.0) He says he drinks fluids copiously after dinner and rises to her 3 times a night to urinate. We have addressed this issue by discussing lifestyle modification. Plan Of Treatment Medication Medication Name Sig Start Date Stop Date Notes Lyrica 75 MG 1 capsule Orally twi ce a day Simvastatin 40 MG TAKE 1 TABLET BY NANCY TH EVERYDAY AT BEDTIME metFORMIN HCl 500 MG TAKE 1 TABLET BY MO UTH EVERY DAY Lisinopril 40 MG TAKE 1 TABLET BY NANCY TH EVERY DAY Ozempic (0.25 or 0.5 MG/DOSE) 2 MG/3ML 0.5mg once a week (increased from 0.25mg) Subcutaneous once a week for four weeks 12/02/2023 DX: Diabetes E 11.9 and Obesity E66.1 OneTouch Delica Lancets 30G - as directed Test blood sugar Thursday, Thursday and thursday Fish Oil 1000 MG 1 capsule with a yao l Orally Once a day OneTouch Test - as directed In Vitro Check blood glucose on Thursday, Thursday and Thursday Adult Aspirin EC Low Strength 81 MG 1 tablet Orally Once a day OneTouch Delica Lancing Dev Check blood glucose Thursday, Thursday and Thursday06/15/2023 OneTouch Ultra System w/Device Check blood glucose on Thursday, Thursday, and Thursday06/15/2023 Next Appt Details Follow Up: 4 Weeks, Reason: ov no tests Provider Name:Damon Alexander , 06/15/2025 09:30:00 AM, [address] [place] [address] [address], [place], [address], Progress Notes * James PROOB:[birth year] (69 yo M)Acc No.[id number]:10/20/2024 Progress Notes Patient: Ivan PINZON Provider: Melissa Alexander MD :1955 A ge:69 Y S ex:Male Date:10/20/2024 Address:[id number] Subjective: * Chief Complaints: * O zempic weight loss programType 2 diabetesHypertensionObesityLumbar spine painRecent recurrent epistaxis * HPI: C OVID-19 Screening: He is being seen once a month while he is on the Ozempic to regulate the dose and monitor his weight loss. He has had 2 doses so far. His fasting glucose yesterday was 119. His back is feeling much better. He has pain in his left knee and left shoulder which have been injured in the past. He is under the care of orthopedics for this. He has tolerated the injected medicine without side effects. He has had 2 episodes of nose bleeding recently from the right nostril. On examination there was an apparent polyp in the anterior right nares at about 11:00. The septum was intact. He was referred to ENT for further evaluation. He was given advice to use fluticasone. Questions H ave you had any new onset fever, chills, cough, congestion, sore throat, shortness of breath, muscle aches? N o * ROS: G eneral/Constitutional: pain S houlders and knees. C hills d enies. F atigue a dmits. F ever d enies. E NT: Decreased hearing d enies. R espiratory: Cough d enies. C ardiovascular: Chest pain with exertion d enies. D yspnea on exertion?denies. S hortness of breath d enies. G astrointestinal: Constipation d enies. D ecreased appetite d enies.?Diarrhea d enies. H eartburn d enies. N ausea d enies. R ectal bleeding?denies. V omiting d enies. H ematology: bruising d enies. p etechiae d enies. S wollen glands n one have been noted. G enitourinary: Frequent urination d enies. M usculoskeletal: Muscle aches d enies. P ainful joints S houlders, knees and lumbar spine. S ciatica d enies. W eakness d enies. S kin: Itching d enies. R kannan d enies. S kin lesion(s)?denies. N eurologic: Difficulty speaking d enies. D izziness d enies.?Headache d enies. L ow back pain d enies. P sychiatric: Depressed mood d enies. * Medical History: * Surgical History: H INTERNAL REVIEW AND AUDIT COMPLIANCE LSS - surgery 2007right ear surgery age 15 cataract removal - Dr. Dumont neurogenic bladder after disc surgery 2006colonoscopy 2010colonoscopy, tubular adenoma removed 06/2017right knee surgery torn 07/2019Colonoscopy 07/2022No history Back surgery - date not specified * Hospitalization/Major Diagno stic Procedure: N o history * Family History: F ather: 75 yrs, cardiomyopathy. M other: 70 yrs, myocardial infarction.?Siblings: alive. 5 brother(s) , 2 sister(s) . . He has no children. One brother of a myocardial infarct. Three brothers ae living who have had myocardial infarcts. * Social History: T obacco Use: T obacco Use/Smoking P atflorecita is a n onsmoker A dditional Findings: Tobacco Non-User A ggressive non-smoker Smooth quinones is and not working. He was born in [facility], [place]. He has no toxic exposures. The patient is retired and has been for eight years. He is careful while driving. The patient lives with his brother and does housework and spends time in his garage. He also drives his brother around as his brother no longer drives. * Medications: T akingSimvastatin 40 MG Tablet TAKE 1 TABLET BY MOUTH EVERYDAY AT BEDTIME Ozempic (0.25 or 0.5 MG/DOSE) 2 MG/3ML Solution Pen-injector 0.5mg once a week (increased from 0.25mg) Subcutaneous once a week for four weeks , Notes to Pharmacist: DX: Diabetes E 11.9 and Obesity E66.1, Notes: 09/23/[address] Alexander Ozempic increased to 0.5mg once a week starting 09/26/2024Lisinopril 40 MG Tablet TAKE 1 TABLET BY MOUTH EVERY DAY OneTouch Ultra System w/Device Kit Check blood glucose on Thursday, Thursday, and Thursday OneTouch Delica Lancing Dev Check blood glucose Thursday, Thursday and Thursday OneTouch Delica Lancets 30G - Miscellaneous as directed Test blood sugar Thursday, Thursday and thursday OneTouch Test - Strip as directed In Vitro Check blood glucose on Thursday, Thursday and Thursday Fish Oil 1000 MG Capsule 1 capsule with a meal Orally Once a day Adult Aspirin EC Low Strength 81 MG Tablet Delayed Release 1 tablet Orally Once a day Lyrica 75 MG Capsule 1 capsule Orally twice a day metFORMIN HCl 500 MG Tablet TAKE 1 TABLET BY MOUTH EVERY DAY Medication List reviewed and reconciled with the patientTaking Simvastatin 40 MG Tablet TAKE 1 TABLET BY MOUTH EVERYDAY AT BEDTIME Taking Ozempic (0.25 or 0.5 MG/DOSE) 2 MG/3ML Solution Pen-injector 0.5mg once a week (increased from 0.25mg) Subcutaneous once a week for four weeks , Notes to Pharmacist: DX: Diabetes E 11.9 and Obesity E66.1, Notes: 09/23/[address] Alexander Ozempic increased to 0.5mg once a week starting 09/26/2024Taking Lisinopril 40 MG Tablet TAKE 1 TABLET BY MOUTH EVERY DAY Taking OneTouch Ultra System w/Device Kit Check blood glucose on Thursday, Thursday, and Thursday Taking OneTouch Delica Lancing Dev Check blood glucose Thursday, Thursday and Thursday Taking OneTouch Delica Lancets 30G - Miscellaneous as directed Test blood sugar Thursday, Thursday and thursday Taking OneTouch Test - Strip as directed In Vitro Check blood glucose on Thursday, Thursday and Thursday Taking Fish Oil 1000 MG Capsule 1 capsule with a meal Orally Once a day Taking Adult Aspirin EC Low Strength 81 MG Tablet Delayed Release 1 tablet Orally Once a day Taking Lyrica 75 MG Capsule 1 capsule Orally twice a day Taking metFORMIN HCl 500 MG Tablet TAKE 1 TABLET BY MOUTH EVERY DAY Medication List reviewed and reconciled with the patient * Allergies: N o Known Drug Allergyno[Allergies Verified] Objective: * Vitals: H t: 69, Wt:224, BMI:33.08, BP:140/75, HR:59, Temp:97.5, Ht-cm: 175.26, Wt-k.6. * Examination: G eneral Examination: GENERAL APPEARANCE: p leasant, well nourished, well developed, in no acute distress, calm and relaxed, obese, man. HEAD: a traumatic, normocephalic. EYES: e katie, perrla, anicteric, conjugate. EARS: n ormal. NOSE: s eptum intact. ORAL CAVITY: n ormal, unremarkable. NECK/THYROID: n o jugular venous distention, no carotid bruit, thyroid normal. LYMPH NODES: n o enlarged lymph nodes,spleen normal. SKIN: n o suspicious lesions, anicteric. HEART: n o clicks, gallops, murmurs, or rubs, regular rhythm, S1, S2 normal, no s3, or vascular bruits. LUNGS: c lear to auscultation . BREASTS: no masses palpable bilaterally. ABDOMEN: b owel sounds normal, no ascites, no organomegaly, no mass, centripital obesity. RECTAL EXAM: n ot examined. MUSCULOSKELETAL: e xtremities unremarkable, no clubbing, cyanosis or edema,.Decreased range of motion shoulders and lumbar spine. PERIPHERAL PULSES: n ormal. NEUROLOGIC: a lert and oriented, cranial nerves 2-12 grossly intact, deep tendon reflexes 2+ symmetrical, motor strength normal upper and lower extremities, sensory exam intact. PSYCH: a lert, oriented. Assessment: * Assessment: 1. T ype 2 diabetes mellitus without complications - E11.9 (Primary) N otes :He has been compliant with diet and therapy. His hemoglobin A1c was 5.2 In April 2024. His fasting glucose was 115. No change in his regimen was made. He was given A requisition for blood work to be done in the near future to include a hemoglobin A1c microalbumin and fasting glucose. 2 . O besity - E66.9 N otes :His weight is stable. His body mass index is 32. We discussed diet and nutrition. We reviewed a diabetic weight loss diet. We made a plan to lose weight at a rate of one half of a pound per week.He was continued on the same dose of Ozempic. 3 . E ssential hypertension - I10 N otes :His blood pressure is currently stable at 139/71. I have strongly recommended aggressive weight loss and sodium restriction. He will return to the office regularly for measurement of his vital signs. 4 . L umbar back pain - M54.50 N otes :He had a laminectomy many years ago for the same problem. This appears to be a disc problem at L5-S1. He was given gabapentin and dexamethasone. An MRI was requested. He was referred to physical therapy. 5 . B PH (benign prostatic hyperplasia) - N40.0 N otes :He says he drinks fluids copiously after dinner and rises to her 3 times a night to urinate. We have addressed this issue by discussing lifestyle modification. Plan: * Treatment: 2. O thers Continue Simvastatin Tablet, 40 MG, TAKE 1 TABLET BY MOUTH EVERYDAY AT BEDTIME; C ontinue Lisinopril Tablet, 40 MG, TAKE 1 TABLET BY MOUTH EVERY DAY; C [employer] ShopAdvisorTouch Ultra System Kit, w/Device, Check blood glucose on Thursday, Thursday, and Thursday; C [employer] [employer] Delica Lancing Dev, Check blood glucose Thursday, Thursday and Thursday; C [employer] ShopAdvisorTouch Delica Lancets 30G Miscellaneous, -, as directed, Test blood sugar Thursday, Thursday and thursday; C [employer] ShopAdvisorTouch Test Strip, -, as directed, In Vitro, Check blood glucose on Thursday, Thursday and Thursday. * Procedure Codes: * Preventive Medicine: Counseling: C are goal follow-up plan: Counseling for abnormal BMI given Y es Above Normal BMI Follow-up D ietary management education, guidance, and counseling, Dietary needs education, Exercise promotion: strength training, Exercise promotion: stretching, Feeding regime, Giving encouragement to exercise, Lifestyle education regarding diet, Nutrition / feeding management, Nutrition therapy, Prescribed activity/exercise education, Prescribed diet education, Prescribed dietary intake, Special diet education, Weight monitoring , Intervention, Order not done: Medical or Other reason not done DM Care Plan: P atient Lifestyle Goals P atient wants to be able to manage diabetes without too much effort. T reatment Goals B lood Sugars less than < 115.? B arriers n o barriers. S elf-Managment Goals W ork on weight loss, with a goal of losing 1 lb per week. * Follow Up: 4 Weeks (Reason: ov no tests) * Images: * Sign off status: Completed true * Provider: Melissa Alexander MD Date: 0 10/20/2024 Generated for Sridevi chiang/Mick/Thuan on: 1 07:32 AM EDT History and Physical Notes * HPI (History of Present Illness) Category Sub-Category Detail Notes COVID-19 Screening Questions Have you had any new onset fever, chills, cough, congestion, sore throat, shortness of breath, muscle aches?: No Examination Category Sub-Category Detail Notes General Examination GENERAL APPEARANCE: pleasant , well nourished, well developed, in no acute distress, calm and relaxed, obese, man HEAD: atraumatic, normocep halic EYES: eomi, perrla, anicte caroline, conjugate EARS: normal NOSE: septum intact NECK/THYROID: no jugular venous di stention, no carotid bruit, thyroid normal HEART: no clicks, gallops, murmurs, or rubs, regular rhythm, S1, S2 normal, no s3, or vascular bruits LUNGS: clear to auscultatio n ABDOMEN: bowel sounds normal, no ascites, no organomegaly, no mass, centripital obesity NEUROLOGIC: alert and oriented, cranial nerves 2-12 grossly intact, deep tendon reflexes 2+ symmetrical, motor strength normal upper and lower extremities, sensory exam intact SKIN: no suspicious lesion s, anicteric PERIPHERAL PULSES: normal BREASTS: no masses palpable b ilaterally MUSCULOSKELETAL: extremities unremark able, no clubbing, cyanosis or edema,.Decreased range of motion shoulders and lumbar spine LYMPH NODES: no enlarged lymph no akin,spleen normal RECTAL EXAM: not examined PSYCH: alert, oriented ORAL CAVITY: normal, unremarkable
--- OUTSIDE RECORDS SUMMARY | 2024-11-15 05:30 | XMS_ITS ---
Author Organization Damon Alexander III, MD Address [address] [place] [address] Care Team Providers Care Blackjack Dealer Name Role Phone Dr. Damon Alexander III Primary Care Provider Allergies Allergen (clinical drug ingredient) Drug/Non Drug Allergy documented on EMR Reaction Allergy Type Onset Date Status No Known Drug Allergy Unknown Drug Allergy Active REASON FOR VISIT Ozempic weight-loss program, Obesity, Diabetes, Hypertension, Benign prostatic hypertrophy, Hyperlipidemia Medications Medication SIG (Take, Route, Frequency, Duration) Notes Start Date End Date Status Lyrica 75 MG 1 capsule Orally twice a day Active PathoQuest Delica Lancets 30G - as directed Test blood sugar Thursday, Thursday and thursday Active TruzipTouch Test - as directed In Vitro Check blood glucose on Thursday, Thursday and Thursday Active Fish Oil 1000 MG 1 capsule with a yao l Orally Once a day Active Adult Aspirin EC Low Strength 81 MG 1 tablet Orally Once a day Active Lisinopril 40 MG TAKE 1 TABLET BY MOUTH EVERY DAY Active TruzipToInitiative Gaming Ultra System w/Device Check blood glucose on Thursday, Thursday, and Thursday06/15/2023 Active Simvastatin 40 MG TAKE 1 TABLET BY MOUTH EVERYDAY AT BEDTIME Active Ozempic (0.25 or 0.5 MG/DOSE) 2 MG/3ML 0.5mg once a week (increased from 0.25mg) Subcutaneous once a week for four weeks DX: Diabetes E 11.9 and Obesity E66.1 12/02/2023 Active Lino Govea Dev Check blood glucose Thursday, Thursday and Thursday06/15/2023 Active metFORMIN HCl 500 MG TAKE 1 TABLET BY MOUTH EVERY DAY Active Social History Tobacco Use: Social History Observation Description Date Details (start date - stop date) Never Smoker NA - NA Sex Assigned At : Social History Observation Description Sex Assigned At Male Tobacco Use/Smoking Question Answer Notes Patient is a nonsmoker Additional Findings: Tobacco Non-User Aggressive non-smoker Vital Signs Temperature 97.5 degrees Fahrenheit 11/16/19 25 Blood pressure systolic 135 mm Hg 11/16/19 25 Blood pressure diastolic 74 mm Hg 025 Heart Rate 62 /min 11/15/2024 Height 69 in 11/15/2024 Weight 222 lbs 11/15/2024 BMI 32.78 kg/m2 11/15/2024 Encounters Encounter Location Date Provider Diagnosis Damon Alexander III, MD [address] [place] [address] [place] [address] 11/15/2024 Damon Alexander Type 2 diabetes leonardo itus without complications E11.9 ; Obesity E66.9 ; BPH (benign prostatic hyperplasia) N40.0 ; Hyperlipidemia type II E78.01 and Lumbar back pain M54.50 Assessments Encounter Date Diagnosis (ICD Code) Assessment Notes Treat ment Notes Treatment Clinical Notes 11/15/2024 Type 2 diabetes mellitus without complications (ICD-10 - E11.9) He has been compliant with diet and therapy. His hemoglobin A1c was 5.2 In April 2024. His fasting glucose was 115. No change in his regimen was made. He was given A requisition for blood work to be done in the near future to include a hemoglobin A1c microalbumin and fasting glucose. 11/15/2024 Obesity (ICD-10 - E66.9) He continues a gradual healthy weight loss. No change in his regimen was made today. 11/15/2024 BPH (benign prostati c hyperplasia) (ICD-10 - N40.0) He has been rising from sleep once a night to urinate. We discussed lifestyle modifications he could make to reduce nocturia. 11/15/2024 Hyperlipidemia type II (ICD-10 - E78.01) In the near future. He will have a fasting lipid profile done to assess the status of his lipids. Current therapy was continued. We discussed a healthy diet. 11/15/2024 Lumbar back pain (ICD-10 - M54.50) He had a laminectomy many years ago for the same problem. This appears to be a disc problem at L5-S1. He was given gabapentin and dexamethasone. An MRI was requested. He was referred to physical therapy. Plan Of Treatment Medication Medication Name Sig Start Date Stop Date Notes Lyrica 75 MG 1 capsule Orally twi ce a day OneTouch Delica Lancets 30G - as directed Test blood sugar Thursday, Thursday and thursday OneTouch Test - as directed In Vitro Check blood glucose on Thursday, Thursday and Thursday Fish Oil 1000 MG 1 capsule with a yao l Orally Once a day Adult Aspirin EC Low Strength 81 MG 1 tablet Orally Once a day Lisinopril 40 MG TAKE 1 TABLET BY NANCY TH EVERY DAY OneTouch Ultra System w/Device Check blood glucose on Thursday, Thursday, and Thursday06/15/2023 Simvastatin 40 MG TAKE 1 TABLET BY NANCY TH EVERYDAY AT BEDTIME Ozempic (0.25 or 0.5 MG/DOSE) 2 MG/3ML 0.5mg once a week (increased from 0.25mg) Subcutaneous once a week for four weeks 12/02/2023 DX: Diabetes E 11.9 and Obesity E66.1 OneTouch Delica Lancing Dev Check blood glucose Thursday, Thursday and Thursday06/15/2023 metFORMIN HCl 500 MG TAKE 1 TABLET BY MO UTH EVERY DAY Pending Test Test Name Order Date PROFILE, FASTING (COMPREHENSIVE METABOLI C) 11/15/2024 PSA, TOTAL 11/15/2024 CBC w DIFF 11/15/2024 Lipid Panel 11/15/2024 Microalbumin, Random 11/15/2024 Hemoglobin A1c 11/15/2024 Next Appt Details Follow Up: 6 Weeks, Reason: OV Provider Name:Damon Alexander , 06/15/2025 09:30:00 AM, [address] [place] [address] [address] [place], [place], [address], Progress Notes * James PROOB:[birth year] (69 yo M)Acc No.[id number]:11/15/2024 Progress Notes Patient: Ivan PINZON Provider: Melissa Alexander MD :1955 A ge:69 Y S ex:Male Date:11/15/2024 Address:[id number] Subjective: * Chief Complaints: * O zempic weight-loss programObesityDiabetesHypertensionBenign prostatic hypertrophyHyperlipidemia * HPI: C OVID-19 Screening: He is being treated with Ozempic 0.25 mg every week. He has lost another 2 pounds.? He feels healthy and well and has no complaints of nausea or abdominal pain or diarrhea. He says his diabetes is better controlled. He is rising from sleep once a night to urinate. H is dose of Ozempic was continued without change. He will followup in 6 weeks. He is doing well. Questions H ave you had any new onset fever, chills, cough, congestion, sore throat, shortness of breath, muscle aches? N o * ROS: G eneral/Constitutional: pain o nly normal aches and pains. C hills d enies.?Fatigue a dmits. F ever d enies. E NT: Decreased hearing d enies. R espiratory: Cough d enies. C ardiovascular: Chest pain with exertion d enies. D yspnea on exertion?denies. S hortness of breath d enies. G astrointestinal: Constipation o ccasional. D ecreased appetite d enies. D iarrhea d enies. H eartburn d enies. N ausea d enies. R ectal bleeding d enies. V omiting d enies. H ematology: bruising d enies. p etechiae d enies. S wollen glands n one have been noted. G enitourinary: Frequent urination o nce a night. M usculoskeletal: Muscle aches d enies. P ainful joints d enies. S ciatica d enies. W eakness d enies. S kin: Itching d enies. R kannan d enies. S kin lesion(s)?denies. N eurologic: Difficulty speaking d enies. D izziness d enies.?Headache d enies. L ow back pain d enies. P sychiatric: Depressed mood d enies. 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 He was born in [facility]. He has no toxic exposures. The patient [...] TAKE 1 TABLET BY MOUTH EVERY DAY PathoQuest Ultra System w/Device Kit Check blood glucose [...] Verified] Objective: * Vitals: H t: 69, Wt:222, BMI:32.78, BP:135/74, HR:62, Temp:97.5, Ht-cm: 175.26, Wt-k.7. * Examination: G eneral Examination: GENERAL APPEARANCE: [...] e xtremities unremarkable, no clubbing, cyanosis or edema. PERIPHERAL PULSES: n ormal. NEUROLOGIC: a lert and oriented, cranial nerves 2-12 grossly intact, deep tendon reflexes 2+ symmetrical, motor strength normal upper and lower extremities, sensory exam intact. PSYCH: a lert, oriented. Assessment: * Assessment: 1. O besity - E66.9 (Primary) N otes :He continues a gradual healthy weight loss. No change in his regimen was made today. 2 . T ype 2 diabetes mellitus without complications - E11.9 N otes :He has been compliant with diet and therapy. His hemoglobin A1c was 5.2 In April 2024. His fasting glucose was 115. No change in his regimen was made. He was given A requisition for blood work to be done in the near future to include a hemoglobin A1c microalbumin and fasting glucose. 3 . B PH (benign prostatic hyperplasia) - N40.0 N otes :He has been rising from sleep once a night to urinate. We discussed lifestyle modifications he could make to reduce nocturia. 4 . H yperlipidemia type II - E78.01 N otes :In the near future. He will have a fasting lipid profile done to assess the status of his lipids. Current therapy was continued. We discussed a healthy diet. 5 . L umbar back pain - M54.50 N otes :He had a laminectomy many years ago for the same problem. This appears to be a disc problem at L5-S1. He was given gabapentin and dexamethasone. An MRI was requested. He was referred to physical therapy. Plan: * Treatment: 2. T ype 2 diabetes mellitus without complications Continue Ozempic (0.25 or 0.5 MG/DOSE) Solution Pen-injector, 2 MG/3ML, 0.5mg once a week (increased from 0.25mg), Subcutaneous, once a week for four weeks, Notes to Pharmacist: DX: Diabetes E 11.9 and Obesity E66.1, Notes: 09/23/[address] Alexander Ozempic increased to 0.5mg once a week starting 09/26/2024; C ontinue Fish Oil Capsule, 1000 MG, 1 capsule with a meal, Orally, Once a day; C ontinue Adult Aspirin EC Low Strength Tablet Delayed Release, 81 MG, 1 tablet, Orally, Once a day;?Continue Lyrica Capsule, 75 MG, 1 capsule, Orally, twice a day; C ontinue metFORMIN HCl Tablet, 500 MG, TAKE 1 TABLET BY MOUTH EVERY DAY. L AB: PROFILE, FASTING (COMPREHENSIVE METABOLIC) L AB: PSA, TOTAL L AB: CBC w DIFF L AB: Lipid Panel L AB: Microalbumin, Random L AB: Hemoglobin A1c 3. B PH (benign prostatic hyperplasia) L AB: PROFILE, FASTING (COMPREHENSIVE METABOLIC) L AB: PSA, TOTAL L AB: CBC w DIFF L AB: Lipid Panel L AB: Microalbumin, Random L AB: Hemoglobin A1c 4. H yperlipidemia type II L AB: PROFILE, FASTING (COMPREHENSIVE METABOLIC) L AB: PSA, TOTAL L AB: CBC w DIFF L AB: Lipid Panel L AB: Microalbumin, Random L AB: Hemoglobin A1c 5. O thers Continue Simvastatin Tablet, 40 MG, TAKE 1 TABLET BY MOUTH EVERYDAY AT BEDTIME; C ontinue Lisinopril Tablet, 40 MG, TAKE 1 TABLET BY MOUTH EVERY DAY; C Animal KingdominL4 Mobile Ultra System Kit, w/Device, Check blood glucose on Thursday, Thursday, and Thursday; C Animal Kingdominue Western Oncolyticsuch Delica Lancing Dev, Check blood glucose Thursday, Thursday and Thursday; C Animal KingdominL4 Mobile Delica Lancets 30G Miscellaneous, -, as directed, Test blood sugar Thursday, Thursday and thursday; C ontinue OneTouch Test Strip, -, as directed, In [...] Goals B lood Sugars less than < 115, HbA1C < 7.0. B arriers n o barriers. S elf-Managment Goals W ork on weight loss, with a goal of losing 1 lb per week. * Follow Up: 6 Weeks (Reason: OV) * Images: * Sign off status: Completed true * Provider: Melissa Alexander MD Date: 0 11/15/2024 Generated for Sridevi chiang/Mick/Robitting on: 07:32 AM EDT History and Physical Notes [...] extremities unremark able, no clubbing, cyanosis or edema LYMPH NODES: no enlarged lymph no akin,spleen normal RECTAL EXAM: not examined PSYCH: alert, oriented ORAL CAVITY: normal, unremarkable
--- OUTSIDE RECORDS SUMMARY | 2024-12-27 05:45 | XMS_ITS ---
Author Organization Damon lAexander III, MD Address [address] [place] [address] Care Team Providers Care Assembler Fluorescent Lights Name Role Phone Dr. Damon Alexander III Primary Care Provider [phone] Allergies Allergen (clinical drug ingredient) Drug/Non Drug [...] 1 tablet Orally Once a day Active NanomechTouch Test - as directed In Vitro Check blood glucose on Thursday, Thursday and Thursday Active Lyrica 75 MG 1 capsule Orally twice a day Active metFORMIN HCl 500 MG TAKE 1 TABLET BY MOUTH EVERY DAY Active Ele[employer]uch Delica Lancets 30G - as directed Test blood sugar Thursday, Thursday and thursday Active Ozempic (0.25 or 0.5 MG/DOSE) 2 MG/3ML 0.5mg once a week (increased from 0.25mg) Subcutaneous once a week for four weeks DX: Diabetes E 11.9 and Obesity E66.1 12/02/2023 Active Lisinopril 40 MG TAKE 1 TABLET BY MOUTH EVERY DAY Active Liquid Light Ultra System w/Device Check blood glucose on Thursday, Thursday, and Thursday06/15/2023 Active Lino Mo Check blood glucose Thursday, [...] Tobacco Non-User Aggressive non-smoker Vital Signs Temperature 98.4 degrees Fahrenheit 12/28/19 25 Blood pressure systolic 119 mm Hg 12/28/19 25 Blood pressure diastolic 73 mm Hg 025 Heart Rate 71 /min 12/27/2024 Height 69 in 12/27/2024 Weight 227 lbs 12/27/2024 BMI 33.52 kg/m2 12/27/2024 Encounters Encounter Location Date Provider Diagnosis Damon Alexander III, MD [address] [place] [address] [place] [address] 12/27/2024 Damon Alexander Type 2 diabetes leonardo [...] Up: 2 Months, Reason: OV Provider Name:Damon Alexander , 06/15/2025 09:30:00 AM, [address] [place] [address] , [place] [address], [place], [address], Progress Notes * James PROOB:[birth year] (69 yo M)Acc No.[id number]:12/27/2024 Progress Notes Patient: Ivan PINZON Provider: Melissa Alexander MD :1955 A ge:69 Y S ex:Male Date:12/27/2024 Address:[id number] Subjective: * Chief Complaints: * O besityDiabetesHypertensionLumbar [...] * Medical History: * 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 He was born in [facility]. He has no toxic exposures. The [...] TAKE 1 TABLET BY MOUTH EVERY DAY Liquid Light Ultra System w/Device Kit Check blood glucose [...] 0.000 (Ref Range: 0.0-0.012 X10*3/uL) * Lab:[facility]andi naranjo [facility] * Collection Date 12/20/2024 04/04/2024 08/05/2023 Collection [...] 1 TABLET BY MOUTH EVERY DAY; C [employer] NanomechTouch Ultra System Kit, w/Device, Check blood glucose on Thursday, Thursday, and Thursday; C ontinue NanomechTouch Delica Lancing Dev, Check blood glucose Thursday, Thursday and Thursday; Rachel ontinue NanomechTouch Delica Lancets 30G Miscellaneous, -, as directed, [...] * Provider: Melissa Alexander MD Date: 0 12/27/2024 Generated for Printi ng/Mick/eTransmitting on: 1 07:32 AM EDT History and [...]
--- OUTSIDE RECORDS SUMMARY | 2025-01-12 05:46 | XMS_ITS ---
Author Organization Damon Alexander III, MD Address [address] [place] [address] [place] [address] Care Team Providers Care Computer Peripheral Equipment Operator Name Role Phone Dr. Damon Alexander III Primary Care Provider [phone] REASON FOR VISIT stopped taking Ozempic Social History Sex Assigned At : Social History Observation Description Sex Assigned At Male Encounters Encounter Location Date Provider Diagnosis Damon Alexander III, MD [address] [place] [address] [place] [address] 01/12/2025 Damon Alexander Plan Of Treatment Next Appt Details Provider Name:Damon Alexander , 06/15/2025 09:30:00 AM, [address] [place] [address] [place], [address], Progress Notes * James PROOB:[birth year] (69 yo M)Acc No.[id number]:01/12/2025 Patient: Rachel Ivan JUAREZ :1955 A ge:69 Y S ex:Male Address:[place] [address] * true * Date: Generated for Printi ng/Faxing/eTransmitting on: 07:32 AM EDT
--- OUTSIDE RECORDS SUMMARY | 2025-02-24 05:15 | XMS_ITS ---
Author Organization Damon Alexander III, MD Address [address] [place] [address] Care Team Providers Care Buffet Server Name Role Phone Dr. Damon Alexander III Primary Care Provider Allergies Allergen (clinical drug ingredient) Drug/Non Drug Allergy documented on EMR Reaction Allergy Type Onset Date Status No Known Drug Allergy Unknown Drug Allergy Active REASON FOR VISIT Obesity, Diabetes, Hypertension, Diabetic neuropathy, Hyperlipidemia, Lumbar back pain Medications Medication SIG (Take, Route, Frequency, Duration) Notes Start Date End Date Status OneTouch Test - as directed In Vitro Check blood glucose on Thursday, Thursday and Thursday Active Fish Oil 1000 MG 1 capsule with a yao l Orally Once a day Active Adult Aspirin EC Low Strength 81 MG 1 tablet Orally Once a day Active Lyrica 75 MG 1 capsule Orally twice a day Active metFORMIN HCl 500 MG TAKE 1 TABLET BY MOUTH EVERY DAY Active Lisinopril 40 MG TAKE 1 TABLET BY MOUTH EVERY DAY Active ChalkflyTouch Ultra System w/Device Check blood glucose on Thursday, Thursday, and Thursday06/15/2023 Active ChalkflyTouch Delica Lancing Dev Check blood glucose Thursday, Thursday and Thursday06/15/2023 Active OneTouch Delica Lancets 30G - as directed Test blood sugar Thursday, Thursday and thursday Active Ozempic (0.25 or 0.5 MG/DOSE) 2 MG/3ML 0.5mg once a week (increased from 0.25mg) Subcutaneous once a week for four weeks DX: Diabetes E 11.9 and Obesity E66.1 12/02/2023 Active Simvastatin 40 MG TAKE 1 [...] Tobacco Non-User Aggressive non-smoker Vital Signs Temperature 97.3 degrees Fahrenheit 02/25/20 25 Blood pressure systolic 136 mm Hg 02/25/20 25 Blood pressure diastolic 74 mm Hg 025 Heart Rate 60 /min 02/24/2025 Height 69 in 02/24/2025 Weight 226 lbs 02/24/2025 BMI 33.37 kg/m2 02/24/2025 Encounters Encounter Location Date Provider Diagnosis Damon Alexander III, MD [address] [place] [address] [facility] [place] [address] 02/24/2025 Damon Alexander Type 2 diabetes leonardo itus without complications E11.9 ; Essential hypertension I10 ; Diabetic polyneuropathy associated with type 2 diabetes mellitus E11.42 ; BPH (benign prostatic hyperplasia) N40.0 ; Hyperlipidemia type II E78.01 ; Lumbar back pain M54.50 and Obesity (BMI 30-39.9) 278.00 Assessments Encounter Date Diagnosis (ICD Code) Assessment Notes Treat ment Notes Treatment Clinical Notes 02/24/2025 Type 2 diabetes mellitus without complications (ICD-10 - E11.9) His hemoglobin A1c is quite low as is his fasting glucose. He has been compliant with his treatment.. No change in his regimen was made. He was given A requisition for blood work to be done in the near future to include a hemoglobin A1c microalbumin and fasting glucose. 02/24/2025 Essential hypertension (ICD-10 - I10) His blood pressure is currently stable. I have strongly recommended aggressive weight loss and sodium restriction. He will return to the office regularly for measurement of his vital signs. 02/24/2025 Diabetic polyneuropathy associated with type 2 diabetes mellitus (ICD-10 - E11.42) He has mild sensory deficits in his lower extremities but is able to conduct all of the activities of daily living.He saw a nneurologist recently for foot pain and was begun on Lyrica 75 mg by mouth twice a day. This has improved the pain some. 02/24/2025 BPH (benign prostati c hyperplasia) (ICD-10 - N40.0) He has been rising from sleep once a night to urinate. We discussed lifestyle modifications he could make to reduce nocturia. 02/24/2025 Hyperlipidemia type II (ICD-10 - E78.01) The current fasting lipid profile shows good control of his lipids. No change in his regimen was needed. He has lost 1 pound. We emphasized the importance of weight loss and adherence to his diabetic diet. 02/24/2025 Lumbar back pain (ICD-10 - M54.50) He had a laminectomy many years ago for the same problem. This appears to be a disc problem at L5-S1. He was given gabapentin and dexamethasone. An MRI was requested. He was referred to physical therapy. 02/24/2025 Obesity (BMI 30-39.9 ) (ICD9-CM - 278.00) We reviewed his weight loss strategy and discussed his diet and nutrition. He has lost 1 pound. We made a plan to lose weight at a rate of 1 pound per week. Plan Of Treatment Medication Medication Name Sig Start Date Stop Date Notes OneTouch Test - as directed In Vitro Check blood glucose on Thursday, Thursday and Thursday Fish Oil 1000 MG 1 capsule with a yao l Orally Once a day Adult Aspirin EC Low Strength 81 MG 1 tablet Orally Once a day Lyrica 75 MG 1 capsule Orally twi ce a day metFORMIN HCl 500 MG TAKE 1 TABLET BY MO UTH EVERY DAY Lisinopril 40 MG TAKE 1 TABLET BY NANCY TH EVERY DAY Ch[employer]fly[employer] Ultra System w/Device Check blood glucose on Thursday, Thursday, and Thursday06/15/2023 OneTouch Delica Lancing Dev Check blood glucose Thursday, Thursday and Thursday06/15/2023 OneTouch Delica Lancets 30G - as directed Test blood sugar Thursday, Thursday and thursday Ozempic (0.25 or 0.5 MG/DOSE) 2 MG/3ML 0.5mg once a week (increased from 0.25mg) Subcutaneous once a week for four weeks 12/02/2023 DX: Diabetes E 11.9 and Obesity E66.1 Simvastatin 40 MG TAKE 1 TABLET BY NANCY TH EVERYDAY AT BEDTIME Pending Test Test Name Order Date PROFILE, FASTING (COMPREHENSIVE METABOLI C) 02/24/2025 PSA, TOTAL 02/24/2025 CBC w DIFF 02/24/2025 Lipid Panel 02/24/2025 Microalbumin, Random 02/24/2025 Hemoglobin A1c 02/24/2025 Next Appt Details Follow Up: 4 Months, Reason: Annual Exam Provider Name:Damon Alexander , 06/15/2025 09:30:00 AM, [address] [place] [address] DR, [facility] [address], [facility], [address], Progress Notes * EDAHans DAVISLeiOB:[birth year] (69 yo M)Acc No.[id number]:02/24/2025 Progress Notes Patient: Rachel LARRYHanskatherine Provider: Melissa Alexander MD :1955 A ge:69 Y S ex:Male Date:02/24/2025 Address: [address] [id number] Subjective: * Chief Complaints: * O besityDiabetesHypertensionDiabetic neuropathyHyperlipidemiaLumbar back pain * HPI: C OVID-19 Screening: He returns for medical management and weight loss program. He has discontinued the use of Ozempic on his own. He states that he does not want it and it doesn't work. He has lost substantial weight without Ozempic over the last year and will attempt to continue to do so through diet and exercise. His low back pain is improving. His neuropathy is mild. He admits to nocturia once or twice a night. We have discussed lifestyle modifications that would reduce nocturia. Questions H ave you had any new onset fever, chills, cough, congestion, sore throat, shortness of breath, muscle aches? N o * ROS: G eneral/Constitutional: pain O ccasional low back pain. C hills d enies.?Fatigue a dmits. 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 He was born in [facility]. He has no toxic exposures. The patient [...] Verified] Objective: * Vitals: H t: 69, Wt:226, BMI:33.37, BP:136/74, HR:60, Temp:97.3, Ht-cm: 175.26, Wt-k.51. * P ast Orders: Lab:Microalbumin, Random * Collection Date 12/20/2024 04/04/2024 [...] 5.4 (Ref Range: <30 ug/mg cr) * Lab:Lipid Panel * Collection Date 12/20/2024 [...] mg/dL) 47 (Ref Range: >40 mg/dL) * Lab:Complete Blood Count Aut o [...] mg/dL) 9.4 (Ref Range: 8.4-10.2 mg/dL) * Lab:Prostate Specific Antige n * Collection Date 12/20/2024 04/04/2024 06/11/2022 Collection Time 06:47 AM 06:48 AM 06:27 AM Order Date 12/20/2024 04/04/2024 06/11/2022 Prostate Specific Antigen 0.21 (Ref Range: <0.05-4.0 ng/mL) 1.17 (Ref Range: <0.05-4.0 ng/mL) 0.23 (Ref Range: <0.05-4.0 ng/mL) * Lab:Hemoglobin A1c * Collection Date 12/20/2024 04/04/2024 11/25/2023 Collection Time 06:47 AM 06:48 AM 06:50 AM Order Date 12/20/2024 04/04/2024 11/25/2023 Hemoglobin A1c % 5.2 (Ref Range: <6.0 %) 5.2 (Ref Range: <6.0 %) 5.4 (Ref Range: <6.0 %) Estimated Average Glucose 103 (Ref Range: mg/dL) 103 (Ref Range: mg/dL) 108 (Ref Range: mg/dL) * Examination: G eneral Examination: GENERAL [...] e xtremities unremarkable, no clubbing, cyanosis or edema, Mild decreased range of motion lumbar spine. PERIPHERAL PULSES: n ormal. NEUROLOGIC: a lert and oriented, cranial nerves 2-12 grossly intact, deep tendon reflexes 2+ symmetrical, motor strength normal upper and lower extremities, sensory exam intact. PSYCH: a lert, oriented. Assessment: * Assessment: 1. T ype 2 diabetes mellitus without complications - E11.9 (Primary) N otes :His hemoglobin A1c is quite low as is his fasting glucose. He has been compliant with his treatment.. No change in his regimen was made. He was given A requisition for blood work to be done in the near future to include a hemoglobin A1c microalbumin and fasting glucose. 2 . E ssential hypertension - I10 N otes :His blood pressure is currently stable. I have strongly recommended aggressive weight loss and sodium restriction. He will return to the office regularly for measurement of his vital signs. 3 . D iabetic polyneuropathy associated with type 2 diabetes mellitus - E11.42? Notes :He has mild sensory deficits in his lower extremities but is able to conduct all of the activities of daily living.He saw a nneurologist recently for foot pain and was begun on Lyrica 75 mg by mouth twice a day. This has improved the pain some. 4 . B PH (benign prostatic hyperplasia) - N40.0 N otes :He has been rising from sleep once a night to urinate. We discussed lifestyle modifications he could make to reduce nocturia. 5 . H yperlipidemia type II - E78.01 N otes :The current fasting lipid profile shows good control of his lipids. No change in his regimen was needed. He has lost 1 pound. We emphasized the importance of weight loss and adherence to his diabetic diet. 6 . L umbar back pain - M54.50 N otes :He had a laminectomy many years ago for the same problem. This appears to be a disc problem at L5-S1. He was given gabapentin and dexamethasone. An MRI was requested. He was referred to physical therapy. 7 . O besity (BMI 30-39.9) - 278.00 N otes :We reviewed his weight loss strategy and discussed his diet and nutrition. He has lost 1 pound. We made a plan to lose weight at a rate of 1 pound per week. Plan: * Treatment: 2. B PH (benign prostatic hyperplasia) L AB: PROFILE, FASTING (COMPREHENSIVE METABOLIC) L AB: PSA, TOTAL L AB: CBC w DIFF L AB: Lipid Panel L AB: Microalbumin, Random L AB: Hemoglobin A1c 3. H yperlipidemia type II L AB: PROFILE, FASTING (COMPREHENSIVE METABOLIC) L AB: PSA, TOTAL L AB: CBC w DIFF L AB: Lipid Panel L AB: Microalbumin, Random L AB: Hemoglobin A1c 4. O thers Continue Simvastatin Tablet, 40 MG, TAKE 1 TABLET BY MOUTH EVERYDAY AT BEDTIME; C ontinue Lisinopril Tablet, 40 MG, TAKE 1 TABLET BY MOUTH EVERY DAY; C [employer] ChalkflyTouch Ultra System Kit, w/Device, Check blood glucose on Thursday, Thursday, and Thursday; C [employer] ChalkflyTouch Delica Lancing Dev, Check blood glucose Thursday, Thursday and Thursday; C [employer] OneTouch Delica Lancets 30G Miscellaneous, -, as directed, Test blood sugar Thursday, Thursday and thursday; C [employer] ChalkflyTouch Test Strip, -, as directed, In Vitro, [...] lb per week. * Follow Up: 4 Months (Reason: Annual Exam) * Images: * Sign off status: Completed true * Provider: Melissa Alexander MD Date: 0 02/24/2025 Generated for Abelinoi ng/Mick/eTransmitting on: 1 07:32 AM EDT History [...] extremities unremark able, no clubbing, cyanosis or edema, Mild decreased range of motion lumbar spine LYMPH NODES: no enlarged lymph no akin,spleen normal RECTAL EXAM: not examined PSYCH: alert, oriented ORAL CAVITY: normal, unremarkable
--- NOTE | ~2025-03-03 | MR_ITS ---
EXAMINATION: MRI Shoulder without contrast, left TECHNIQUE: Multiplanar multisequence MR imaging through an upper extremity joint without contrast. INDICATION: Left shoulder pain with lifting, injection 2 weeks ago, injury, fall one year ago PRIOR: X-ray performed December 22, 2020 FINDINGS: Rotator Cuff: There is a full-thickness tear of supraspinatus infraspinatus tendon with 4 cm retraction. A small remnant of the tendon remains attached at the greater tuberosity. Subscapularis tendon appears thinned. There is likely an undersurface tear involving more than half the tendon thickness. Labrum: Intact Long biceps tendon: Long biceps tendon is irregular with heterogeneous signal, likely tendinopathy and partially torn. Additionally, there is debris in the long biceps tendon sheath. Acromioclavicular joint: There is increased fluid in the AC joint. There is thickening and increased signal in the superior and inferior acromioclavicular ligaments. Acromial morphology is mildly curved, type II. There is narrowing of the subacromial space by an elevated humeral head. Axillary pouch: The axillary pouch is intact. There is a complex joint effusion. Articular cartilage: There is mild to moderate diffuse thinning of articular cartilage involving glenoid and humeral head, most pronounced in the medial humeral head and posterior glenoid. There is full-thickness articular cartilage defect in the posterior glenoid near junction with labrum with associated degenerative cystic change between 4-6:00. Bones/Marrow: There are no marrow replacing lesions. Soft tissues: There is no muscle edema. There is moderate atrophy and fatty streaking of supraspinatus muscle. There is severe atrophy and fatty replacement of infraspinatus muscle. MR/MR shoulder LT wo con IMPRESSION: Massive rotator cuff tear: Supraspinatus and infraspinatus tendons are torn and retracted 4 cm. There is associated narrowing of the subacromial space. There is moderate atrophy and fatty streaking of infraspinatus muscle and fatty replacement of most of infraspinatus muscle without edema consistent with a chronic change. There is likely a tear of the undersurface of subscapularis tendon greater than 50% thickness. There is moderate degenerative changes in the glenohumeral joint. There is full-thickness cartilage loss at the junction of posterior glenoid and labrum with degenerative cystic change between 4-6:00. There is also moderate thinning of articular cartilage across glenoid and humeral head surfaces. Mild AC joint arthropathy and AC joint effusion. There is a complex glenohumeral joint effusion suggesting underlying synovitis. Long biceps tendon is degenerated, frayed, and partially torn. There is debris in the long biceps tendon sheath. Electronically signed by: Blas Weeks MD 03/03/2025 10:52 AM EDT
--- OUTSIDE RECORDS SUMMARY | 2025-03-03 07:33 | XMS_ITS | Patient Health Record ---
Author Organization Damon Alexander III, MD Address [address] [address] [place] [address] Care Team Providers Care Teacher Music Name Role Phone Dr. Damon Alexander III Primary Care Provider [phone] Allergies Allergen (clinical drug ingredient) Drug/Non Drug [...] ff Reviewed date:04/11/2024 09:48:47 AM Interpretation: Performing Lab:[facility], [address] [place] [address] Notes/Report: White Blood Count 5.6 4.8-10.8 X10*3/uL [...] NRBC Abs Auto 0.000 0.0-0.012 X10*3/uL Comprehensive [place]. Panel Fa st Reviewed date:04/11/2024 09:48:47 AM Interpretation: Performing Lab:[facility], [address] [place] [phone] Notes/Report: Sodium 142 135-145 mmol/L Potassium 5.2 3.3-5.1 mmol/L Chloride 106 96-108 mmol/L Carbon Dioxide 26 22-29 mmol/L Anion Gap 15 12-20 Blood Urea Nitrogen 16 9-16 mg/dL Creatinine 0.93 0.5-1.4 mg/dL Estimated Glomerular Filt Rate > 60 NOTE: For -Gibraltarian individuals, multiply the result by 1.210. Chronic [...] Reviewed date:04/11/2024 09:48:47 AM Interpretation: Performing Lab:[address] [phone] Notes/Report: Triglycerides 190 <150 mg/dL Desirable Triglyceride: [...] Antigen Reviewed date:04/11/2024 09:48:47 AM Interpretation: Performing Lab:[address] [address] Notes/Report: Prostate Specific Antigen 1.17 <0.05-4.0 ng/mL PSA methodology: [employer]oun Alinity i Chemiluminescent Microparticle Immunoassay (CMIA) Microalbumin, Random Reviewed date:04/11/2024 09:48:47 AM Interpretation: Performing Lab:[address] [phone] Notes/Report: Creatinine Urine 143.78 Microalbumin Urine 23.0 Microalbum/Creatinine Ratio Ur 15.9 <30 ug/mg cr Albumin/Creatinine Ratio Reference Ranges: Normal: < 30 ug/mg creatinine Microalbuminuria: 30 - 300 ug/mg creatinine Clinical Albuminuria: > 300 ug/mg creatinine Hemoglobin A1c Reviewed date:04/11/2024 09:48:47 AM Interpretation: Performing Lab:[facility], [address] [place] [phone] Notes/Report: Hemoglobin A1c % 5.2 <6.0 % [...] average glucose, using the formula of the [id number]-Sboguix Average Glucose study (ADAG), Diabetes Care, Vol.31,#8, Dec. 2007 Complete Blood Count Auto Di ff Reviewed date:12/27/2024 09:58:12 AM Interpretation: Performing Lab:[facility], [address] [place] [phone] Notes/Report: White Blood Count 5.2 4.8-10.8 X10*3/uL [...] NRBC Abs Auto 0.000 0.0-0.012 X10*3/uL Comprehensive [place]. Panel Fa st Reviewed date:12/27/2024 09:58:12 AM Interpretation: Performing Lab:[facility], [address] [place] [phone] Notes/Report: Sodium 141 135-145 mmol/L Potassium 5.4 [...] Panel Reviewed date:12/27/2024 09:58:12 AM Interpretation: Performing Lab:[facility], [address] [place] [phone] Notes/Report: Triglycerides 181 <150 mg/dL Desirable Triglyceride: [...] Antigen Reviewed date:12/27/2024 09:58:12 AM Interpretation: Performing Lab:[facility], [address] [place] [phone] Notes/Report: Prostate Specific Antigen 0.21 <0.05-4.0 ng/mL PSA methodology: Cal[place]oun Alinity i Chemiluminescent Microparticle Immunoassay (CMIA) Microalbumin, Random Reviewed date:12/27/2024 09:58:12 AM Interpretation: Performing Lab:[facility], [address] [place] [phone] Notes/Report: Creatinine Urine 105.09 Microalbumin Urine 16.0 Microalbum/Creatinine Ratio Ur 15.2 <30 ug/mg cr Albumin/Creatinine Ratio Reference Ranges: Normal: < 30 ug/mg creatinine Microalbuminuria: 30 - 300 ug/mg creatinine Clinical Albuminuria: > 300 ug/mg creatinine Hemoglobin A1c Reviewed date:12/27/2024 09:58:12 AM Interpretation: Performing Lab:[facility], [address] [place] [phone] Notes/Report: Hemoglobin A1c % 5.2 <6.0 % [...] average glucose, using the formula of the [id number]-Yviamnb Average Glucose study (ADAG), Diabetes Care, Vol.31,#8, 2007 Diabetic Eye Exam Reviewed date:02/28/2025 01:54:07 PM Interpretation:undefined Performing Lab: Notes/Report: undefined Reason For Referral Reason Evaluate and Treat Lumbar Back Pain Diagnosis 1 Acute midline low ba ck pain without sciatica (M54.50) Diagnosis 2 Lumbar back pain (M5 4.50) Referral Organization Damon Alexander III, MD Referring Provider First Name Damon Referring Provider Last Name Benjamin Referring Provider Speciality Internal M edicine Referred Organization [facility] nter Referred Provider [facility] er, Core Physical Therapy Referred Address [address] [place] [address],[place], [id number], Referred Provider Specialty Physical [employer]ist General [...] 1 TABLET BY MOUTH EVERY DAY Active [facility] Ultra System w/Device Check blood glucose on Thursday, Thursday, and Thursday06/15/2023 Active [facility] Delica Lancing Dev Check blood glucose Thursday, Thursday and Thursday06/15/2023 Active [facility] Del[facility] Lancets 30G - as directed Test blood sugar Thursday, Thursday and thursday Active Lyrica 75 MG 1 capsule Orally twice a day Active metFORMIN HCl 500 MG TAKE 1 TABLET BY MOUTH EVERY DAY Active Simvastatin 40 MG TAKE 1 TABLET BY MOUTH EVERYDAY AT BEDTIME Active Ozempic (0.25 or 0.5 MG/DOSE) 2 MG/3ML 0.5mg once a week (increased from 0.25mg) Subcutaneous once a week for four weeks DX: Diabetes E 11.9 and Obesity E66.1 12/02/2023 Active Immunizations Vaccine Route Administration Date Status [...] This w as given to pt by [facility] pharmacy [id number] Unknown 02/26/2023 Administered [...] Status W/U Status Risk Notes Problem Obesity (960738504) Obesity (BMI 30-39.9) (278.00) Active confirmed We reviewed his weight loss strategy and discussed his diet and nutrition. He has lost 1 pound. We made a plan to lose weight at a rate of 1 pound per week. Problem 73960241 Type 2 diabetes mellitus without complications (E11.9) Active confirmed His hemoglobin A1c is quite low as is his fasting glucose. He has been compliant with his treatment.. No change in his regimen was made. He was given A requisition for blood work to be done in the near future to include a hemoglobin A1c microalbumin and fasting glucose. Problem Benign prostatic hyperplasia (031851798) BPH (benign prostatic hyperplasia) (N40.0) Active confirmed He has been rising from sleep once a night to urinate. We discussed lifestyle modifications he could make to reduce nocturia. Problem 26356876 Essential hypertension (I10) Active confirmed His blood pressure is currently stable. I have strongly recommended aggressive weight loss and sodium restriction. He will return to the office regularly for measurement of his vital signs. Problem 74674961 Diabetic polyneuropathy associated with type 2 diabetes mellitus (E11.42) Active confirmed He has mild sensory deficits in his lower extremities but is able to conduct all of the activities of daily living.He saw a nneurologist recently for foot pain and was begun on Lyrica 75 mg by mouth twice a day. This has improved the pain some. Problem Pure hypercholesterolemi a (641205935) Hyperlipidemia type II (E78.01) Active confirmed The current fasting lipid profile shows good control of his lipids. No change in his regimen was needed. He has lost 1 pound. We emphasized the importance of weight loss and adherence to his diabetic diet. Problem Low back pain (finding) (851810985) Lumbar back pain (M54.50) Active confirmed He had a laminectomy many years ago for the same problem. This appears to be a disc problem at L5-S1. He was given gabapentin and dexamethasone. An MRI was requested. He was referred to physical therapy. Problem 2890761356250 Recurrent epistaxis (R04.0) Active confirmed He has [...] for silver nitrate. Vital Signs Heart Rate 60 /min 02/24/2025 Temperature 97.3 degrees Fahrenheit 02/24/2025 Blood pressure diastolic 74 mm Hg 02/24/2025 Height 69 in 02/24/2025 Blood pressure systolic 136 mm Hg 02/24/2025 Weight 226 lbs 02/24/2025 BMI 33.37 kg/m2 02/24/2025 Encounters Encounter Location Date Provider Diagnosis Damon Alexander III, MD [address] [place] [address] [place] [phone] 04/11/2024 Damon Alexander Type 2 diabetes leonardo itus without complications E11.9 ; Obesity E66.9 ; Essential hypertension I10 ; Hyperlipidemia type II E78.0 ; Tinea corporis B35.4 and BPH (benign prostatic hyperplasia) N40.0 Damon Alexander III, MD [address] [place] [address] [place] [phone] 06/08/2024 Damon Alexander Type 2 diabetes leonardo itus without complications E11.9 ; Lumbar back pain M54.50 ; Essential hypertension I10 ; Obesity E66.9 ; Hyperlipidemia type II E78.0 and BPH (benign prostatic hyperplasia) N40.0 Damon Alexander III, MD [address] [place] [address] [place] [phone] 06/15/2024 Damon Lewisrne Type 2 diabetes leonardo itus without complications E11.9 ; Obesity E66.9 ; Essential hypertension I10 ; Hyperlipidemia type II E78.0 ; BPH (benign prostatic hyperplasia) N40.0 and Low back pain M54.5 Damon Alexander III, MD [address] [place] [address] [place] [address] 07/06/2024 Damon Pinedane Type 2 diabetes leonardo itus without complications E11.9 ; Low back pain M54.5 ; Recurrent epistaxis R04.0 ; Essential hypertension I10 and Obesity E66.9 Damon Alexander III, MD [address] [place] [address] [place] [address] 08/19/2024 Damon Pinedane Type 2 diabetes leonardo itus without complications E11.9 ; Diabetic polyneuropathy associated with type 2 diabetes mellitus E11.42 ; Essential hypertension I10 ; Obesity E66.9 ; Lumbar back pain M54.50 ; BPH (benign prostatic hyperplasia) N40.0 and Hyperlipidemia type II E78.01 Damon Alexander III, MD [address] [place] [address] [place] [address] 09/23/2024 Damon Alexander Type 2 diabetes leonardo itus without complications E11.9 ; Essential hypertension I10 ; Obesity E66.9 ; Lumbar back pain M54.50 ; Hyperlipidemia type II E78.01 and Memory loss R41.3 Damon Alexander III, MD [address] [place] [address] [place] [address] 10/20/2024 Damon Alexander Type 2 diabetes leonardo itus without complications E11.9 ; Obesity E66.9 ; Essential hypertension I10 ; Lumbar back pain M54.50 and BPH (benign prostatic hyperplasia) N40.0 Damon Alexander III, MD [address] [place] [address] [place] [address] 11/15/2024 Damon Alexander Type 2 diabetes leonardo itus without complications E11.9 ; Obesity E66.9 ; BPH (benign prostatic hyperplasia) N40.0 ; Hyperlipidemia type II E78.01 and Lumbar back pain M54.50 Damon Alexander III, MD [address] [place] [address] 12/27/2024 Damon Alexander Type 2 diabetes leonardo itus without complications E11.9 ; Hyperlipidemia type II E78.0 ; Obesity E66.9 ; Essential hypertension I10 ; BPH (benign prostatic hyperplasia) N40.0 and Lumbar back pain M54.50 Damon Alexander III, MD [address] [place] [address] 02/24/2025 Damon Alexander Type 2 diabetes leonardo itus without complications E11.9 ; Essential hypertension I10 ; Diabetic polyneuropathy associated with type 2 diabetes mellitus E11.42 ; BPH (benign prostatic hyperplasia) N40.0 ; Hyperlipidemia type II E78.01 ; Lumbar back pain M54.50 and Obesity (BMI 30-39.9) 278.00 Damon Alexander III, MD [address] [place] [address] 05/03/2024 Damon Alexander III, MD [address] [place] [address] 05/17/2024 Damon Alexander III, MD [address] [place] [address] [place] [address] 06/10/2024 Damon Alexander III, MD [address] [place] [address] [place] [address] 06/17/2024 Damon Alexander III, MD [address] [place] [address] [place] [address] 07/12/2024 Damon Alexander Type 2 diabetes leonardo itus without complications E11.9 Damon Alexander III, MD [address] [place] [address] 08/30/2024 Damon Alexander III, MD [address] [place] [address] [place] [address] 10/05/2024 Damon Alexander III, MD [address] [place] [address] [place] [address] 10/11/2024 Damon Alexander III, MD [address] [place] [address] [place] [address] 01/12/2025 Damon Alexander Assessments Encounter Date Diagnosis (ICD Code) Assessment Notes Treat ment Notes Treatment Clinical Notes 04/11/2024 Obesity (ICD-10 - E66.9) His weight [...] no change in his regimen was needed. 02/24/2025 Type 2 diabetes mellitus without complications [...] regularly for measurement of his vital signs. 07/12/2024 Type 2 diabetes mellitus without complications (ICD-10 - E11.9) He has been compliant with diet and therapy. His hemoglobin A1c was 5.2. His fasting glucose was 115. No change in his regimen was made. He was given an appointment to come to the office. 04/11/2024 Essential hypertension (ICD-10 - I10) His [...] [facility]He takes 81 mg of aspirin daily. [...] week through physical activity a healthy diet. 02/24/2025 Diabetic polyneuropathy associated with type 2 diabetes mellitus (ICD-10 - E11.42) He has mild sensory deficits in his lower extremities but is able to conduct all of the activities of daily living.He saw a nneurologist recently for foot pain and was begun on Lyrica 75 mg by mouth twice a day. This has improved the pain some. 04/11/2024 Hyperlipidemia type II (ICD-10 - E78.0) [...] for measurement of his vital signs. 02/24/2025 BPH (benign prostati c hyperplasia) (ICD-10 - N40.0) He has been rising from sleep once a night to urinate. We discussed lifestyle modifications he could make to reduce nocturia. 04/11/2024 Tinea corporis (ICD-10 - B35.4) The [...] loss and adherence to his diabetic diet. 04/11/2024 BPH (benign prostati c hyperplasia) (ICD-10 [...] He was referred to physical therapy. 02/24/2025 Lumbar back pain (ICD-10 - M54.50) [...] in fat and calories and concentrated sweets. 02/24/2025 Obesity (BMI 30-39.9 ) (ICD9-CM - 278.00) We reviewed his weight loss strategy and discussed his diet and nutrition. He has lost 1 pound. We made a plan to lose weight at a rate of 1 pound per week. Plan Of Treatment Pending Test Test Name Order Date PROFILE, FASTING (COMPREHENSIVE METABOLI C) 01/09/2022 PROFILE, FASTING (COMPREHENSIVE METABOLI C) 08/08/2021 PROFILE, FASTING (COMPREHENSIVE METABOLI C) 04/11/2019 PROFILE, FASTING (COMPREHENSIVE METABOLI C) 04/08/2023 PROFILE, FASTING (COMPREHENSIVE METABOLI C) 01/26/2020 PROFILE, FASTING (COMPREHENSIVE METABOLI C) 08/11/2019 PROFILE, FASTING (COMPREHENSIVE METABOLI C) 05/09/2021 PROFILE, FASTING (COMPREHENSIVE METABOLI C) 02/07/2021 PROFILE, FASTING (COMPREHENSIVE METABOLI C) 10/02/2022 PROFILE, FASTING (COMPREHENSIVE METABOLI C) 10/25/2020 PROFILE, FASTING (COMPREHENSIVE METABOLI C) 04/02/2022 PROFILE, FASTING (COMPREHENSIVE METABOLI C) 11/15/2024 PROFILE, FASTING (COMPREHENSIVE METABOLI C) 02/24/2025 PROFILE, FASTING (COMPREHENSIVE METABOLI C) 07/19/2020 PROFILE, FASTING (COMPREHENSIVE METABOLI C) 12/02/2023 PROFILE, RANDOM (COMPREHENSIVE METABOLIC ) 04/19/2020 PROFILE, RANDOM (COMPREHENSIVE METABOLIC ) 08/12/2023 PROFILE, RANDOM (COMPREHENSIVE METABOLIC ) 02/12/2023 PROFILE, RANDOM (COMPREHENSIVE METABOLIC ) 06/18/2022 HEMOGLOBIN A1C (GLYCOHEMOGLOBIN) 020 HEMOGLOBIN A1C (GLYCOHEMOGLOBIN) 022 HEMOGLOBIN A1C (GLYCOHEMOGLOBIN) 019 HEMOGLOBIN A1C (GLYCOHEMOGLOBIN) 020 HEMOGLOBIN A1C (GLYCOHEMOGLOBIN) 020 HEMOGLOBIN A1C (GLYCOHEMOGLOBIN) 021 HEMOGLOBIN A1C (GLYCOHEMOGLOBIN) 023 HEMOGLOBIN A1C (GLYCOHEMOGLOBIN) 021 HEMOGLOBIN A1C (GLYCOHEMOGLOBIN) 023 HEMOGLOBIN A1C (GLYCOHEMOGLOBIN) 021 HEMOGLOBIN A1C (GLYCOHEMOGLOBIN) 023 HEMOGLOBIN A1C (GLYCOHEMOGLOBIN) 021 LIPID PANEL 06/18/2022 LIPID PANEL 07/19/2020 LIPID PANEL 01/09/2022 LIPID PANEL 04/19/2020 LIPID PANEL 04/11/2019 LIPID PANEL 01/26/2020 LIPID PANEL 08/11/2019 LIPID PANEL 02/12/2023 LIPID PANEL 10/02/2022 LIPID PANEL 10/25/2020 PSA, TOTAL 12/02/2023 PSA, TOTAL 04/11/2019 PSA, TOTAL 04/02/2022 PSA, TOTAL 11/15/2024 PSA, TOTAL 02/24/2025 MICROALBUMIN, RANDOM 10/02/2022 MICROALBUMIN, RANDOM 10/25/2020 MICROALBUMIN, RANDOM 08/08/2021 MICROALBUMIN, RANDOM 02/07/2021 MICROALBUMIN, RANDOM 08/11/2019 MICROALBUMIN, RANDOM 04/11/2019 CBC w DIFF 02/07/2021 CBC w DIFF 04/02/2022 CBC w DIFF 02/12/2023 CBC w DIFF 11/15/2024 CBC w DIFF 08/11/2019 CBC w DIFF 04/11/2019 CBC w DIFF 02/24/2025 CBC w DIFF 10/02/2022 CBC w DIFF 10/25/2020 CBC w DIFF 06/18/2022 CBC w DIFF 08/12/2023 CBC w DIFF 07/19/2020 CBC w DIFF 01/09/2022 CBC w DIFF 04/19/2020 CBC w DIFF 08/08/2021 CBC w DIFF 05/09/2021 CBC w DIFF 01/26/2020 CBC WITH AUTO DIFF 12/02/2023 CBC WITH AUTO DIFF 04/08/2023 Lipid Panel 02/07/2021 Lipid Panel 04/02/2022 Lipid Panel 11/15/2024 Lipid Panel 02/24/2025 Lipid Panel 12/02/2023 Lipid Panel 08/12/2023 Lipid Panel 04/08/2023 Lipid Panel 08/08/2021 Lipid Panel 05/09/2021 Vitamin D 25-OH Total 04/02/2022 Microalbumin, Random 11/15/2024 Microalbumin, Random 02/24/2025 Microalbumin, Random 12/02/2023 Microalbumin, Random 04/08/2023 XR lumbar spine 4V min 06/08/2024 XR sacrum coccyx min 2V 06/08/2024 Hemoglobin A1c 04/02/2022 Hemoglobin A1c 11/15/2024 Hemoglobin A1c 08/12/2023 Hemoglobin A1c 02/24/2025 Hemoglobin A1c 12/02/2023 Hemoglobin A1c 04/08/2023 Next Appt Details Provider Name:Damon Alexander , 06/15/2025 09:30:00 AM, [address] [place] [address] [address], [place], [phone], Insurance Providers Payer Name Payer Address Payer Phone Subscriber Number Group Number Insured Name Patient Relationship to Insured Coverage Start Date Coverage End Date [employer] [address] [place] [address] [id number] Ivan Haley Self - patient is the insured MEDICARE [facility] [address] [place] [phone] [id number] Ivan Haley Self - patient is the [...]
== END 2025-03-03 07:22 | disposition home or self-care (01) ==
LOC: HO.MRI 07:21
PROVIDERS: PCP Internal Medicine Medical Oncology; Visit Provider Orthopaedic Surgery
DX: M67.912 Unspecified disorder of synovium and tendon, left shoulder (principal)
CPT/HCPCS: 73221

== ENCOUNTER 2025-03-23 08:46 | Outpatient (AMB) | payer MEDICARE, SELFPAY ==
--- NOTE | 2025-03-23 08:47 | A.OFFVIS_ITS ---
Vital Signs 03/23/25 08:48 Height 5 ft 9 in Weight 222 lb BMI 32.8 Intake Visit Reasons: OV-MR shoulder LT review Intake Note: Ivan is a 68 right hand dominant male who presents today for an MRI review of his Left Shoulder. At his last visit on 02/02/25 the left shoulder was injected. Patient reports that this injection provided him with mild relief. Allergies No Known Allergies (NKA) Allergy (Verified 11/30/24 08:37) HPI HPI OV-MR shoulder LT review: Details: Ivan is a 68 right hand dominant male who presents today for an MRI review of his Left Shoulder. At his last visit on 02/02/25 the left shoulder was injected. Patient reports that this injection provided him with mild relief. He states he has minimal pain if he does not do certain things and states the quality of his life is not affected adversely by his shoulder at this time. He is right-hand dominant. He is interested in the results of his MRI however. 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 Physical Exam Exam Exam: Pleasant gentleman in no acute distress 30/90/130/L5 4+/5 empty can Negative lift-off Positive Man/Neer Vital Signs: BMI result Body Mass Index 32.8 Const General: no acute distress, alert and awake Orientation/consciousness: patient oriented x3 HEENT Head: Yes normocephalic and Yes atraumatic Eyes General: appearance normal, both eyes and all related structures Alignment and Position: alignment normal Conjunctivae: conjunctivae normal EOM: EOMs intact bilaterally Neck Neck: Yes normal visual inspection and Yes trachea midline Resp Other: No rerpiratory distress Effort & Inspection: normal respiratory effort and able to speak in complete sentences Cardio Other: Palpable radial pulse with no appreciable rythmic abnormalities Jugular venous distension: no JVD GI Other: No abdominal distension Back/Spine/Pelvis Cervical Spine: normal cervical lordosis and cervical ROM normal Skin General skin exam: turgor normal Rashes: no rashes Neuro General: patient oriented x3 Psych Appearance: grossly normal Affect: normal affect Attitude: cooperative Results Reviewed Results Reviewed: I personally reviewed the MR images. IMPRESSION: Massive rotator cuff tear: Supraspinatus and infraspinatus tendons are torn and retracted 4 cm. There is associated narrowing of the subacromial space. There is moderate atrophy and fatty streaking of infraspinatus muscle and fatty replacement of most of infraspinatus muscle without edema consistent with a chronic change. There is likely a tear of the undersurface of subscapularis tendon There is moderate degenerative changes in the glenohumeral joint. Assessment & Plan Assessment & Plan (1) Rotator cuff arthropathy of left shoulder: Code(s): M12.812 - Other specific arthropathies, not elsewhere classified, left shoulder Category: Medical Plan: This is a 69-year-old with left rotator cuff arthropathy. He benefitted from injections and overall his quality of life is not adversely affected by his arm. He has pretty comfortable and able to do everything he wants to do. I do not see a role for surgery at this time given his I function. I explained his diagnosis to him and the likelihood that it will not change and may in fact worsen. He understands this. He will return to see me if he would like to repeat injections or discuss surgery further but at this time no intervention warranted. Coding Level of Care Code Est Pt Level 4 (58331) Diagnoses Rotator cuff arthropathy of left shoulder M12.812
[2025-03-23 08:48] VITALS: BMI 32.8
== END 2025-03-23 09:05 | disposition home or self-care (01) ==
LOC: HO.HOS 08:46
PROVIDERS: PCP Internal Medicine Medical Oncology; Visit Provider Orthopaedic Surgery
DX: M12.812 Other specific arthropathies, not elsewhere classified, left shoulder (principal)
CPT/HCPCS: 99214

== ENCOUNTER → 2025-03-23 08:46 | Outpatient (BNVA) | payer MEDICARE, SELFPAY | PROVIDERS: PCP Internal Medicine Medical Oncology; Visit Provider Orthopaedic Surgery | DX: Z71.2 Person consulting for explanation of examination or test findings (principal); M12.812 Other specific arthropathies, not elsewhere classified, left shoulder | CPT/HCPCS: 99212 ==